=== PATIENT | female | born 1965 | race Caucasian/White ===

== ENCOUNTER 2020-10-13 19:39 | Inpatient (IN) ==
--- NOTE | 2020-10-13 21:04 | Emergency Department Note ---
Impression & Plan Cellulitis in diabetic foot, Elevated lactic acid level, Confusion, History of alcohol abuse, Fever, Hypomagnesemia ED Provider Note Provider: Fredrick Cobb MD DATE OF SERVICE: 10/13/2020 CHIEF COMPLAINT: Confusion, right foot pain HISTORY OF PRESENT ILLNESS: Patient is a 55-year-old female history of diabetes, prior alcohol abuse, Covid infection, right foot infection recently moved to the area from the [facility] presenting today complaint of right foot pain. Evidently has significant infection of this foot per initial reports previously treated. Pain over the last week or 2 has significantly worsened. reported to nursing that the patient is been quite weak and tired and lethargic since this morning. No significant traumas reported. No chest pain or shortness of breath is reported. No fever reported. Some chills reported today. Patient is evidently been a bit thirsty as well as having polyuria. No recent alcohol use is reported. She states her blood sugars have been controlled in the 200s. Patient denies focal weakness in the extremities. Did report a little bit of incontinence today. Denies significant back pain. Denies abdominal pain. Denies any headache REVIEW OF SYSTEMS: A total of 10 review of systems was obtained and negative except as stated above in the HPI. PAST MEDICAL HISTORY: As noted above MEDICATIONS: Reviewed home medication list includes insulin SOCIAL HISTORY: Recently moved to the area from [facility], lives at home with , history of alcohol abuse although reportedly sober the last several months PHYSICAL EXAM: GENERAL: alert in no acute distress on stretcher but a poor historian not oriented to year or that clearly to recent events Head: normocephalic and atraumatic EYES: No injection, discharge or icterus. PERRL NECK: Trachea midline. LUNGS: Airway patent. No retractions. Breath sounds clear with good air entry bilaterally. HEART: Regular tachycardic rate and rhythm. No chest wall tenderness ABDOMEN: Soft and non-tender, without guarding or rebound. SKIN: Acyanotic, warm, dry, without rashes EXTREMITIES: Without swelling, tenderness or deformity except for some slight erythema and warmth appreciated over the right foot and ankle on the dorsal aspect. No large wounds appreciated here. 2+ right DP pulse. NEUROLOGICAL: No focal deficits. No aphasia. No facial droop or slurred speech. Ambulatory here EK beats per sinus tachycardia. No PVC or PAC. No acute ST segment elevation or depression. QTC 513 CONTINUOUS CARDIAC MONITORING: was ordered and showed a heart rate of 90-110s bpm in sinus tachycardia and normal sinus rhythm 1 view chest x-ray per my interpretation: No evidence of pneumonia or cardiomegaly. No evidence of pleural effusion. No pneumothorax noted. 3 view right foot x-ray per my interpretation: No evidence of acute fracture or dislocation. Bony discretion of the second through fifth MTP joints of unclear chronicity. Patient's laboratory studies and imaging reviewed. Differential includes Infection, dehydration, metabolic abnormality, hy po/hyperglycemia, electrolyte disturbance, anemia, hypoxia, cardiac sources, intracerebral event, toxicologic, neurologic, as well as other pathologies. IMPRESSION/MEDICAL DECISION MAKING: Patient in this is seen with the resident physician. Upon my evaluation patient is no longer present. Patient not a significant back pain and lower suspicion for acute cauda equina at this point or spinal infection. Quite difficulty to clear history from her and although she has no focal deficits seems a bit encephalopathic and not clear with details. Patient does have a fever here. Covid test completed negative. History of Covid previously. Given some Tylenol here and some IV fluids. Some warmth and erythema to the right foot concern for infection. X-ray shows evidence of diffuse MTP bony destruction but unsure if this is related to prior infection or recurrent infection given lack of records from the outlying facility at this point. Ammonia is minimally elevated but do not believe this truly explains her confusion. CT head without acute findings. Doubt acute stroke. Patient does NOT appear meningitic and has no neck or head pain. Covered broadly vancomycin and Zosyn given history of diabetes and concerns for foot infection. Benign abdomen on exam. Chest X-ray without evidence of pneumonia. Lactate is elevated but no leukocytosis. Not hypotensive or in shock here. Given some insulin as well as again IV fluids to help with hyperglycemia with some improvement. Magnesium supplementation ordered via IV; prolonged QT noted on EKG. Troponin is not significantly elevated and doubt this represents PE or ACS. Urine not that significantly impressive for infection. Alcohol level undetectable and I doubt this is contributing to her current state. Reportedly sober since given her confusion as well as concern for infection with the elevated lactate and fevers contacted the hospitalist for admission for further care. Blood cultures were obtained. DIAGNOSIS: Cellulitis and diabetic fever, elevated lactic acid, confusion, hypomagnesemia, history of alcohol abuse, fever DISPOSITION: Hospitalist will evaluate Patient was agreeable with this plan. Past Med/Surg History Social History Smoking Status: Never smoker Hx Alcohol Use: No Hx Substance Use: No Preferred Language: Polish Crude Tester Required: No Beliefs That Will Affect Care: None Current Living Situation: Spouse Current Living Situation Comment: lives at home with Feels Safe at Home: Yes Safety Concerns: Feels Safe At This Time Assistive Devices: None Allergies Allergies Allergy/AdvReac Type Severity Reaction Status Date / Time No Known Allergies Allergy Unverified 10/13/20 23:17 Home Meds Home Medications Medication Instructions Recorded Confirmed insulin aspart U-100 100 unit/mL 1 sliding scale dose SUBCUT ACHS 10/13/20 10/13/20 subcutaneous solution (Novolog U-100 Insulin aspart) Results & Data (ED) Vital Signs Vital Signs - 24 hr 10/13/20 19:58 10/13/20 19:59 10/13/20 20:47 Temperature 37.8 C H Temperature Source Temporal Artery Scan Pulse Rate 120 H 93 H Pulse Rate [Apical] 116 H Pulse Rate from SpO2 Sensor 76 Pulse Rhythm Regular Pulse Rhythm [Apical] Pulse Strength Normal Pulse Strength [Apical] Respiratory Rate 20 22 18 Respiratory Effort / Characteristics Non-Labored Spontaneous Respiratory Depth Normal Respiratory Pattern Regular Blood Pressure 130/77 101/48 L Blood Pressure [Right Arm] 140/85 Blood Pressure Mean 94 65 Blood Pressure Mean [Right Arm] 103 Blood Pressure Position Sitting Pulse Oximetry 97 97 97 Oxygen Delivery Method Room Air Room Air Sepsis Recent Fever Within 48 Hours No Sepsis New/Unexplained Change in Mental Status No Sepsis Action Taken by Nursing No Action Required 10/13/20 21:45 10/13/20 22:20 10/14/20 00:00 Temperature 38.5 C H Temperature Source Oral Pulse Rate Pulse Rate [Apical] 116 H 115 H 102 H Pulse Rate from SpO2 Sensor Pulse Rhythm Pulse Rhythm [Apical] Regular Pulse Strength Pulse Strength [Apical] Normal Respiratory Rate 15 18 20 Respiratory Effort / Characteristics Non-Labored Non-Labored Spontaneous Respiratory Depth Normal Normal Respiratory Pattern Blood Pressure Blood Pressure [Right Arm] 147/85 H 142/91 H 118/65 Blood Pressure Mean Blood Pressure Mean [Right Arm] 105 108 82 Blood Pressure Position Pulse Oximetry 97 96 93 Oxygen Delivery Method Room Air Room Air Room Air Sepsis Recent Fever Within 48 Hours Sepsis New/Unexplained Change in Mental Status Sepsis Action Taken by Nursing Laboratory Data Result diagrams: 10/13/20 20:48 10/13/20 20:48 Lab Results 10/13/20 10/13/20 10/13/20 Range/Units 20:48 20:48 21:50 WBC 9.69 (4.8-10.8) K/uL RBC 4.50 (4.2-5.4) M/uL Hgb 11.0 L (12.0-16.0) g/dL Hct 34.4 L (37-47) % MCV 76.4 L (80-100) fL MCH 24.4 L (25-34) pg MCHC 32.0 (32-36) g/dL RDW Std Deviation 45.9 (36.4-46.3) fL RDW Coeff of Jeremie 16.6 H (11.5-14.5) % Plt Count 221 (130-400) K/uL MPV 10.3 (7.4-10.4) fL Immature Gran % (Auto) 0.2 % Neut % (Auto) 62.1 % Lymph % (Auto) 24.3 % [place] % (Auto) 13.0 % Eos % (Auto) 0.2 % Baso % (Auto) 0.2 % Neut # (Auto) 6.02 (1.4-6.5) K/uL Lymph # (Auto) 2.35 (1.2-3.4) K/uL [place] # (Auto) 1.26 H (0.11-0.59) K/uL Eos # (Auto) 0.02 (0-0.5) K/uL Baso # (Auto) 0.02 (0-0.2) K/uL Immature Gran # (Auto) 0.02 (0.00-0.02) K/uL Sodium 131 L (136-145) mmol/L Potassium 3.6 (3.5-5.1) mmol/L Chloride 100 (98-107) mmol/L Carbon Dioxide 22 (21-32) mmol/L Anion Gap 9.0 (3-11) BUN 5 L (7-18) mg/dl Creatinine 0.71 (0.6-1.2) mg/dl Est Cr Clr Drug Dosing 91.4 ml/min Est GFR ( Amer) 110.4 ml/min Est GFR (Non-Af Amer) 95.2 ml/min BUN/Creatinine Ratio 6.6 L (10-20) Glucose 311 H* (70-99) mg/dl POC Glucose (70-99) mg/dl Lactate (0.4-2.0) mmol/L Calcium 8.7 (8.5-10.1) mg/dl Magnesium 1.6 L (1.8-2.4) mg/dl Total Bilirubin 2.3 H (0.2-1) mg/dl AST 36 (15-37) U/L ALT 30 (12-78) U/L Alkaline Phosphatase 152 H (45-117) U/L Ammonia (11-32) umol/L Troponin I < 0.015 (0-0.045) ng/ml C-Reactive Protein (0-0.29) mg/dl Total Protein 8.5 H (6.4-8.2) gm/dl Albumin 3.0 L (3.4-5.0) gm/dl Globulin 5.5 H (2.5-4.0) gm/dl Albumin/Globulin Ratio 0.5 L (0.9-2) Beta-Hydroxybutyric Acd 5.70 H (0.2-2.81) mg/dl Urine Color Yellow Urine Appearance Cloudy A (Clear) Urine pH 5.0 (4.5-7.5) Ur Specific [place] 1.026 (1.000-1.030) Urine Protein Trace H (Negative) Urine Glucose (UA) 3+ H (Negative) Urine Ketones 2+ H (Negative) Urine Blood Negative (Negative) Urine Nitrite Negative (Negative) Urine Bilirubin Negative (Negative) Urine Urobilinogen Negative (Negative) Ur Leukocyte Esterase Negative (Negative) Urine WBC (Auto) 10-30 H (0-5) /hpf Urine RBC (Auto) 0-4 (0-4) /hpf U Hyaline Cast (Auto) 1-5 (0-5) /lpf U Epithel Cells (Auto) 20-30 H (0-5) /lpf Urine Bacteria (Auto) 4+ H (Negative) Urine Yeast Present A (None Prsent) Ethyl Alcohol mg/dL (0-3) mg/dl COVID-19 Eval Order SARS-CoV-2 (PCR) (Negative) 10/13/20 10/13/20 10/13/20 Range/Units 22:09 22:18 22:20 WBC (4.8-10.8) K/uL RBC (4.2-5.4) M/uL Hgb (12.0-16.0) g/dL Hct (37-47) % MCV (80-100) fL MCH (25-34) pg MCHC (32-36) g/dL RDW Std Deviation (36.4-46.3) fL RDW Coeff of Jeremie (11.5-14.5) % Plt Count (130-400) K/uL MPV (7.4-10.4) fL Immature Gran % (Auto) % Neut % (Auto) % Lymph % (Auto) % [place] % (Auto) % Eos % (Auto) % Baso % (Auto) % Neut # (Auto) (1.4-6.5) K/uL Lymph # (Auto) (1.2-3.4) K/uL [place] # (Auto) (0.11-0.59) K/uL Eos # (Auto) (0-0.5) K/uL Baso # (Auto) (0-0.2) K/uL Immature Gran # (Auto) (0.00-0.02) K/uL Sodium (136-145) mmol/L Potassium (3.5-5.1) mmol/L Chloride (98-107) mmol/L Carbon Dioxide (21-32) mmol/L Anion Gap (3-11) BUN (7-18) mg/dl Creatinine (0.6-1.2) mg/dl Est Cr Clr Drug Dosing ml/min Est GFR ( Amer) ml/min Est GFR (Non-Af Amer) ml/min BUN/Creatinine Ratio (10-20) Glucose (70-99) mg/dl POC Glucose 339 H* (70-99) mg/dl Lactate 3.6 H* (0.4-2.0) mmol/L Calcium (8.5-10.1) mg/dl Magnesium (1.8-2.4) mg/dl Total Bilirubin (0.2-1) mg/dl AST (15-37) U/L ALT (12-78) U/L Alkaline Phosphatase (45-117) U/L Ammonia (11-32) umol/L Troponin I (0-0.045) ng/ml C-Reactive Protein 2.34 H (0-0.29) mg/dl Total Protein (6.4-8.2) gm/dl Albumin (3.4-5.0) gm/dl Globulin (2.5-4.0) gm/dl Albumin/Globulin Ratio (0.9-2) Beta-Hydroxybutyric Acd (0.2-2.81) mg/dl Urine Color Urine Appearance (Clear) Urine pH (4.5-7.5) Ur Specific [place] (1.000-1.030) Urine Protein (Negative) Urine Glucose (UA) (Negative) Urine Ketones (Negative) Urine Blood (Negative) Urine Nitrite (Negative) Urine Bilirubin (Negative) Urine Urobilinogen (Negative) Ur Leukocyte Esterase (Negative) Urine WBC (Auto) (0-5) /hpf Urine RBC (Auto) (0-4) /hpf U Hyaline Cast (Auto) (0-5) /lpf U Epithel Cells (Auto) (0-5) /lpf Urine Bacteria (Auto) (Negative) Urine Yeast (None Prsent) Ethyl Alcohol mg/dL (0-3) mg/dl COVID-19 Eval Order SARS-CoV-2 (PCR) (Negative) 10/13/20 10/13/20 10/13/20 Range/Units 22:20 22:20 22:31 WBC (4.8-10.8) K/uL RBC (4.2-5.4) M/uL Hgb (12.0-16.0) g/dL Hct (37-47) % MCV (80-100) fL MCH (25-34) pg MCHC (32-36) g/dL RDW Std Deviation (36.4-46.3) fL RDW Coeff of Jeremie (11.5-14.5) % Plt Count (130-400) K/uL MPV (7.4-10.4) fL Immature Gran % (Auto) % Neut % (Auto) % Lymph % (Auto) % [place] % (Auto) % Eos % (Auto) % Baso % (Auto) % Neut # (Auto) (1.4-6.5) K/uL Lymph # (Auto) (1.2-3.4) K/uL [place] # (Auto) (0.11-0.59) K/uL Eos # (Auto) (0-0.5) K/uL Baso # (Auto) (0-0.2) K/uL Immature Gran # (Auto) (0.00-0.02) K/uL Sodium (136-145) mmol/L Potassium (3.5-5.1) mmol/L Chloride (98-107) mmol/L Carbon Dioxide (21-32) mmol/L Anion Gap (3-11) BUN (7-18) mg/dl Creatinine (0.6-1.2) mg/dl Est Cr Clr Drug Dosing ml/min Est GFR ( Amer) ml/min Est GFR (Non-Af Amer) ml/min BUN/Creatinine Ratio (10-20) Glucose (70-99) mg/dl POC Glucose (70-99) mg/dl Lactate (0.4-2.0) mmol/L Calcium (8.5-10.1) mg/dl Magnesium (1.8-2.4) mg/dl Total Bilirubin (0.2-1) mg/dl AST (15-37) U/L ALT (12-78) U/L Alkaline Phosphatase (45-117) U/L Ammonia 47.6 H (11-32) umol/L Troponin I (0-0.045) ng/ml C-Reactive Protein (0-0.29) mg/dl Total Protein (6.4-8.2) gm/dl Albumin (3.4-5.0) gm/dl Globulin (2.5-4.0) gm/dl Albumin/Globulin Ratio (0.9-2) Beta-Hydroxybutyric Acd (0.2-2.81) mg/dl Urine Color Urine Appearance (Clear) Urine pH (4.5-7.5) Ur Specific [place] (1.000-1.030) Urine Protein (Negative) Urine Glucose (UA) (Negative) Urine Ketones (Negative) Urine Blood (Negative) Urine Nitrite (Negative) Urine Bilirubin (Negative) Urine Urobilinogen (Negative) Ur Leukocyte Esterase (Negative) Urine WBC (Auto) (0-5) /hpf Urine RBC (Auto) (0-4) /hpf U Hyaline Cast (Auto) (0-5) /lpf U Epithel Cells (Auto) (0-5) /lpf Urine Bacteria (Auto) (Negative) Urine Yeast (None Prsent) Ethyl Alcohol mg/dL < 3.0 (0-3) mg/dl COVID-19 Eval Order Covid19 at [facility] SARS-CoV-2 (PCR) (Negative) 10/13/20 Range/Units 22:31 WBC (4.8-10.8) K/uL RBC (4.2-5.4) M/uL Hgb (12.0-16.0) g/dL Hct (37-47) % MCV (80-100) fL MCH (25-34) pg MCHC (32-36) g/dL RDW Std Deviation (36.4-46.3) fL RDW Coeff of Jeremie (11.5-14.5) % Plt Count (130-400) K/uL MPV (7.4-10.4) fL Immature Gran % (Auto) % Neut % (Auto) % Lymph % (Auto) % [place] % (Auto) % Eos % (Auto) % Baso % (Auto) % Neut # (Auto) (1.4-6.5) K/uL Lymph # (Auto) (1.2-3.4) K/uL [place] # (Auto) (0.11-0.59) K/uL Eos # (Auto) (0-0.5) K/uL Baso # (Auto) (0-0.2) K/uL Immature Gran # (Auto) (0.00-0.02) K/uL Sodium (136-145) mmol/L Potassium (3.5-5.1) mmol/L Chloride (98-107) mmol/L Carbon Dioxide (21-32) mmol/L Anion Gap (3-11) BUN (7-18) mg/dl Creatinine (0.6-1.2) mg/dl Est Cr Clr Drug Dosing ml/min Est GFR ( Amer) ml/min Est GFR (Non-Af Amer) ml/min BUN/Creatinine Ratio (10-20) Glucose (70-99) mg/dl POC Glucose (70-99) mg/dl Lactate (0.4-2.0) mmol/L Calcium (8.5-10.1) mg/dl Magnesium (1.8-2.4) mg/dl Total Bilirubin (0.2-1) mg/dl AST (15-37) U/L ALT (12-78) U/L Alkaline Phosphatase (45-117) U/L Ammonia (11-32) umol/L Troponin I (0-0.045) ng/ml C-Reactive Protein (0-0.29) mg/dl Total Protein (6.4-8.2) gm/dl Albumin (3.4-5.0) gm/dl Globulin (2.5-4.0) gm/dl Albumin/Globulin Ratio (0.9-2) Beta-Hydroxybutyric Acd (0.2-2.81) mg/dl Urine Color Urine Appearance (Clear) Urine pH (4.5-7.5) Ur Specific [place] (1.000-1.030) Urine Protein (Negative) Urine Glucose (UA) (Negative) Urine Ketones (Negative) Urine Blood (Negative) Urine Nitrite (Negative) Urine Bilirubin (Negative) Urine Urobilinogen (Negative) Ur Leukocyte Esterase (Negative) Urine WBC (Auto) (0-5) /hpf Urine RBC (Auto) (0-4) /hpf U Hyaline Cast (Auto) (0-5) /lpf U Epithel Cells (Auto) (0-5) /lpf Urine Bacteria (Auto) (Negative) Urine Yeast (None Prsent) Ethyl Alcohol mg/dL (0-3) mg/dl COVID-19 Eval Order SARS-CoV-2 (PCR) NEGATIVE (Negative) Administered Medications Discontinued Medications Acetaminophen (Acetaminophen 500 Mg Tab) 1,000 mg PO NOW STA Stop: 10/13/20 22:02 Last Admin: 10/13/20 22:15 Dose: 1,000 mg Documented by: [id number] Sodium Chloride (Nss) 500 mls @ 999 mls/hr IV .Q31M ONE Stop: 10/13/20 22:25 Last Infusion: 10/13/20 23:20 Dose: 0 mls/hr Documented by: [id number] Admin: 10/13/20 22:17 Dose: 999 mls/hr Documented by: [id number] Magnesium Sulfate/Dextrose (Magnesium Sulfate / D5w) 1 gm in 100 mls @ 100 mls/hr IV NOW STA Stop: 10/13/20 22:57 Last Infusion: 10/13/20 23:59 Dose: 0 mls/hr Documented by: [id number] Admin: 10/13/20 22:15 Dose: 100 mls/hr Documented by: [id number] Piperacillin Sod/Tazobactam Sod (Zosyn) 4.5 gm in 120 mls @ 240 mls/hr IV NOW ONE Stop: 10/13/20 23:27 Last Infusion: 10/13/20 23:34 Dose: 0 mls/hr Documented by: [id number] Admin: 10/13/20 23:11 Dose: 240 mls/hr Documented by: [id number] Sodium Chloride (Nss 1000ml) 1,000 mls @ 999 mls/hr IV .Q1H1M ONE Stop: 10/13/20 23:59 Last Infusion: 10/14/20 01:50 Dose: 0 mls/hr Documented by: [id number] Admin: 10/13/20 23:33 Dose: 999 mls/hr Documented by: [id number] Vancomycin HCl 1,500 mg/ (Sodium Chloride) 530 mls @ 200 mls/hr IV NOW ONE Stop: 10/14/20 02:08 Last Admin: 10/13/20 23:59 Dose: 200 mls/hr Documented by: [id number] Insulin Aspart (Insulin Aspart Per Unit) 4 units SC ONE STA Stop: 10/13/20 22:09 Last Admin: 10/13/20 22:20 Dose: 4 units Documented by: [id number] Cosigned by: [id number] Magnesium Oxide (Magnesium Oxide 400 Mg Tab) 400 mg PO ONE ONE Stop: 10/13/20 21:57 Last Admin: 10/13/20 22:23 Dose: Not Given Documented by: [id number] Potassium Chloride (Potassium Chloride Pwd 20 Meq Pack) 40 meq PO ONE ONE Stop: 10/13/20 22:00 Last Admin: 10/13/20 22:26 Dose: 40 meq Documented by: [id number] Discharge Plan Visit Data Chief Complaint: Illness Stated Complaint: DIABETIC, WEAK, LETHARGIC, BLEEDING, INCONTINENT ED Provider: Fredrick Cobb ED Midlevel Provider: Kevin Zartae Discharge Problem: Cellulitis in diabetic foot, Elevated lactic acid level, Confusion, History of alcohol abuse, Fever, Hypomagnesemia Patient Disposition: Admitted As Inpatient Discharge Instructions Interventions: ED Discharge Assessment Last Done: 10/14/20 01:21
[2020-10-13 21:12] LABS: Basophils # (auto) 0.02 K/uL (0-0.2); Basophils % (auto) 0.2 %; Eosinophils # (auto) 0.02 K/uL (0-0.5); Eosinophils % (auto) 0.2 %; Hematocrit (blood only) 34.4 % (37-47); Immature Granulocytes # (auto) 0.02 K/uL (0.00-0.02); Immature Granulocytes % (auto) 0.2 %; Lymphocytes # (auto) 2.35 K/uL (1.2-3.4); Lymphocytes % (auto) 24.3 %; Mean Corpuscular Hemoglobin 24.4 pg (25-34); Mean Corpuscular Volume 76.4 fL (80-100); Mean Platelet Volume 10.3 fL (7.4-10.4); Monocytes # (auto) 1.26 K/uL (0.11-0.59); Neutrophils # (auto) 6.02 K/uL (1.4-6.5); Neutrophils % (auto) 62.1 %; Platelet Count 221 K/uL (130-400); RDW Coefficient of Variation 16.6 % (11.5-14.5); RDW Standard Deviation 45.9 fL (36.4-46.3); White Blood Count 9.69 K/uL (4.8-10.8)
[2020-10-13 21:30] LABS: Alanine Aminotransferase 30 U/L (12-78); Albumin Globulin Ratio 0.5 (0.9-2); Alkaline Phosphatase 152 U/L (45-117); Aspartate Aminotransferase 36 U/L (15-37); BUN Creatinine Ratio 6.6 (10-20); Bilirubin,Total 2.3 mg/dl (0.2-1); Blood Urea Nitrogen 5 mg/dl (7-18); Calcium 8.7 mg/dl (8.5-10.1); Carbon Dioxide 22 mmol/L (21-32); Chloride 100 mmol/L (98-107); Creatinine Clr Calc Pharmacy 91.4 ml/min; Est GFR (African American) 110.4 ml/min; Est GFR (Non-African American) 95.2 ml/min; Globulin 5.5 gm/dl (2.5-4.0); Glucose 311 mg/dl (70-99); Magnesium 1.6 mg/dl (1.8-2.4); Potassium 3.6 mmol/L (3.5-5.1); Sodium 131 mmol/L (136-145); Total Protein 8.5 gm/dl (6.4-8.2); Troponin I < 0.015 ng/ml (0-0.045)
[2020-10-13] MEDS ORDERED: SODIUM CHLORIDE 0.9% 500 ML IV ONE (21:55)
[2020-10-13] MEDS ORDERED: MAGNESIUM OXIDE 400 MG TAB PO ONE (21:56)
[2020-10-13] MEDS ORDERED: MAGNESIUM SULFATE / D5W 1 GM/100 ML BAG IV STA (21:58)
[2020-10-13] MEDS ORDERED: INSULIN ASPART 100 UNITS/ML 3 ML PEN SC ONE (21:59)
[2020-10-13] MEDS ORDERED: POTASSIUM CHLORIDE PWD 20 MEQ PACK PO ONE (21:59)
[2020-10-13] MEDS ORDERED: ACETAMINOPHEN 500 MG TAB PO STA (22:01)
[2020-10-13] MEDS ORDERED: INSULIN ASPART PER UNIT SC STA (22:08)
[2020-10-13 22:09] LABS: Appearance Urine Cloudy (Clear); Bacteria Urine Automated 4+ (Negative); Bilirubin Urine Negative (Negative); Blood Urine Negative (Negative); Color Urine Yellow; Epithelial Cell Urine Auto 20-30 /lpf (0-5); Glucose Urine UA 3+ (Negative); Ketones Urine 2+ (Negative); Leukocyte Esterase Urine Negative (Negative); Nitrite Urine Negative (Negative); Protein Urine Trace (Negative); Specific Gravity Urine 1.026 (1.000-1.030); Urobilinogen Urine Negative (Negative)
[2020-10-13 22:23] LABS: RBC Urine Automated 0-4 /hpf (0-4)
[2020-10-13 22:44] LABS: C Reactive Protein 2.34 mg/dl (0-0.29)
[2020-10-13] MEDS ORDERED: PIPERACILL/TAZOBAC CONSULT ACTIVE PRN (22:58)
[2020-10-13] MEDS ORDERED: PIPERACILLIN/TAZOBACTAM 4.5 GM/120 ML BAG IV ONE (22:58)
[2020-10-13] MEDS ORDERED: SODIUM CHLORIDE 0.9% 1000ML 1,000 ML IV ONE (22:59)
[2020-10-13] MEDS ORDERED: VANCOMYCIN HCL 1,500 MG in SODIUM CHLORIDE 0.9% 500 ML IV ONE (23:30)
[2020-10-13] MEDS ORDERED: VANCOMYCIN CONSULT ACTIVE PRN (23:30)
[2020-10-14] MEDS ORDERED: INSULIN GLARGINE SOLOSTAR 100 UNITS/ML 3 ML PEN SC STA (00:30)
[2020-10-14] MEDS ORDERED: GLUCAGON FOR INJ 1 MG VIAL SQ PRN (02:01)
[2020-10-14] MEDS ORDERED: PIPERACILL/TAZOBAC CONSULT ACTIVE PRN (02:01)
[2020-10-14] MEDS ORDERED: CARBOHYDRATES FOR HYPOGLYCEMIA PO PRN (02:01)
[2020-10-14] MEDS ORDERED: VANCOMYCIN CONSULT ACTIVE PRN (02:01)
[2020-10-14] MEDS ORDERED: DEXTROSE 50% 50 ML SYRINGE IV PRN (02:01)
[2020-10-14] MEDS ORDERED: ONDANSETRON INJ 2 MG/ML 2 ML VIAL IV PRN (02:01)
[2020-10-14] MEDS ORDERED: GLUCOSE 40% GEL 15 GM TUBE PO PRN (02:01)
[2020-10-14] MEDS ORDERED: GLUCOSE 10 TABS/TUBE PO PRN (02:01)
[2020-10-14] MEDS: INSULIN ASPART 100 UNITS/ML 3 ML PEN SC SCH ×4 (02:56→21:39)
[2020-10-14] MEDS: NSS + 20MEQ KCL 20 MEQ/1,000 ML BAG IV SCH ×3 (02:57→16:34)
[2020-10-14] MEDS: PIPERACILLIN/TAZOBACTAM 3.375 GM in DEXTROSE 5% 100 ML IV SCH ×3 (03:03→21:38)
[2020-10-14 03:05] LABS: Phosphorus 2.4 mg/dl (2.5-4.9)
[2020-10-14] MEDS ORDERED: SODIUM CHLORIDE 0.9% 1000ML 1,000 ML IV SCH (05:07)
--- NOTE | 2020-10-14 05:35 | History & Physical Report ---
Date of Service October 14, 2020 Assessment & Plan (1) Encephalopathy acute: Plan: Acute encephalopathy- We did not order baseline is May be associated with urinary tract infection and or diabetic foot infection Follow progress as treatments continue (2) Cellulitis in diabetic foot: Plan: Right foot cellulitis/severe deformity of MTPs 2 through 5- Patient reportedly had history of infection in right foot. Question whether this may have been a site of osteomyelitis. Further imaging such as CT or MRI is indicated (3) Confusion: Plan: Confusion/secondary to acute encephalopathy- Follow clinical examination treatments occur to underlying causes (4) History of alcohol abuse: Plan: No recent use per family. Would have a low threshold for starting AWSS protocol (5) Hypomagnesemia: Plan: Magnesium 1.6 upon admission, replaced with 2 g magnesium sulfate IV. Repeat laboratories in a.m. (6) Diabetes mellitus: Plan: Glucose 311 upon admission Start Lantus insulin 10 units subcu now, and then 10 units subcu twice daily. Placed on Accu-Cheks before meals and at bedtime with NovoLog coverage per scale (7) Right foot infection: Plan: See above (8) UTI (urinary tract infection): Plan: Follow urine culture and sensitivity On vancomycin IV and Zosyn IV as noted above Admission and Anticipated Discharge Date Admission Date: October 14, 2020 History of Present Illness Chief Complaint: The patient was brought to the emergency department by the melva palafox's , who reports that the patient has been quite weak, lethargic and having decreased responsiveness since earlier in the morning. The patient herself is unable to contribute significantly to her HPI or review of systems due to altered mental status Primary Care Provider: NO PCP Little information is provided by patient due to altered mental state. Her does relate that she has had a history of diabetes mellitus, former alcohol abuse, low magnesium and has had a infection in her right foot requiring IV antibiotics. Allergies Allergy/AdvReac Type Severity Reaction Status Date / Time No Known Allergies Allergy Unverified 10/13/20 23:17 Home Medications Medication Instructions Recorded Confirmed Type insulin aspart U-100 100 unit/mL 1 sliding scale dose SUBCUT ACHS 10/13/20 10/13/20 History subcutaneous solution (Novolog U-100 Insulin aspart) Past Med/Surg History Medical History (Updated 10/14/20 @ 05:31 by Mariusz Reese MD) Diabetes mellitus Social History Smoking Status: Never smoker Hx Alcohol Use: No Hx Substance Use: No Preferred Language: E[place] Wire Brusher Required: No Beliefs That Will Affect Care: None Current Living Situation: Spouse Current Living Situation Comment: lives at home with Feels Safe at Home: Yes Safety Concerns: Feels Safe At This Time Assistive Devices: None Review of Systems Review of Systems: Unobtainable due to cognitive status Physical Exam Physical Exam: The patient is lethargic, unable to communicate, normocephalic and atraumatic, lying in bed and in no acute distress. HEENT--PERRL, EOMI, mucous membranes and oropharynx dry. Neck--supple. No JVD. No bruits. Thyroid normal, trachea midline, no adenopathy. Heart--normal S1 and S2. No murmurs, rubs or gallops. Lungs--clear bilaterally, no respiratory distress, no accessory muscle use. Abdomen--normal bowel sounds and soft. Nontender. Nondistended, no hernias or masses, no organomegaly. Extremities--no cyanosis or clubbing. No edema. There are good distal pulses b/l. Dermatologic--skin is mildly dry. Right dorsal surface of foot with mild erythema and warmth Neurologic--cranial nerves II through XII grossly intact. Rheumatologic-limited exam Psychiatric--lethargic. Results & Data Results & Data ([facility]) Vital Signs (Past 12 Hours) Vital Signs Temp Pulse Pulse Resp BP BP Pulse Ox 10/14/20 03:41 106 H 10/14/20 02:02 99.1 F 105 H 16 122/69 97 10/14/20 01:12 98.6 F 10/14/20 00:00 102 H 20 118/65 93 10/13/20 22:20 115 H 18 142/91 H 96 10/13/20 21:45 101.3 F H 116 H 15 147/85 H 97 10/13/20 20:47 116 H 18 140/85 97 10/13/20 19:59 93 H 22 101/48 L 97 10/13/20 19:58 100.0 F H 120 H 20 130/77 97 Laboratory Results Laboratory Results WBC 9.69 K/uL (4.8-10.8) 10/13/20 20:48 RBC 4.50 M/uL (4.2-5.4) 10/13/20 20:48 Hgb 11.0 g/dL (12.0-16.0) L 10/13/20 20:48 Hct 34.4 % (37-47) L 10/13/20 20:48 MCV 76.4 fL (80-100) L 10/13/20 20:48 MCH 24.4 pg (25-34) L 10/13/20 20:48 MCHC 32.0 g/dL (32-36) 10/13/20 20:48 RDW Std Deviation 45.9 fL (36.4-46.3) 10/13/20 20:48 RDW Coeff of Jeremie 16.6 % (11.5-14.5) H 10/13/20 20:48 Plt Count 221 K/uL (130-400) 10/13/20 20:48 MPV 10.3 fL (7.4-10.4) 10/13/20 20:48 Immature Gran % (Auto) 0.2 % 10/13/20 20:48 Neut % (Auto) 62.1 % 10/13/20 20:48 Lymph % (Auto) 24.3 % 10/13/20 20:48 Phillips % (Auto) 13.0 % 10/13/20 20:48 Eos % (Auto) 0.2 % 10/13/20 20:48 Baso % (Auto) 0.2 % 10/13/20 20:48 Neut # (Auto) 6.02 K/uL (1.4-6.5) 10/13/20 20:48 Lymph # (Auto) 2.35 K/uL (1.2-3.4) 10/13/20 20:48 Phillips # (Auto) 1.26 K/uL (0.11-0.59) H 10/13/20 20:48 Eos # (Auto) 0.02 K/uL (0-0.5) 10/13/20 20:48 Baso # (Auto) 0.02 K/uL (0-0.2) 10/13/20 20:48 Immature Gran # (Auto) 0.02 K/uL (0.00-0.02) 10/13/20 20:48 Sodium 131 mmol/L (136-145) L 10/13/20 20:48 Potassium 3.6 mmol/L (3.5-5.1) 10/13/20 20:48 Chloride 100 mmol/L (98-107) 10/13/20 20:48 Carbon Dioxide 22 mmol/L (21-32) 10/13/20 20:48 Anion Gap 9.0 (3-11) 10/13/20 20:48 BUN 5 mg/dl (7-18) L 10/13/20 20:48 Creatinine 0.71 mg/dl (0.6-1.2) 10/13/20 20:48 Est Cr Clr Drug Dosing 91.4 ml/min 10/13/20 20:48 Est GFR ( Amer) 110.4 ml/min 10/13/20 20:48 Est GFR (Non-Af Amer) 95.2 ml/min 10/13/20 20:48 BUN/Creatinine Ratio 6.6 (10-20) L 10/13/20 20:48 Glucose 311 mg/dl (70-99) H* 10/13/20 20:48 POC Glucose 292 mg/dl (70-99) H 10/14/20 01:48 Lactate 2.3 mmol/L (0.4-2.0) H* 10/14/20 00:45 Calcium 8.7 mg/dl (8.5-10.1) 10/13/20 20:48 Phosphorus 2.4 mg/dl (2.5-4.9) L 10/13/20 22:09 Magnesium 1.6 mg/dl (1.8-2.4) L 10/13/20 20:48 Total Bilirubin 2.3 mg/dl (0.2-1) H 10/13/20 20:48 AST 36 U/L (15-37) 10/13/20 20:48 ALT 30 U/L (12-78) 10/13/20 20:48 Alkaline Phosphatase 152 U/L (45-117) H 10/13/20 20:48 Ammonia 47.6 umol/L (11-32) H 10/13/20 22:20 Troponin I < 0.015 ng/ml (0-0.045) 10/13/20 20:48 C-Reactive Protein 2.34 mg/dl (0-0.29) H 10/13/20 22:09 Total Protein 8.5 gm/dl (6.4-8.2) H 10/13/20 20:48 Albumin 3.0 gm/dl (3.4-5.0) L 10/13/20 20:48 Globulin 5.5 gm/dl (2.5-4.0) H 10/13/20 20:48 Albumin/Globulin Ratio 0.5 (0.9-2) L 10/13/20 20:48 Beta-Hydroxybutyric Acd 5.70 mg/dl (0.2-2.81) H 10/13/20 20:48 Urine Color Yellow 10/13/20 21:50 Urine Appearance Cloudy (Clear) A 10/13/20 21:50 Urine pH 5.0 (4.5-7.5) 10/13/20 21:50 Ur Specific [place] 1.026 (1.000-1.030) 10/13/20 21:50 Urine Protein Trace (Negative) H 10/13/20 21:50 Urine Glucose (UA) 3+ (Negative) H 10/13/20 21:50 Urine Ketones 2+ (Negative) H 10/13/20 21:50 Urine Blood Negative (Negative) 10/13/20 21:50 Urine Nitrite Negative (Negative) 10/13/20 21:50 Urine Bilirubin Negative (Negative) 10/13/20 21:50 Urine Urobilinogen Negative (Negative) 10/13/20 21:50 Ur Leukocyte Esterase Negative (Negative) 10/13/20 21:50 Urine WBC (Auto) 10-30 /hpf (0-5) H 10/13/20 21:50 Urine RBC (Auto) 0-4 /hpf (0-4) 10/13/20 21:50 U Hyaline Cast (Auto) 1-5 /lpf (0-5) 10/13/20 21:50 U Epithel Cells (Auto) 20-30 /lpf (0-5) H 10/13/20 21:50 Urine Bacteria (Auto) 4+ (Negative) H 10/13/20 21:50 Urine Yeast Present (None Prsent) A 10/13/20 21:50 Ethyl Alcohol mg/dL < 3.0 mg/dl (0-3) 10/13/20 22:20 COVID-19 Eval Order Covid19 at [facility] 10/13/20 22:31 SARS-CoV-2 (PCR) NEGATIVE (Negative) 10/13/20 22:31 Diagnostic Findings [facility] Patient: ROGER LAZCANO (Female) : 63 Status: ER Date: 10/13/20 22:54 Room #: History: CONFUSION Slices: 58 Priors: Tech: Darius Morris @ [id number] Exams: CT HEAD Contrast: Accession Numbers: [id number] Referring Physician: DEBORAH BURNHAM Preliminary Findings Only See Final Report For Complete Findings CT HEAD: Impression: No intracranial hemorrhage or other acute intracranial abnormality. No mass lesion, mass effect, or hydrocephalus. Radiologist: Aleksadnar Pascual MD Study ready at 22:56 and initial results transmitted at 23:21 *This report constitutes a preliminary interpretation only. Non-acute findings felt to be unrelated to the clinical presentation may not be discussed in this report. The study will be interpreted and a final report will be generated by the local Radiologist the following shift. To reach the hospital radiology department call [phone]. If a discrepancy is found between the preliminary and final interpretations of this study, please notify us via our Client Portal at [email or web address] under QA Exams.You can also fax this report with a description of the discrepancy, or include the final report, to our daytime fax number [phone].If faxing, please indicate the severity of discrepancy using one of the following categories: [ ] 1 - Agree/Informational [ ] 2 - Unlikely to Affect Management [ ] 3 - Possible Eventual Change of Management [ ] 4 - Probable Immediate Change of Management For all other patient related information, please fax us at [phone]. [id number] Code Status & VTE Plan Code Status Full code VTE Prophylaxis Plan VTE Prophylaxis will be ordered: Yes PG Care Time/CCT Total # of Minutes Spent Total Time Spent with Patient: Total time spent is greater than 50% in coordination of care (as documented) at patient's floor/unit and/or counseling patient: Coding Level of Care Code 50932 Initial Inpt Care Lvl 3 Diagnoses Cellulitis in diabetic foot E11.628; L03.119 Confusion R41.0 History of alcohol abuse F10.11 Hypomagnesemia E83.42 Diabetes mellitus E11.9 Right foot infection L08.9 UTI (urinary tract infection) N39.0 Encephalopathy acute G93.40
[2020-10-14] MEDS: ENOXAPARIN INJ 40 MG/0.4 ML SYR SQ SCH (06:01)
[2020-10-14 06:23] LABS: Creatinine Clr Calc Pharmacy 94.8 ml/min; Est GFR (African American) 116.8 ml/min; Est GFR (Non-African American) 100.8 ml/min
--- NOTE | 2020-10-14 06:37 | CT Scan Report ---
CT OF THE HEAD WITHOUT CONTRAST CLINICAL HISTORY: confusion COMPARISON STUDY: No previous studies for comparison. CT DOSE: 537.48 mGy.cm TECHNIQUE: Helical axial images of the head were obtained without IV contrast. Automated exposure con trol was utilized for the study. A dose lowering technique was utilized adhering to the principles o f ALARA. FINDINGS: No acute intracranial hemorrhage, midline shift or mass effect is present. The ventricular system is unremarkable. The basal cisterns are patent. No extra-axial collections are present. There are no findings to suggest acute dural sinus thrombosis or acute territorial infarct. No significant calvarial abnormalities are present. Visualized portions of the sinuses and mastoid air cells are kwesi ar. IMPRESSION: No acute intracranial findings. ACT 112: Negative or not required by law. Electronically signed by: Milton Mcintosh M.D. 10/14/2020 6:35 AM
--- NOTE | 2020-10-14 07:48 | XRay Report ---
XR chest 1V portable CLINICAL HISTORY: weakness COMPARISON STUDY: No previous studies for comparison. FINDINGS: Lung volumes are normal. Lungs are clear. There is no pneumothorax or pleural effusion. Car diac size is normal. Mediastinal contours are normal. There is no evidence for pulmonary edema. Incid ental note is made of a 4.4 cm density which projects over the left upper quadrant. IMPRESSION: 1. No acute cardiopulmonary findings. 2. Indeterminate 4.4 cm density which projects over the left upper quadrant of the abdomen. This coul d be on or within the patient. A foreign body cannot be excluded. Follow-up KUB is suggested. ACT 112: Negative or not required by law. Electronically signed by: Milton Mcintosh M.D. 10/14/2020 7:47 AM
[2020-10-14] MEDS: ACETAMINOPHEN 325 MG TAB PO PRN ×2 (07:53→23:04)
[2020-10-14 08:00] LABS: Estimated Average Glucose 424 mg/dl; Hemoglobin A1C 16.4 % (4.5-5.6)
[2020-10-14] MEDS ORDERED: PNEUMOCOCCAL POLYSACCHARIDES 25 MCG/0.5 ML VIAL/SYR IM ONE (08:00)
--- NOTE | 2020-10-14 08:13 | XRay Report ---
XR foot RT min 3V routine CLINICAL HISTORY: pain COMPARISON: None FINDINGS: No acute fracture is identified. Note is made of extensive erosive changes of the right se cond through fifth tarsometatarsal joints. There is associated soft tissue swelling. IMPRESSION: 1. No acute fracture. 2. Extensive erosive changes of the right second through fifth metatarsals with associated soft tissu e swelling. The radiographic appearance is nonspecific. This could be degenerative or infectious in e tiology. ACT 112: Negative or not required by law. Electronically signed by: Milton Mcintosh M.D. 10/14/2020 8:12 AM
[2020-10-14] MEDS ORDERED: INSULIN GLARGINE SOLOSTAR 100 UNITS/ML 3 ML PEN SC SCH (09:00)
--- NOTE | 2020-10-14 09:08 | Electrocardiogram Report ---
Test Reason : Blood Pressure : / mmHG Vent. Rate : 117 BPM Atrial Rate : 117 BPM P-R Int : 132 ms QRS Dur : 080 ms QT Int : 368 ms P-R-T Axes : 073 060 053 degrees QTc Int : 513 ms Sinus tachycardia Otherwise normal ECG No previous ECGs available Confirmed by Nilton Tapia ([id number]) on 10/14/2020 9:07:57 AM Referred By: REFERRED SELF Confirmed By:Nilton Tapia
--- NOTE | 2020-10-14 09:26 | Pharmacy Report ---
Pharmacy Abx Dose Short Note - Date of Service October 14, 2020 - Assessment & Plan Assessment 55 year old F started on vancomycin and zosyn for concerns of possible foot infection/osteomyelitis. Foot xray with extensive erosive changes, possibly degenerative or infectious etiology. Blood/urine cultures are pending currently. Patient still with fevers this AM Plan Vancomycin * Loading dose of 1500 mg x 1 given last evening (~22 mg/kg/dose) * Started on vancomycin 1 gm iv q 8 hrs per vancomycin AUC nomogram dosing (~15 mg/kg/dose) * Plan to obtain trough prior tot he 4th maintenance dose to ensure therapeutic Zosyn * 3.375 gm iv q 8 hr - appropriate for CrCl >20 Pharmacy will continue to follow and will adjust dose/frequency as necessary. Thank you.
[2020-10-14] MEDS ORDERED: LACTULOSE SYRUP 20 GM/30 ML UDC PO ONE (10:45)
[2020-10-14] MEDS ORDERED: FOLIC ACID 1 MG in SYRINGE 9.8 ML IV ONE (11:00)
[2020-10-14] MEDS: THIAMINE HCL 200 MG in SODIUM CHLORIDE 0.9% 50 ML IV SCH ×2 (11:01→23:34)
[2020-10-14] MEDS: VANCOMYCIN HCL 1,000 MG in SODIUM CHLORIDE 0.9% 250 ML IV SCH ×2 (13:36→21:37)
[2020-10-14] MEDS: INSULIN GLARGINE SOLOSTAR 100 UNITS/ML 3 ML PEN SC SCH (21:40)
--- NOTE | 2020-10-15 00:21 | Hospitalist Progress Note ---
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 chronic gout or other erosive arthropathy? Charcot foot?? (8) Hepatic encephalopathy: (9) History of esophageal varices: (10) Alcoholic cirrhosis: (11) Depression: Plan: 1. increase lantus 2. increase novolog 3. if still hyperglycemic then d/c sc shots; change to insulin drip protocol 4. cont broad-spectrum IV abx; look for other sources of infection beyond UTI 5. check anaplasmosis smear and lyme 6. MRI right foot - r/o osteo, other 7. allow clear liquids as tolerated 8. cont IV fluids 9. high-dose thiamine in the event some of her altered MS is Wernicke's 10. follow blood and urine cx's 11. told that polyuria/polydipsia/etc is due to uncontrolled DM 12. consider Rx of depression/crying spells very complicated case told there are numerous issues going on which will take time to all sort out time - 40 min Admission and Anticipated Discharge Date Admission Date: October 14, 2020 Subjective Patient confused during the visit. Unable to give any accurate history. was at bedside who provided most of the information. they recently moved to [facility] from [place] several months ago. they are building a house here. patient stated "it was our dream to move here." while discussing the above the patient cried for the first several minutes of the visit. states she has been having copious crying spells - patient can't say why. patient, when asked what is wrong, can't verbalize what is bothering her. states they have been trying to secure new physicians in [place] to no avail. reports the following - 1. patient had what sounds like bacteremia with a spinal abscess last year; was in ICU in [facility] 2. patient had been drinking daily until of this year; prior to that drank copious beer, wine and liquor 3. has had esophageal varices w/ banding 4. had COVID in spring 2019 5. has been diabetic for 5+ years; on insulin at home 6. severe polyuria, polydipsia, thirst at home for weeks or longer 7. had "good week" last week, then over the weekend became altered 8. chronic right foot pain x 1 year ; pain in mid-foot; "no one can tell us what's wrong" Review of Systems Review of Systems: Unobtainable due to cognitive status Physical Exam Physical Exam: gen - altered, crying, no distress mouth - severely dry MM neck - no JVD heart - tachy, s1 s2, no murmur lungs - CTA b/l abd - soft, NT, ND, splenomegaly, BS+ ext - right foot mildly swollen, mildly tender mid-foot to palpation; left foot wnl vascular - pulses 2+ b/l neuro - no asterixis skin - no rash, no ulcers Results & Data Results & Data ([facility]) Vital Signs (Past 12 Hours) Vital Signs Temp Pulse Pulse Resp BP Pulse Ox 10/14/20 23:54 115 H 10/14/20 22:58 39.2 C H 118 H 20 120/64 90 10/14/20 19:26 36.6 C 104 H 20 94/52 L 91 10/14/20 14:59 38.4 C H 109 H 17 110/66 91 Laboratory Results Laboratory Results - last 24 hr 10/13/20 10/14/20 10/14/20 22:09 00:41 00:45 Creatinine Est Cr Clr Drug Dosing Est GFR ( Amer) Est GFR (Non-Af Amer) POC Glucose 297 H Estimat Average Glucose Hemoglobin A1c Lactate 2.3 H* Phosphorus 2.4 L Hepatitis C Ab Screen 10/14/20 10/14/20 10/14/20 01:48 05:40 05:41 Creatinine Est Cr Clr Drug Dosing Est GFR ( Amer) Est GFR (Non-Af Amer) POC Glucose 292 H 229 H Estimat Average Glucose 424 Hemoglobin A1c 16.4 H Lactate Phosphorus Hepatitis C Ab Screen 10/14/20 10/14/20 10/14/20 05:41 05:41 07:06 Creatinine 0.62 Est Cr Clr Drug Dosing 94.8 Est GFR ( Amer) 116.8 Est GFR (Non-Af Amer) 100.8 POC Glucose 260 H Estimat Average Glucose Hemoglobin A1c Lactate Phosphorus Hepatitis C Ab Screen Neg 10/14/20 10/14/20 10/14/20 11:18 16:04 21:30 Creatinine Est Cr Clr Drug Dosing Est GFR ( Amer) Est GFR (Non-Af Amer) POC Glucose 206 H 382 H* 248 H Estimat Average Glucose Hemoglobin A1c Lactate Phosphorus Hepatitis C Ab Screen PG Care Time/CCT Total # of Minutes Spent Total Time Spent with Patient: Total time spent is greater than 50% in coordination of care (as documented) at patient's floor/unit and/or counseling patient: Coding Level of Care Code 83349 Subseq Hosp Care Lvl 3 Diagnoses Encephalopathy acute G93.40 History of alcohol abuse F10.11 Hypomagnesemia E83.42 Diabetes mellitus E11.9 UTI (urinary tract infection) N39.0 Sepsis A41.9 Abnormal x-ray R93.89 Hepatic encephalopathy K72.90 History of esophageal varices Z87.19 Alcoholic cirrhosis K70.30 Depression F32.9
[2020-10-15] MEDS: NSS + 20MEQ KCL 20 MEQ/1,000 ML BAG IV SCH ×2 (03:15→07:32)
[2020-10-15] MEDS: PIPERACILLIN/TAZOBACTAM 3.375 GM in DEXTROSE 5% 100 ML IV SCH ×3 (03:15→20:37)
[2020-10-15] MEDS: VANCOMYCIN HCL 1,000 MG in SODIUM CHLORIDE 0.9% 250 ML IV SCH ×2 (03:16→12:21)
[2020-10-15] MEDS: ENOXAPARIN INJ 40 MG/0.4 ML SYR SQ SCH (05:37)
[2020-10-15] MEDS: ACETAMINOPHEN 325 MG TAB PO PRN (05:37)
[2020-10-15 07:34] LABS: Basophils # (auto) 0.02 K/uL (0-0.2); Basophils % (auto) 0.2 %; Eosinophils # (auto) 0.15 K/uL (0-0.5); Eosinophils % (auto) 1.8 %; Hematocrit (blood only) 30.1 % (37-47); Hemoglobin 9.5 g/dL (12.0-16.0); Immature Granulocytes # (auto) 0.01 K/uL (0.00-0.02); Immature Granulocytes % (auto) 0.1 %; Lymphocytes # (auto) 1.55 K/uL (1.2-3.4); Lymphocytes % (auto) 18.9 %; Mean Corpuscular Hemoglobin 24.2 pg (25-34); Mean Corpuscular Hgb Conc 31.6 g/dL (32-36); Mean Corpuscular Volume 76.8 fL (80-100); Mean Platelet Volume 9.7 fL (7.4-10.4); Monocytes # (auto) 0.83 K/uL (0.11-0.59); Monocytes % (auto) 10.1 %; Neutrophils # (auto) 5.62 K/uL (1.4-6.5); Neutrophils % (auto) 68.9 %; Platelet Count 186 K/uL (130-400); RDW Coefficient of Variation 16.9 % (11.5-14.5); RDW Standard Deviation 47.7 fL (36.4-46.3); Red Blood Count 3.92 M/uL (4.2-5.4); White Blood Count 8.18 K/uL (4.8-10.8)
[2020-10-15 08:10] LABS: Magnesium 1.8 mg/dl (1.8-2.4); Phosphorus 1.9 mg/dl (2.5-4.9)
[2020-10-15 08:18] LABS: Procalcitonin 0.19 ng/ml (0-0.5)
[2020-10-15 08:27] LABS: Lyme Ab IgG w/WB Rflx Negative (Negative); Lyme Ab IgM w/WB Rflx Negative (Negative)
[2020-10-15] MEDS: INSULIN ASPART 100 UNITS/ML 3 ML PEN SC SCH ×4 (08:33→21:08)
[2020-10-15] MEDS: FOLIC ACID 1 MG in SYRINGE 9.8 ML IV SCH (08:34)
[2020-10-15] MEDS: INSULIN GLARGINE SOLOSTAR 100 UNITS/ML 3 ML PEN SC SCH ×2 (08:34→21:09)
[2020-10-15] MEDS: THIAMINE HCL 200 MG in SODIUM CHLORIDE 0.9% 50 ML IV SCH ×2 (08:36→20:37)
[2020-10-15 09:05] LABS: Base Excess ABG -2.6 mEq/L (-9-1.8); HCO3 ABG 20 mmol/L (19-24); Oxygen Saturation ABG 89.6 % (90-95); PCO2 ABG 30 mmHg (35-46); PO2 ABG 57 mmHg (80-95); pH ABG 7.46 (7.35-7.45)
[2020-10-15 09:08] LABS: Allen Test POS (Pos)
--- NOTE | 2020-10-15 09:09 | XRay Report ---
XR chest 1V portable CLINICAL HISTORY: hypoxia COMPARISON STUDY: October 13, 2020 FINDINGS: No pneumothorax. No pleural effusion. Redemonstration of mild prominence of the minor fissure on the right. Also linea r density is seen on the left which might represent minimal amount of fluid within accessory fissure small linear atelectasis. Diffuse reticular prominence of pulmonary interstitium is slightly worsened since prior as well as bi lateral perihilar hazy opacities associated with few air bronchograms at the right infrahilar region. Cardiomediastinal silhouette is within normal limits in size. Pulmonary vasculature is indistinct.. Osseous structures: unremarkable IMPRESSION: 1. Interval worsening of perihilar opacities. Indistinct pulmonary vasculature and diffuse prominenc e of pulmonary interstitium likely represent pulmonary edema. Right infrahilar opacity with air bronc hograms could also represent atelectasis or infiltrate. ACT 112: Negative or not required by law. The above report was generated using voice recognition software. It may contain grammatical, syntax o r spelling errors. Electronically signed by: Yessenia Angel DO 10/15/2020 9:08 AM
--- NOTE | 2020-10-15 09:40 | Magnetic Resonance Report ---
HISTORY: TECHNIQUE: MRI of the entire pain and swelling of the right foot. No open wounds. History of diabetes . foot was performed. Multiplanar multisequence imaging was performed using standard departmental pro tocol. FINDINGS: Limited exam due to motion artifact. Hallux: Osseous: Small subcortical cyst is seen within medial distal aspect of the first metatarsal bone (7/2 6). Osteophytes of the distal aspect of the first metatarsal bone is seen. No definite evidence of fr acture or dislocation. Extensor tendon: Normal. Flexor tendon: Normal. First metatarsophalangeal joint: Degenerative changes with osteophytes.. Hallux-sesamoid complex: Normal. Second ray: Osseous: Linear area of decreased signal at the midportion of the second metatarsal bone. Bone marro w edema within proximal aspect of the second metatarsal. Extensor tendon: Normal. Flexor tendon: Normal. Second metatarsophalangeal joint: Normal. Plantar plate: Normal. Third ray: Osseous: Normal appearance of the third digit. Bone marrow edema involving proximal and midportion of the third metatarsal bone. Curvilinear area of decreased signal within midportion of the third metat arsal bone. Extensor tendon: Normal. Flexor tendon: Normal. Third metatarsophalangeal joint: Normal. Plantar plate: Normal. Fourth ray: Osseous: Normal appearance of the fourth digit. Bone marrow edema is seen within proximal and midport ion of the fourth metatarsal bone. Extensor tendon: Normal. Flexor tendon: Normal. Fourth metatarsophalangeal joint: Normal. Plantar plate: Normal. Fifth ray: Osseous: Normal appearance of the fifth digit. Bone marrow edema involving distal aspect of the diffu se metatarsal bone. Extensor tendon: Normal. Flexor tendon: Normal. Fifth metatarsophalangeal joint: Normal. Plantar plate: Is not well seen. Interspaces: Interdigital ([place]) neuroma: None. There is diffuse soft tissue edema surrounding second-fifth metatarsal bones which is also associated with heterogeneous bone marrow signal and subluxation of the tarsal bones. Heterogeneous appearance of the tarsometatarsal region could be due to motion artifact and severe degenerative changes that we re also seen on recent radiograph of the right foot and might represent neuropathic joint. Soft tissues: Subcutaneous soft tissue edema is seen. Muscles: Normal. Limited exam due to motion artifact. IMPRESSION: 1. Diffuse soft tissue edema associated with bone marrow edema at the metatarsal region involving sec ond-fifth metatarsal bones and tarsometatarsal region might represent neuropathic joint however infla mmatory process/osteomyelitis is also possible. 2. Linear/curvilinear areas of decreased signal within second and third metatarsal bones might repres ent avascular necrosis. Fracture deformity is less likely. 3. Degenerative changes of the first metatarsophalangeal joint and subchondral cysts. 4. Limited exam due to motion artifact. ACT 112: Negative or not required by law. Electronically signed by: Yessenia Angel DO 10/15/2020 9:39 AM
[2020-10-15 09:46] LABS: Albumin Globulin Ratio 0.5 (0.9-2); Albumin Level 2.1 gm/dl (3.4-5.0); BUN Creatinine Ratio 9.2 (10-20); Bilirubin,Total 1.7 mg/dl (0.2-1); Calcium 7.2 mg/dl (8.5-10.1); Creatinine Clr Calc Pharmacy 143.1 ml/min; Est GFR (African American) 129.8 ml/min; Globulin 4.4 gm/dl (2.5-4.0); Potassium 3.4 mmol/L (3.5-5.1); Total Protein 6.5 gm/dl (6.4-8.2)
[2020-10-15] MEDS ORDERED: FUROSEMIDE 20 MG in SYRINGE 0 ML IV ONE (10:00)
[2020-10-15] MEDS ORDERED: POTASSIUM CHLORIDE CRTAB 20 MEQ TABCR PO STA ×2 (10:03→19:50)
--- NOTE | 2020-10-15 10:09 | Hospitalist Progress Note ---
Date of Service October 15, 2020 Assessment & Plan (1) Staphylococcus aureus bacteremia: Plan: Presented with acute metabolic encephalopathy and fever initially with unknown source except for possible UTI. Now growing Staphylococcus species in blood cultures-this is the source of her fever No evidence of shock She does have a painful swollen right foot but is not erythematous and has been this way for over a year and may be a Charcot foot-MRI could be consistent with osteomyelitis and orthopedics consultation has been requested She does have a history of epidural abscess that required drainage, however she is not having any back pain or radiculopathy or lower extremity weakness suggestive of this No skin lesions anywhere CT of chest/abdomen/pelvis without source of infection, do not suspect pneumonia at this time but rather compressive atelectasis from pleural effusions and pulmonary edema-however, it is possible she could have a Staphylococcus pneumonia -Continue Zosyn and vancomycin -Infectious disease consultation requested -Check echocardiogram -Follow-up final blood cultures -Repeat blood cultures today Tylenol as needed for fevers DC IV fluids and given Lasix as below for hypoxia and pulmonary edema (2) Septicemia: Plan: As above We will make sure to follow-up on Anaplasma DNA PCR as this is pending, however do not suspect anaplasmosis at this time (3) Encephalopathy acute: Plan: Secondary to septicemia as above plus some component of hepatic encephalopathy Now much improved with treating with antibiotics as well as lactulose Continue IV thiamine in case of Warnicke's component Continue lactulose 30 g 3 times daily and started rifaximin as per GI -Continue with antibiotics as above (4) Epigastric pain: Plan: Does have a history of known varices which were seen on CT abdomen/pelvis today Has cholelithiasis and distended gallbladder but no abdominal tenderness or Cowart sign on examination Total bilirubin is mildly elevated but improved from previous and other LFTs are normal Do not suspect acute cholecystitis Will start Protonix 40 mg p.o. twice daily in case of gastritis (5) Acute respiratory failure with hypoxia: Plan: Pulse ox in the 70s on the morning of 10/15 requiring 5 L nasal cannula Chest CT angiogram performed was negative for PE but did show bilateral pleural effusions and compressive atelectasis and possible pneumonia Patient is volume overloaded after receiving IV fluids for fevers and sepsis -Give IV Lasix 20 mg IV twice daily today with potassium replacement Follow urine output Typically takes spironolactone 100 mg daily and Lasix 40 mg p.o. 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 chronic gout or other erosive arthropathy? Charcot foot?? MRI obtained in consultation with orthopedics appreciated (10) Hepatic encephalopathy: Plan: As above, now improved with lactulose Continue lactulose and add rifaximin (11) History of esophageal varices: Plan: Noted Starting Protonix Watch for bleeding Hemoglobin down slightly today but is likely hemodilution all Follow CBC No evidence of ongoing bleeding (12) Alcoholic cirrhosis: Plan: Has been sober since June 2020 but has a long history of cirrhosis Has not yet established with GI in this area Consult GI here Starting lactulose, rifaximin With portal hypertension-Will need beta-gm at some point after this infection is cleared up (13) Foot pain, right: Plan: As above, right foot MRI obtained for chronic swelling and pain in the right foot Could be Charcot foot versus infection versus destructive inflammatory arthritis Appreciate orthopedics consultation Plan to put in a walking cast of some sort (14) Hypokalemia: Plan: Replace with oral potassium chloride Follow BMP and magnesium in the morning (15) History of alcohol abuse: Plan: severe with resulting cirrhosis no etoh use for several months per unless she is using it secretly Continue thiamine and folate (16) Depression: Plan: No acute issues and on medications for this (17) DVT prophylaxis: Plan: Lovenox SQ Plan: Disposition-continued stay in PCU Admission and Anticipated Discharge Date Admission Date: October 14, 2020 Subjective Patient became hypoxic this morning and was started had a low-grade fever. She did not feel short of breath at all but was found to be in the 70s at rest on h er pulse ox by nursing. She also complained of a cough that started last night. She was placed on 5 L oxygen and came up to the low 90s. Her blood pressures were stable but she was mildly tachycardic. She complained of some epigastric fullness sensation but no abdominal pain. No nausea or vomiting, no diarrhea. No melena or hematemesis, no bright red blood per rectum. She denies any chest pain. She reports chronic pain in her right foot with swelling not worse than usual for the last year. She did not know she was having fevers or chills prior to admission but also does not really remember coming into the hospital. She overall seems much improved from the time she was admitted. She also was reporting that she was having trouble tasting and smelling and a repeat Covid test was performed which was negative. Her blood cultures turned positive today for gram-positive cocci in clusters that is Staphylococcus species Review of Systems Review of Systems: All systems reviewed & are unremarkable except as noted in HPI & below Denies back pain, no urinary symptoms, no lower extremity weaknes s or radicular pain Physical Exam Constitutional: WD/WN, vitals as above Eyes: PERRL, conjunctivae normal, anicteric sclerae ENMT: Mouth: + tongue abnormality (Tongue with dark brown color in the back) and + dry oral mucous membranes Neck: trachea midline, no thyromegaly Respiratory: normal respiratory effort, lungs clear to auscultation Cardiovascular: RRR, no murmur, no edema Chest (Breasts): Chest: normal inspection of chest Gastrointestinal (Abdomen): normal bowel sounds, soft, nontender, no hepatosplenomegaly Musculoskeletal: Extremities: + extremities abnormal to inspection (Right foot 1+ edema through ankle, no erythema, full range of motion), no cyanosis and no clubbing Skin: no rashes, warm and dry Neurologic: moves all extremities and awake; no focal motor deficits Psychiatric: A+Ox3, euthymic affect Lymphatic: no lymphedema Results & Data Results & Data ([facility]) Vital Signs (Past 12 Hours) Vital Signs Temp Pulse Pulse Resp BP BP Pulse Ox 10/15/20 07:16 110/58 L 91 10/15/20 07:04 37.3 C 107 H 16 110/58 L 75 L 10/15/20 05:37 37.9 C H 10/15/20 02:37 36.9 C 104 H 16 106/65 90 10/15/20 00:00 38.2 C H 10/14/20 23:54 115 H 10/14/20 22:58 39.2 C H 118 H 20 120/64 90 Laboratory Results 10/15/20 10/15/20 10/15/20 Range/Units Unknown 20:52 16:23 WBC (4.8-10.8) K/uL RBC (4.2-5.4) M/uL Hgb (12.0-16.0) g/dL Hct (37-47) % MCV (80-100) fL MCH (25-34) pg MCHC (32-36) g/dL RDW Std Deviation (36.4-46.3) fL RDW Coeff of Jeremie (11.5-14.5) % Plt Count (130-400) K/uL MPV (7.4-10.4) fL Immature Gran % (Auto) % Neut % (Auto) % Lymph % (Auto) % [place] % (Auto) % Eos % (Auto) % Baso % (Auto) % Neut # (Auto) (1.4-6.5) K/uL Lymph # (Auto) (1.2-3.4) K/uL [place] # (Auto) (0.11-0.59) K/uL Eos # (Auto) (0-0.5) K/uL Baso # (Auto) (0-0.2) K/uL Immature Gran # (Auto) (0.00-0.02) K/uL PT (9.0-12.0) Seconds INR (0.9-1.1) ABG pH ABG pCO2 ABG pO2 ABG HCO3 ABG O2 Saturation ABG Base Excess Sudarshan Test Barometric Pressure Oxygen Given Sodium (136-145) mmol/L Potassium (3.5-5.1) mmol/L Chloride (98-107) mmol/L Carbon Dioxide (21-32) mmol/L Anion Gap (3-11) BUN (7-18) mg/dl Creatinine (0.6-1.2) mg/dl Est Cr Clr Drug Dosing ml/min Est GFR ( Amer) ml/min Est GFR (Non-Af Amer) ml/min BUN/Creatinine Ratio (10-20) Glucose (70-99) mg/dl POC Glucose 192 H 212 H (70-99) mg/dl Calcium (8.5-10.1) mg/dl Phosphorus (2.5-4.9) mg/dl Magnesium (1.8-2.4) mg/dl Total Bilirubin (0.2-1) mg/dl AST (15-37) U/L ALT (12-78) U/L Alkaline Phosphatase (45-117) U/L Total Protein (6.4-8.2) gm/dl Albumin (3.4-5.0) gm/dl Globulin (2.5-4.0) gm/dl Albumin/Globulin Ratio (0.9-2) Procalcitonin (0-0.5) ng/ml Vancomycin Trough (See Comment) mcg/ml Anaplasma Smear Lyme Disease IgG Ab (Negative) Lyme Disease IgM Ab (Negative) SARS-CoV-2 (PCR) NEGATIVE (Negative) 10/15/20 10/15/20 10/15/20 Range/Units 11:26 11:26 11:22 WBC (4.8-10.8) K/uL RBC (4.2-5.4) M/uL Hgb (12.0-16.0) g/dL Hct (37-47) % MCV (80-100) fL MCH (25-34) pg MCHC (32-36) g/dL RDW Std Deviation (36.4-46.3) fL RDW Coeff of Jeremie (11.5-14.5) % Plt Count (130-400) K/uL MPV (7.4-10.4) fL Immature Gran % (Auto) % Neut % (Auto) % Lymph % (Auto) % [place] % (Auto) % Eos % (Auto) % Baso % (Auto) % Neut # (Auto) (1.4-6.5) K/uL Lymph # (Auto) (1.2-3.4) K/uL [place] # (Auto) (0.11-0.59) K/uL Eos # (Auto) (0-0.5) K/uL Baso # (Auto) (0-0.2) K/uL Immature Gran # (Auto) (0.00-0.02) K/uL PT 13.1 H (9.0-12.0) Seconds INR 1.3 H (0.9-1.1) ABG pH ABG pCO2 ABG pO2 ABG HCO3 ABG O2 Saturation ABG Base Excess Sudarshan Test Barometric Pressure Oxygen Given Sodium (136-145) mmol/L Potassium (3.5-5.1) mmol/L Chloride (98-107) mmol/L Carbon Dioxide (21-32) mmol/L Anion Gap (3-11) BUN (7-18) mg/dl Creatinine (0.6-1.2) mg/dl Est Cr Clr Drug Dosing ml/min Est GFR ( Amer) ml/min Est GFR (Non-Af Amer) ml/min BUN/Creatinine Ratio (10-20) Glucose (70-99) mg/dl POC Glucose 225 H (70-99) mg/dl Calcium (8.5-10.1) mg/dl Phosphorus (2.5-4.9) mg/dl Magnesium (1.8-2.4) mg/dl Total Bilirubin (0.2-1) mg/dl AST (15-37) U/L ALT (12-78) U/L Alkaline Phosphatase (45-117) U/L Total Protein (6.4-8.2) gm/dl Albumin (3.4-5.0) gm/dl Globulin (2.5-4.0) gm/dl Albumin/Globulin Ratio (0.9-2) Procalcitonin (0-0.5) ng/ml Vancomycin Trough 8.5 (See Comment) mcg/ml Anaplasma Smear Lyme Disease IgG Ab (Negative) Lyme Disease IgM Ab (Negative) SARS-CoV-2 (PCR) (Negative) 10/15/20 10/15/20 10/15/20 Range/Units 08:52 08:29 08:16 WBC (4.8-10.8) K/uL RBC (4.2-5.4) M/uL Hgb (12.0-16.0) g/dL Hct (37-47) % MCV (80-100) fL MCH (25-34) pg MCHC (32-36) g/dL RDW Std Deviation (36.4-46.3) fL RDW Coeff of Jeremie (11.5-14.5) % Plt Count (130-400) K/uL MPV (7.4-10.4) fL Immature Gran % (Auto) % Neut % (Auto) % Lymph % (Auto) % [place] % (Auto) % Eos % (Auto) % Baso % (Auto) % Neut # (Auto) (1.4-6.5) K/uL Lymph # (Auto) (1.2-3.4) K/uL [place] # (Auto) (0.11-0.59) K/uL Eos # (Auto) (0-0.5) K/uL Baso # (Auto) (0-0.2) K/uL Immature Gran # (Auto) (0.00-0.02) K/uL PT (9.0-12.0) Seconds INR (0.9-1.1) ABG pH 7.46 H Cancelled ABG pCO2 30 L Cancelled ABG pO2 57 L Cancelled ABG HCO3 20 Cancelled ABG O2 Saturation 89.6 L Cancelled ABG Base Excess -2.6 Cancelled Sudarshan Test POS Cancelled Barometric Pressure 731.7 Cancelled Oxygen Given ROOM AIR Cancelled Sodium 138 D (136-145) mmol/L Potassium 3.4 L (3.5-5.1) mmol/L Chloride 110 H (98-107) mmol/L Carbon Dioxide 21 (21-32) mmol/L Anion Gap 7.0 (3-11) BUN 4 L (7-18) mg/dl Creatinine 0.45 L (0.6-1.2) mg/dl Est Cr Clr Drug Dosing 143.1 ml/min Est GFR ( Amer) 129.8 ml/min Est GFR (Non-Af Amer) 112.0 ml/min BUN/Creatinine Ratio 9.2 L (10-20) Glucose 201 H (70-99) mg/dl POC Glucose (70-99) mg/dl Calcium 7.2 L D (8.5-10.1) mg/dl Phosphorus (2.5-4.9) mg/dl Magnesium (1.8-2.4) mg/dl Total Bilirubin 1.7 H (0.2-1) mg/dl AST 25 (15-37) U/L ALT 19 (12-78) U/L Alkaline Phosphatase 106 (45-117) U/L Total Protein 6.5 D (6.4-8.2) gm/dl Albumin 2.1 L (3.4-5.0) gm/dl Globulin 4.4 H (2.5-4.0) gm/dl Albumin/Globulin Ratio 0.5 L (0.9-2) Procalcitonin (0-0.5) ng/ml Vancomycin Trough (See Comment) mcg/ml Anaplasma Smear Lyme Disease IgG Ab (Negative) Lyme Disease IgM Ab (Negative) SARS-CoV-2 (PCR) (Negative) 10/15/20 10/15/20 10/15/20 Range/Units 07:20 07:02 07:02 WBC (4.8-10.8) K/uL RBC (4.2-5.4) M/uL Hgb (12.0-16.0) g/dL Hct (37-47) % MCV (80-100) fL MCH (25-34) pg MCHC (32-36) g/dL RDW Std Deviation (36.4-46.3) fL RDW Coeff of Jeremie (11.5-14.5) % Plt Count (130-400) K/uL MPV (7.4-10.4) fL Immature Gran % (Auto) % Neut % (Auto) % Lymph % (Auto) % [place] % (Auto) % Eos % (Auto) % Baso % (Auto) % Neut # (Auto) (1.4-6.5) K/uL Lymph # (Auto) (1.2-3.4) K/uL [place] # (Auto) (0.11-0.59) K/uL Eos # (Auto) (0-0.5) K/uL Baso # (Auto) (0-0.2) K/uL Immature Gran # (Auto) (0.00-0.02) K/uL PT (9.0-12.0) Seconds INR (0.9-1.1) ABG pH ABG pCO2 ABG pO2 ABG HCO3 ABG O2 Saturation ABG Base Excess Sudarshan Test Barometric Pressure Oxygen Given Sodium (136-145) mmol/L Potassium (3.5-5.1) mmol/L Chloride (98-107) mmol/L Carbon Dioxide (21-32) mmol/L Anion Gap (3-11) BUN (7-18) mg/dl Creatinine (0.6-1.2) mg/dl Est Cr Clr Drug Dosing ml/min Est GFR ( Amer) ml/min Est GFR (Non-Af Amer) ml/min BUN/Creatinine Ratio (10-20) Glucose (70-99) mg/dl POC Glucose 190 H (70-99) mg/dl Calcium (8.5-10.1) mg/dl Phosphorus (2.5-4.9) mg/dl Magnesium (1.8-2.4) mg/dl Total Bilirubin (0.2-1) mg/dl AST (15-37) U/L ALT (12-78) U/L Alkaline Phosphatase (45-117) U/L Total Protein (6.4-8.2) gm/dl Albumin (3.4-5.0) gm/dl Globulin (2.5-4.0) gm/dl Albumin/Globulin Ratio (0.9-2) Procalcitonin 0.19 (0-0.5) ng/ml Vancomycin Trough (See Comment) mcg/ml Anaplasma Smear See Comment Lyme Disease IgG Ab Negative (Negative) Lyme Disease IgM Ab Negative (Negative) SARS-CoV-2 (PCR) (Negative) 10/15/20 10/15/20 Range/Units 07:02 07:02 WBC 8.18 (4.8-10.8) K/uL RBC 3.92 L (4.2-5.4) M/uL Hgb 9.5 L (12.0-16.0) g/dL Hct 30.1 L (37-47) % MCV 76.8 L (80-100) fL MCH 24.2 L (25-34) pg MCHC 31.6 L (32-36) g/dL RDW Std Deviation 47.7 H (36.4-46.3) fL RDW Coeff of Jeremie 16.9 H (11.5-14.5) % Plt Count 186 (130-400) K/uL MPV 9.7 (7.4-10.4) fL Immature Gran % (Auto) 0.1 % Neut % (Auto) 68.9 % Lymph % (Auto) 18.9 % [place] % (Auto) 10.1 % Eos % (Auto) 1.8 % Baso % (Auto) 0.2 % Neut # (Auto) 5.62 (1.4-6.5) K/uL Lymph # (Auto) 1.55 (1.2-3.4) K/uL [place] # (Auto) 0.83 H (0.11-0.59) K/uL Eos # (Auto) 0.15 (0-0.5) K/uL Baso # (Auto) 0.02 (0-0.2) K/uL Immature Gran # (Auto) 0.01 (0.00-0.02) K/uL PT (9.0-12.0) Seconds INR (0.9-1.1) ABG pH ABG pCO2 ABG pO2 ABG HCO3 ABG O2 Saturation ABG Base Excess Sudarshan Test Barometric Pressure Oxygen Given Sodium (136-145) mmol/L Potassium (3.5-5.1) mmol/L Chloride (98-107) mmol/L Carbon Dioxide (21-32) mmol/L Anion Gap (3-11) BUN (7-18) mg/dl Creatinine (0.6-1.2) mg/dl Est Cr Clr Drug Dosing ml/min Est GFR ( Amer) ml/min Est GFR (Non-Af Amer) ml/min BUN/Creatinine Ratio (10-20) Glucose (70-99) mg/dl POC Glucose (70-99) mg/dl Calcium (8.5-10.1) mg/dl Phosphorus 1.9 L (2.5-4.9) mg/dl Magnesium 1.8 (1.8-2.4) mg/dl Total Bilirubin (0.2-1) mg/dl AST (15-37) U/L ALT (12-78) U/L Alkaline Phosphatase (45-117) U/L Total Protein (6.4-8.2) gm/dl Albumin (3.4-5.0) gm/dl Globulin (2.5-4.0) gm/dl Albumin/Globulin Ratio (0.9-2) Procalcitonin (0-0.5) ng/ml Vancomycin Trough (See Comment) mcg/ml Anaplasma Smear Lyme Disease IgG Ab (Negative) Lyme Disease IgM Ab (Negative) SARS-CoV-2 (PCR) (Negative) Diagnostic Findings Foot MRI 07/28/21 16:04 HISTORY: TECHNIQUE: MRI of the entire pain and swelling of the right foot. No open wounds. History of diabetes. foot was performed. Multiplanar multisequence imaging was performed using standard departmental protocol. FINDINGS: Limited exam due to motion artifact. Hallux: Osseous: Small subcortical cyst is seen within medial distal aspect of the first metatarsal bone (10/12). Osteophytes of the distal aspect of the first metatarsal bone is seen. No definite evidence of fracture or dislocation. Extensor tendon: Normal. Flexor tendon: Normal. First metatarsophalangeal joint: Degenerative changes with osteophytes.. Hallux-sesamoid complex: Normal. Second ray: Osseous: Linear area of decreased signal at the midportion of the second metatarsal bone. Bone marrow edema within proximal aspect of the second metatarsal. Extensor tendon: Normal. Flexor tendon: Normal. Second metatarsophalangeal joint: Normal. Plantar plate: Normal. Third ray: Osseous: Normal appearance of the third digit. Bone marrow edema involving proximal and midportion of the third metatarsal bone. Curvilinear area of decreased signal within midportion of the third metatarsal bone. Extensor tendon: Normal. Flexor tendon: Normal. Third metatarsophalangeal joint: Normal. Plantar plate: Normal. Fourth ray: Osseous: Normal appearance of the fourth digit. Bone marrow edema is seen within proximal and midportion of the fourth metatarsal bone. Extensor tendon: Normal. Flexor tendon: Normal. Fourth metatarsophalangeal joint: Normal. Plantar plate: Normal. Fifth ray: Osseous: Normal appearance of the fifth digit. Bone marrow edema involving distal aspect of the diffuse metatarsal bone. Extensor tendon: Normal. Flexor tendon: Normal. Fifth metatarsophalangeal joint: Normal. Plantar plate: Is not well seen. Interspaces: Interdigital ([place]) neuroma: None. There is diffuse soft tissue edema surrounding second-fifth metatarsal bones which is also associated with heterogeneous bone marrow signal and subluxation of the tarsal bones. Heterogeneous appearance of the tarsometatarsal region could be due to motion artifact and severe degenerative changes that were also seen on recent radiograph of the right foot and might represent neuropathic joint. Soft tissues: Subcutaneous soft tissue edema is seen. Muscles: Normal. Limited exam due to motion artifact. IMPRESSION: 1. Diffuse soft tissue edema associated with bone marrow edema at the metatarsal region involving second-fifth metatarsal bones and tarsometatarsal region might represent neuropathic joint however inflammatory process/osteomyelitis is also possible. 2. Linear/curvilinear areas of decreased signal within second and third metatarsal bones might represent avascular necrosis. Fracture deformity is less likely. 3. Degenerative changes of the first metatarsophalangeal joint and subchondral cysts. 4. Limited exam due to motion artifact. ACT 112: Negative or not required by law. Electronically signed by: Yessenia Angel DO 10/15/2020 9:39 AM Chest X-Ray 10/15/20 08:02 XR chest 1V portable CLINICAL HISTORY: hypoxia COMPARISON STUDY: October 13, 2020 FINDINGS: No pneumothorax. No pleural effusion. Redemonstration of mild prominence of the minor fissure on the right. Also linear density is seen on the left which might represent minimal amount of fluid within accessory fissure small linear atelectasis. Diffuse reticular prominence of pulmonary interstitium is slightly worsened since prior as well as bilateral perihilar hazy opacities associated with few air bronchograms at the right infrahilar region. Cardiomediastinal silhouette is within normal limits in size. Pulmonary vasculature is indistinct.. Osseous structures: unremarkable IMPRESSION: 1. Interval worsening of perihilar opacities. Indistinct pulmonary vasculature and diffuse prominence of pulmonary interstitium likely represent pulmonary edema. Right infrahilar opacity with air bronchograms could also represent atelectasis or infiltrate. ACT 112: Negative or not required by law. The above report was generated using voice recognition software. It may contain grammatical, syntax or spelling errors. Electronically signed by: Yessenia Angel DO 10/15/2020 9:08 AM Abdomen/Pelvis CT 10/15/20 09:55 CT abd pelvis IV con only CLINICAL HISTORY: upper abd pain,cirrhosis with varices COMPARISON STUDY: None. TECHNIQUE: A dose lowering technique was utilized adhering to the principles of ALARA. CT DOSE: FINDINGS: Lower chest: Limited evaluation of lung bases shows small bilateral pleural effusion and infiltrative opacities at dependent portions of bilateral lower lobes. There is also diffuse septal thickening within bilateral lung bases and normal-sized cardiac silhouette.. Liver: Cirrhotic morphology without definite focal lesions or intrahepatic biliary dilatation. Heterogeneous enhancement is seen at the peripheral aspect of the right lobe of the liver. Gastric and esophageal varices are seen. Also subcutaneous collaterals are seen within anterior abdominal wall. Gallbladder: Dilated with enhancement of its wall which is nondilated. Calcified gallstones are seen within dependent portion of the gallbladder. Spleen: Is enlarged, measures 15 cm in size. Evaluation of upper abdomen is limited due to beam hardening artifact from metallic density at the region of splenic hilum. Pancreas: Unremarkable. Adrenal glands: Unremarkable. Kidneys: There is minimal prominence of bilateral collecting system without evidence of nephrolithiasis or obstructive lesions.Focal area of decreased cortical enhancement within left kidney (6/195) might represent pyelonephritis. 1.3 cm hypoattenuating lesion within right renal parenchyma most likely represent cyst. There is also possible complex hypoattenuating lesion is seen within superior aspect of the right kidney with mild septation which might represent complex cyst, it measures 2.0 cm on series 6 image 140. Pelvic viscera: Urinary bladder is adequately filled with urine and show mild diffuse thickening of its wall. Normal appearance of the uterus. Ascites. Bowel: Bowel loops are nondilated. Mild diffuse mucosal enhancement is seen within fluid-filled loops of distal small bowel. Appendix is not well seen. Loops of distal colon are fluid-filled which could be seen in diarrheal state. Peritoneum: There is no free intra-abdominal gas. Moderate ascites is seen. Vasculature: The abdominal aorta is normal in course and caliber. Adenopathy: Few slightly prominent retroperitoneal lymph nodes no definite mesenteric lymphadenopathy seen however evaluation is limited due to diffuse mesenteric edema. Skeletal structures: Minimal degenerative changes of the spine. IMPRESSION: 1. Small bilateral pleural effusion associated with consolidative opacities within bilateral lower lobes which might represent pneumonia. 2. Mild pulmonary edema which could be due to edematous state. 3. Liver cirrhosis, splenomegaly and ascites. Varices and subcutaneous collaterals at the anterior abdominal wall. Limited evaluation of upper abdomen due to prominent beam hardening artifact from metallic densities at the region o f splenic hilum which could represent post treatment changes of the splenorenal shunt versus other etiology. 4. Dilated gallbladder with luminal gallstones. Above-mentioned findings might be seen in cholecystitis however evaluation for pericholecystic edema is limited due to ascites. Please correlate above-mentioned findings with right upper quadrant tenderness. 5. Questionable decreased opacification of the left renal cortex which might represent pyelonephritis. Please correlate above-mentioned findings with laboratory data inflammatory markers . Findings will be sent to patient's unit. ACT 112: Negative or not required by law. The above report was generated using voice recognition software. It may contain grammatical, syntax or spelling errors. Electronically signed by: Yessenia Angel DO 10/15/2020 12:45 PM Chest CTA 10/15/20 09:58 CT angio chest PE protocol CT DOSE: 1263.64 mGycm HISTORY: 55 years-old Female with PE. Acute shortness of breath with hypoxia TECHNIQUE: Multiple CTA images of the chest were obtained after the intravenous administration of 119 ml Optiray. Coronal and sagittal MIPS were obtained from the axial data set and were submitted for review. All measurements were obtained according to NASCET criteria. A dose lowering technique was utilized adhering to the principles of ALARA. COMPARISON: CT abdomen and pelvis of same day, chest radiograph 10/13/2020 FINDINGS: CTA: Mild cardiomegaly. Mild to moderate coronary artery calcifications. No pericardial effusion. No thoracic aortic aneurysm or dissection. Patency of the imaged great vessels. Satisfactory opacification of the pulmonary arterial tree. No pulmonary emboli identified. CT CHEST: Unremarkable thyroid. Mildly prominent mediastinal and hilar lymph nodes measure up to 8-9 mm. Small layering pleural effusions with dependent bibasilar compressive atelectasis. Pulmonary edema with patchy bilateral consolidative opacities within a multilobar distribution. Thickening of the bronchovascular bundles. Central airways are patent. Vascular coils of the abdominal left upper quadrant. Cirrhosis with upper abdominal ascites, varices and splenomegaly. Wall thickening of the distal esophagus with periesophageal edema. Mild generalized body wall edema. No acute fracture or suspicious bone lesion. Degenerative changes of the shoulders and spine. IMPRESSION: 1. Cardiomegaly with small layering pleural effusions, interstitial pulmonary edema and compressive bibasilar atelectasis. 2. Additional patchy bilateral groundglass and consolidative opacities are suggestive of alveolar pulmonary edema versus superimposed pneumonia. 3. Cirrhosis with stigmata of portal venous hypertension. 4. No pulmonary emboli. ACT 112: Negative or not required by law. The above report was generated using voice recognition software. It may contain grammatical, syntax or spelling errors. Electronically signed by: Britton Rico M.D. 10/15/2020 12:17 PM Liver Ultrasound 10/15/20 14:30 US liver CLINICAL HISTORY: Cirrhosis COMPARISON STUDY: CT of the abdomen and pelvis October 15, 2020. FINDINGS: The liver is cirrhotic. No hepatic lesions are identified by sonography. There is mild dilatation of the common bile duct, measuring 7 mm. The gallbladder is distended. There are gallstones within the gallbladder. There is no significant gallbladder wall thickening. Pericholecystic fluid is noted however this is nonspecific in the setting of cirrhosis with ascites. The pancreas is partially obscured but visualized portions are normal. There is no right hydronephrosis. IMPRESSION: 1. Cirrhosis. 2. Cholelithiasis with mild gallbladder distention. No sonographic Cowart sign. These findings do not strongly suggest acute cholecystitis however if right upper quadrant pain, a hepatobiliary scan could be obtained. 3. Small amount of ascites. 4. Borderline dilatation of the common bile duct. ACT 112: Negative or not required by law. Electronically signed by: Milton Mcintosh M.D. 10/15/2020 3:55 PM PG Care Time/CCT Total # of Minutes Spent Total Time Spent with Patient: Total time spent is greater than 50% in coordination of care (as documented) at patient's floor/unit and/or counseling patient: Coding Level of Care Code 78178 Subseq Hosp Care Lvl 3 Diagnoses Encephalopathy acute G93.40 History of alcohol abuse F10.11 Hypomagnesemia E83.42 Diabetes mellitus E11.9 UTI (urinary tract infection) N39.0 Abnormal x-ray R93.89 Hepatic encephalopathy K72.90 History of esophageal varices Z87.19 Alcoholic cirrhosis K70.30 Depression F32.9 Staphylococcus aureus bacteremia R78.81; B95.61 Acute respiratory failure with hypoxia J96.01 Septicemia A41.9 Foot pain, right M79.671 Hypokalemia E87.6 DVT prophylaxis Z29.9 Epigastric pain R10.13
[2020-10-15] MEDS ORDERED: POTASSIUM PHOS 3 MMOL/1 ML INFUSION IV STA (10:14)
[2020-10-15] MEDS ORDERED: MAGNESIUM SULFATE / D5W 1 GM/100 ML BAG IV ONE (10:14)
--- NOTE | 2020-10-15 10:58 | Gastrointestinal Consultation ---
Date of Consultation October 15, 2020 Assessment & Plan (1) Alcoholic cirrhosis: -Can update liver ultrasound while inpatient and obtain an INR to calculate MELD score, but the majority of management will be outpatient coordination of care. Will need to obtain records to determine previous work-up, last EGD, accurate med list, etc. She notes that she was on Spironolactone 100 mg daily & Lasix 40 mg daily. Will defer to hospitalists when these can safely be resumed given her overall picture with bacteremia and lower pressures since inpatient. (2) History of esophageal varices: -Obtain results of last EGD and previous GI notes. Patient is not actively bleeding and with bacteremia, possible osteomyelitis, & pulmonary edema she is not a candidate for endoscopy at present. (3) Hepatic encephalopathy: -Add Xifaxan 550 mg BID -Lactulose 30 gm TID. Titrate to 3-4 bowel movements daily Patient will need to establish with us as an outpatient for chronic management. No acute GI intervention is indicated at this time. Supervising Physician Co-Signing Physician Notes Agree with IGNACIO Sharp as above Abd: Soft, NT, ND, +BS, +HSM Continue current therapy and supportive care Will need workup as outpatient following treatment of acute medical issues Will need EGD as outpatient Our office will obtain records from prior GI team in [place], [place] She is unsure at present if she would like to have Liver Transplant Evaluation History of Present Illness Reason for Consultation: Cirrhosis, anemia, hepatic encephalopathy Attending Physician: Yanet Duarte MD History of Present Illness Patient is a 55 yo female with a PMH of poorly controlled diabetes and alcoholic cirrhosis with esophageal varices who is hospitalized with encephalopathy and staph bacteremia. Her hemoglobin A1C is greater than 15. Patient reportedly recently moved here from [place], [place]. Apparently she has been sober for 3 months. She currently is encephalopathic and there is concern for Wernicke's vs hepatic encephalopathy vs infectious etiology given bacteremia. Patient is not having any overt GI bleeding. Her Hemoglobin did drop from approximately 11 to 9, however a chest xray from this morning shows pulmonary edema that has developed since admission. There is concern for osteomyelitis of the R foot. She is currently tachycardic. She is on 5 L of oxygen at present. Patient was febrile this AM with a temp of 37.9. I do not have any prior GI records nor is there any liver imaging from this hospitalization.She believes she was previously on Lasix 40 mg daily, Aldactone 100 mg daily, & is unsure if she was ever on Xifaxan. She's unsure of the dates of her last GI work-up. She denies acute GI bleeding or other GI concerns at present. Allergies Allergy/AdvReac Type Severity Reaction Status Date / Time No Known Allergies Allergy Unverified 10/13/20 23:17 Home Medications Medication Instructions Recorded Confirmed Type insulin aspart U-100 100 unit/mL 1 sliding scale dose SUBCUT ACHS 10/13/20 10/13/20 History subcutaneous solution (Novolog U-100 Insulin aspart) Patient History Medical History (Updated 10/15/20 @ 16:41 by Osmar Tanner MD) Diabetes mellitus Epigastric pain History of alcohol abuse Hypokalemia Social History (Updated 10/15/20 @ 12:20 by Bernardino Pina PA-C) Smoking Status: Never smoker Hx Alcohol Use: Yes Hx Substance Use: No Preferred Language: Maldivian Communication Ability: Effective Knotter Required: No Beliefs That Will Affect Care: None marital status: Current Living Situation: Spouse Current Living Situation Comment: lives at home with How many Children do You have: 3 Feels Safe at Home: Yes Safety Concerns: Feels Safe At This Time Assistive Devices: None Review of Systems Constitutional: + fever and + chills Respiratory: + dyspnea Cardiovascular: no chest pain Gastrointestinal: no abdominal pain, no change in bowel habits, no constipation, no diarrhea/loose stools and no blood in stools Psychiatric: + substance abuse Physical Exam Constitutional: well developed and well nourished Respiratory: + abnormal respiratory effort Auscultation: + crackles Cardiovascular: Rate/Rhythm: + tachycardic Gastrointestinal (Abdomen): Inspection/Auscultation: abdomen normal to inspection and normal bowel sounds Percussion/Palpation: abdomen soft; abdomen nontender Psychiatric: A+Ox3, euthymic affect Results & Data ([facility]) Vital Signs (Past 12 Hours) Vital Signs Temp Pulse Pulse Resp BP BP Pulse Ox 10/15/20 07:16 110/58 L 91 10/15/20 07:04 37.3 C 107 H 16 110/58 L 75 L 10/15/20 05:37 37.9 C H 10/15/20 02:37 36.9 C 104 H 16 106/65 90 10/15/20 00:00 38.2 C H 10/14/20 23:54 115 H 10/14/20 22:58 39.2 C H 118 H 20 120/64 90 PG Care Time/CCT Total # of Minutes Spent Total Time Spent with Patient: Total time spent is greater than 50% in coordination of care (as documented) at patient's floor/unit and/or counseling patient: Coding Level of Care Code 30815 Office/OBS Consult Lvl 4 Diagnoses Alcoholic cirrhosis K70.30 History of esophageal varices Z87.19 Hepatic encephalopathy K72.90
[2020-10-15] MEDS ORDERED: POTASSIUM PHOSPHATE 15 MMOL in SODIUM CHLORIDE 0.9% 250 ML IV ONE (11:00)
[2020-10-15] MEDS ORDERED: VANCOMYCIN TROUGH ONE (11:30)
[2020-10-15] MEDS ORDERED: OPTIRAY 320 125ml IV ONE (11:44)
[2020-10-15 11:50] LABS: INR 1.3 (0.9-1.1); Prothrombin Time 13.1 Seconds (9.0-12.0)
--- NOTE | 2020-10-15 12:18 | CT Scan Report ---
CT angio chest PE protocol CT DOSE: 1263.64 mGycm HISTORY: 55 years-old Female with PE. Acute shortness of breath with hypoxia TECHNIQUE: Multiple CTA images of the chest were obtained after the intravenous administration of 119 ml Optiray. Coronal and sagittal MIPS were obtained from the axial data set and were submitted for review. All measurements were obtained according to NASCET criteria. A dose lowering technique was u tilized adhering to the principles of ALARA. COMPARISON: CT abdomen and pelvis of same day, chest radiograph 10/13/2020 FINDINGS: CTA: Mild cardiomegaly. Mild to moderate coronary artery calcifications. No pericardial effusion. No thora cic aortic aneurysm or dissection. Patency of the imaged great vessels. Satisfactory opacification of the pulmonary arterial tree. No pulmonary emboli identified. CT CHEST: Unremarkable thyroid. Mildly prominent mediastinal and hilar lymph nodes measure up to 8-9 mm. Small layering pleural effusions with dependent bibasilar compressive atelectasis. Pulmonary edema with pat georgi bilateral consolidative opacities within a multilobar distribution. Thickening of the bronchovasc ular bundles. Central airways are patent. Vascular coils of the abdominal left upper quadrant. Cirrhosis with upper abdominal ascites, varices and splenomegaly. Wall thickening of the distal esophagus with periesophageal edema. Mild generalized body wall edema. No acute fracture or suspicious bone lesion. Degenerative changes of the shoulders and spine. IMPRESSION: 1. Cardiomegaly with small layering pleural effusions, interstitial pulmonary edema and compressive b ibasilar atelectasis. 2. Additional patchy bilateral groundglass and consolidative opacities are suggestive of alveolar pul monary edema versus superimposed pneumonia. 3. Cirrhosis with stigmata of portal venous hypertension. 4. No pulmonary emboli. ACT 112: Negative or not required by law. The above report was generated using voice recognition software. It may contain grammatical, syntax o r spelling errors. Electronically signed by: Britton Rico M.D. 10/15/2020 12:17 PM
--- NOTE | 2020-10-15 12:22 | Orthopedic Consultation ---
Date of Consultation October 15, 2020 Assessment & Plan (1) History of alcohol abuse: Patient was seen in her room this morning. Films were reviewed. Foot was examined. Possibility of osteomyelitis was discussed with the patient. Symptoms have been ongoing for over a year. Possibility of Charcot disease was also discussed, given her poorly controlled diabetes. She will be seen by Dr. Tanner later today and further management will be discussed. Continue with her diabetes management and antibiotics at this time. (2) Epigastric pain: (3) Hypokalemia: History of Present Illness Reason for Consultation: Right foot pain Attending Physician: Yanet Duarte MD History of Present Illness This 55-year-old female presented through the ED, for evaluation of multiple complaints. Orthopedics was consulted for evaluation of her right foot and possible cellulitis versus osteomyelitis. Patient is seen in her room today. She states she has had right foot pain for over a year. Her only previous known injury was stepping on some glass a few years ago. She states she was seen in the ED in [place] and had films. She was told there was inflammation of the tissue, but no foreign body. She has had midfoot discomfort and swelling on a intermittent basis. She states over the last several days it has become worse. Yesterday she was unable to bear weight. She denies any numbness or tingling. No prior history of treatment. She denies any open wounds and denies any drainage. She states the foot occasionally becomes swollen. No symptoms in her ankle or knee. Patient states she and her just moved to the [place] area from [place]. She is looking to establish care. Allergies Allergy/AdvReac Type Severity Reaction Status Date / Time No Known Allergies Allergy Unverified 10/13/20 23:17 Home Medications Medication Instructions Recorded Confirmed Type insulin aspart U-100 100 unit/mL 1 sliding scale dose SUBCUT ACHS 10/13/20 10/13/20 History subcutaneous solution (Novolog U-100 Insulin aspart) Patient History Medical History (Updated 10/15/20 @ 12:20 by Bernardino Pina PA-C) Diabetes mellitus Epigastric pain History of alcohol abuse Hypokalemia Social History (Updated 10/15/20 @ 12:20 by Bernardino Pina PA-C) Smoking Status: Never smoker Hx Alcohol Use: Yes Hx Substance Use: No Preferred Language: Yoruba Communication Ability: Effective Nut Former Required: No Beliefs That Will Affect Care: None marital status: Current Living Situation: Spouse Current Living Situation Comment: lives at home with How many Children do You have: 3 Feels Safe at Home: Yes Safety Concerns: Feels Safe At This Time Assistive Devices: None Review of Systems Review of Systems: All systems reviewed & are unremarkable except as noted in HPI & below Physical Exam Physical Exam: General: Well-developed, well-nourished, thin middle-aged female, in no acute distress. Laying on the bed. Alert and oriented. Conversive. Skin: Warm and dry with good turgor. No rashes. No current erythema. No open wounds. Foot is slightly more warm than the distal leg. Mild edema present over the midfoot. No significant swelling in the forefoot. No intra-articular effusion at the ankle. Musculoskeletal: Patient has intact motor function of her ankle and toes. Strength is 5/5 for resisted dorsiflexion and plantarflexion of the foot. She has focal discomfort with palpation over the tarsometatarsal joint. This corresponds with her area of swelling. No pain with palpation over the forefoot, metatarsal heads, or toes. No discomfort with manual mobilization of the fifth ray or first ray. No pain with palpation over her ankle. Achilles tendon is palpated through its entirety and found to be intact and without defect. Normal Isbell test. Neurologic: Gross sensation is intact across the foot and ankle by soft touch. Peripheral pulses are both 2+. Results & Data ([facility]) Vital Signs (Past 12 Hours) Vital Signs Temp Pulse Resp BP BP Pulse Ox 10/15/20 11:55 36.8 C 96 H 19 114/72 95 10/15/20 07:16 110/58 L 91 10/15/20 07:04 37.3 C 107 H 16 110/58 L 75 L 10/15/20 05:37 37.9 C H 10/15/20 02:37 36.9 C 104 H 16 106/65 90 Laboratory Results CBC obtained this morning shows a white count of 8.18. Mildly low H&H at 9.5 and 30.1. Diagnostic Findings Radiographic imaging previously obtained of the foot was reviewed by me and read by radiology. Patient has significant erosive changes present in the midfoot at the tarsometatarsal joints. No evidence of fracture. Possibility of degenerative changes versus infectious etiology was considered. Subsequent MRI imaging of the foot was also obtained. This shows soft tissue edema as well as bone marrow edema in the metatarsal region involving the second through fifth metatarsal bones and tarsometatarsal region. This may represent neuropathic joint versus osteomyelitis. Possibility of avascular necrosis of the metatarsal bones is also considered. There is motion artifact.
--- NOTE | 2020-10-15 12:47 | CT Scan Report ---
CT abd pelvis IV con only CLINICAL HISTORY: upper abd pain,cirrhosis with varices COMPARISON STUDY: None. TECHNIQUE: A dose lowering technique was utilized adhering to the principles of ALARA. CT DOSE: FINDINGS: Lower chest: Limited evaluation of lung bases shows small bilateral pleural effusion and infiltrative opacities at dependent portions of bilateral lower lobes. There is also diffuse septal thickening wi thin bilateral lung bases and normal-sized cardiac silhouette.. Liver: Cirrhotic morphology without definite focal lesions or intrahepatic biliary dilatation. Hetero geneous enhancement is seen at the peripheral aspect of the right lobe of the liver. Gastric and esophageal varices are seen. Also subcutaneous collaterals are seen within anterior abdom inal wall. Gallbladder: Dilated with enhancement of its wall which is nondilated. Calcified gallstones are seen within dependent portion of the gallbladder. Spleen: Is enlarged, measures 15 cm in size. Evaluation of upper abdomen is limited due to beam harde tia artifact from metallic density at the region of splenic hilum. Pancreas: Unremarkable. Adrenal glands: Unremarkable. Kidneys: There is minimal prominence of bilateral collecting system without evidence of nephrolithias is or obstructive lesions.Focal area of decreased cortical enhancement within left kidney (6/195) aditi ht represent pyelonephritis. 1.3 cm hypoattenuating lesion within right renal parenchyma most likely represent cyst. There is also possible complex hypoattenuating lesion is seen within superior aspect of the right kidney with mild septation which might represent complex cyst, it measures 2.0 cm on ser ies 6 image 140. Pelvic viscera: Urinary bladder is adequately filled with urine and show mild diffuse thickening of i ts wall. Normal appearance of the uterus. Ascites. Bowel: Bowel loops are nondilated. Mild diffuse mucosal enhancement is seen within fluid-filled loops of distal small bowel. Appendix is not well seen. Loops of distal colon are fluid-filled which could be seen in diarrheal state. Peritoneum: There is no free intra-abdominal gas. Moderate ascites is seen. Vasculature: The abdominal aorta is normal in course and caliber. Adenopathy: Few slightly prominent retroperitoneal lymph nodes no definite mesenteric lymphadenopathy seen however evaluation is limited due to diffuse mesenteric edema. Skeletal structures: Minimal degenerative changes of the spine. IMPRESSION: 1. Small bilateral pleural effusion associated with consolidative opacities within bilateral lower l obes which might represent pneumonia. 2. Mild pulmonary edema which could be due to edematous state. 3. Liver cirrhosis, splenomegaly and ascites. Varices and subcutaneous collaterals at the anterior a bdominal wall. Limited evaluation of upper abdomen due to prominent beam hardening artifact from meta llic densities at the region of splenic hilum which could represent post treatment changes of the spl enorenal shunt versus other etiology. 4. Dilated gallbladder with luminal gallstones. Above-mentioned findings might be seen in cholecysti tis however evaluation for pericholecystic edema is limited due to ascites. Please correlate above-me ntioned findings with right upper quadrant tenderness. 5. Questionable decreased opacification of the left renal cortex which might represent pyelonephriti s. Please correlate above-mentioned findings with laboratory data inflammatory markers . Findings will be sent to patient's unit. ACT 112: Negative or not required by law. The above report was generated using voice recognition software. It may contain grammatical, syntax o r spelling errors. Electronically signed by: Yessenia Angel DO 10/15/2020 12:45 PM
[2020-10-15] MEDS: rifAXIMin 550 MG TABLET PO SCH ×2 (13:01→21:08)
--- NOTE | 2020-10-15 13:07 | Pharmacy Report ---
Pharmacy Vanc AUC Short Note - Date of Service October 15, 2020 - Assessment & Plan Assessment 55 year old F with very poorly controlled diabetes, receiving vancomycin and Zosyn for treatment of right lower extremity cellulitis/possible UTI. Pertinent microbiologic data includes: urine culture growing alpha strep, not Enterococcus. Blood culture growing Staphylococcus species. Patient continues to spike intermittent fevers, Tmax yesterday of 39.2 C. Day # 3 of antimicrobial therapy. Plan Vancomycin * AUC/JESSY is the preferred PK/PD target for vancomycin * AUC guided dosing is effective and associated with decreased risk of nephrotoxicity compared to traditional trough targets * Trough of 8.5 mcg/mL is likely inadequate - will give one-time 1500 mg dose now in light of low level * Trough level of 12 mcg/mL is predicted to achieve target AUC/JESSY of 400-600 m g/L.hr and may be associated with a 7 % risk of nephrotoxicity * Change to 1250 mg IV every 8 hours * Will follow culture and order follow-up trough if indicated Zosyn - continue current dose of 3.375 g IV q8h Pharmacy will continue to follow and will adjust dose/frequency as necessary. Thank you.
[2020-10-15] MEDS ORDERED: VANCOMYCIN HCL 500 MG in SODIUM CHLORIDE 0.9% 250 ML IV ONE (13:45)
[2020-10-15] MEDS: LACTULOSE SYRUP 30 GM/45 ML UDP PO SCH ×2 (15:34→21:07)
--- NOTE | 2020-10-15 15:56 | Ultrasound Report ---
US liver CLINICAL HISTORY: Cirrhosis COMPARISON STUDY: CT of the abdomen and pelvis October 15, 2020. FINDINGS: The liver is cirrhotic. No hepatic lesions are identified by sonography. There is mild dila tation of the common bile duct, measuring 7 mm. The gallbladder is distended. There are gallstones wi thin the gallbladder. There is no significant gallbladder wall thickening. Pericholecystic fluid is n oted however this is nonspecific in the setting of cirrhosis with ascites. The pancreas is partially obscured but visualized portions are normal. There is no right hydronephrosis. IMPRESSION: 1. Cirrhosis. 2. Cholelithiasis with mild gallbladder distention. No sonographic Cowart sign. These findings do not strongly suggest acute cholecystitis however if right upper quadrant pain, a hepatobiliary scan coul d be obtained. 3. Small amount of ascites. 4. Borderline dilatation of the common bile duct. ACT 112: Negative or not required by law. Electronically signed by: Milton Mcintosh M.D. 10/15/2020 3:55 PM
--- NOTE | 2020-10-15 16:17 | XCELERA ---
[id number]
--- NOTE | 2020-10-15 16:49 | Orthopedic Progress Note ---
Date of Service October 15, 2020 Assessment & Plan (1) History of alcohol abuse: (2) Staphylococcus aureus bacteremia: (3) Charcot arthropathy of midfoot: Plan: Findings discussed with patient and . Her history certainly is concerning. She had some type of puncture wound perhaps 2 decades ago. A year and a half ago she had a lot of foot pain and swelling. This was treated as an infection but it turned out that she had an abscess in her lower back the cause that problem. Does not recall ever seeing an orthopedic doctor. If they can obtain prior radiographs it would be helpful. The current films demonstrate destructive changes at the tarsometatarsal articulation with fragmentation of the tarsometatarsal joints 2 through 5. This could be related to neuropathic joint active infection or aftereffects of infection. Other problems such as gout or various forms of arthritis could cause similar problems. Given that her diabetes is not controlled and that she has alcoholism in addition to diabetes as risk factors I would favor the right foot problem be being related to neuropathic Charcot change and not to acute infection. Given the time course would expect abscess development drainage and other signs of fulminant infection. Currently the foot is warm, mildly swollen somewhat uncomfortable. Skin wrinkles are present there is no erythema. Recommend that she can weight- bear as tolerated. Consider use of an assistive device as necessary. If possible would like to get her put into an total contact cast. A [place] boot would be another option. We will continue to monitor her and she can follow-up with me as an outpatient. I do not see an indication for any invasive procedures biopsies or surgeries at the present time. Admission and Anticipated Discharge Date Admission Date: October 14, 2020 Subjective Hilary is 55. She has a history of diabetes and alcohol abuse. She has no known history of neuropathy. She does have alcoholic cirrhosis and other associated alcohol-related problems. 10 to 20 years ago she had a puncture wound of her foot. A year and a half ago she was admitted to the hospital at [facility]. She had swelling of the right foot it was thought to be infected. She did not have surgery on it and there was no biopsy or aspiration to our knowledge. This was treated apparently with intravenous antibiotics but eventually it was determined that she had an abscess in her back which was the cause of the infection. Once this was drained she got better. She has had some soreness and swelling of the foot going on since that time. Over the past week or so things got somewhat worse. She had an altered mental status the last couple days and was brought to the hospital by her . She feels a lot better now. She notes some discomfort in her foot which could be as high as a 5 out of 10. She has been doing a lot of walking recently. She is not had any drainage or operations on the right foot. Right now at rest her pain is minimal to absent in the right foot. She denies any other areas of discomfort. Review of Systems Review of Systems: Reviewed and noted. Physical Exam Physical Exam: Pedal pulses are 2+. Position sense and sensation to light touch is intact she has full movement of toes and ankle. Skin wrinkles are present. The foot is not erythematous distended shiny or tense. She does have some enlargement. There is mild tenderness to palpation and there is mild gross instability on manipulation of the forefoot/midfoot which is uncomfortable. The foot is plantigrade when she stands her arch is intact. There is no open wounds or sinus tracts her toes are not notably swollen. Results & Data ([facility]) Vital Signs (Past 12 Hours) Vital Signs Temp Pulse Resp BP BP Pulse Ox 10/15/20 11:55 36.8 C 96 H 19 114/72 95 10/15/20 07:16 110/58 L 91 10/15/20 07:04 37.3 C 107 H 16 110/58 L 75 L 10/15/20 05:37 37.9 C H Diagnostic Findings I reviewed her x-rays which show destructive changes in the midfoot tarsometatarsal joints 2 through 5. Some fragmentation is noted. The MRI is reviewed and it shows no evidence of abscess. There is some bone marrow edema and associated obstructive changes of the midfoot. Subcutaneous edema.
[2020-10-15] MEDS ORDERED: FUROSEMIDE 20 MG in SYRINGE 0 ML IV SCH (20:00)
[2020-10-15] MEDS: VANCOMYCIN HCL 1,250 MG in SODIUM CHLORIDE 0.9% 250 ML IV SCH (21:00)
[2020-10-16] MEDS: PANTOprazole 40 MG TAB PO SCH ×3 (00:33→21:41)
[2020-10-16] MEDS: PIPERACILLIN/TAZOBACTAM 3.375 GM in DEXTROSE 5% 100 ML IV SCH ×3 (04:05→20:01)
[2020-10-16] MEDS: VANCOMYCIN HCL 1,250 MG in SODIUM CHLORIDE 0.9% 250 ML IV SCH (05:27)
[2020-10-16] MEDS: ENOXAPARIN INJ 40 MG/0.4 ML SYR SQ SCH (05:28)
[2020-10-16 07:35] LABS: Basophils # (auto) 0.03 K/uL (0-0.2); Basophils % (auto) 0.4 %; Eosinophils # (auto) 0.29 K/uL (0-0.5); Hematocrit (blood only) 28.7 % (37-47); Hemoglobin 9.1 g/dL (12.0-16.0); Immature Granulocytes # (auto) 0.02 K/uL (0.00-0.02); Immature Granulocytes % (auto) 0.3 %; Lymphocytes # (auto) 2.03 K/uL (1.2-3.4); Lymphocytes % (auto) 28.1 %; Mean Corpuscular Hemoglobin 23.9 pg (25-34); Mean Corpuscular Hgb Conc 31.7 g/dL (32-36); Mean Corpuscular Volume 75.5 fL (80-100); Mean Platelet Volume 9.1 fL (7.4-10.4); Monocytes # (auto) 0.82 K/uL (0.11-0.59); Monocytes % (auto) 11.3 %; Neutrophils # (auto) 4.04 K/uL (1.4-6.5); Neutrophils % (auto) 55.9 %; Nucleated RBC # (auto) 0.06 K/uL (0-0); Nucleated RBC % (auto) 0.8 %; Platelet Count 195 K/uL (130-400); RDW Coefficient of Variation 16.8 % (11.5-14.5); RDW Standard Deviation 46.3 fL (36.4-46.3); White Blood Count 7.23 K/uL (4.8-10.8)
[2020-10-16 07:44] LABS: INR 1.3 (0.9-1.1); Prothrombin Time 13.1 Seconds (9.0-12.0)
[2020-10-16 08:24] LABS: Albumin Globulin Ratio 0.5 (0.9-2); BUN Creatinine Ratio 4.7 (10-20); Bilirubin,Total 1.5 mg/dl (0.2-1); Calcium 7.7 mg/dl (8.5-10.1); Creatinine Clr Calc Pharmacy 156.2 ml/min; Est GFR (African American) 133.9 ml/min; Est GFR (Non-African American) 115.5 ml/min; Globulin 4.2 gm/dl (2.5-4.0); Magnesium 1.4 mg/dl (1.8-2.4); Phosphorus 2.6 mg/dl (2.5-4.9); Potassium 2.4 mmol/L (3.5-5.1); Thyroid Stimulating Hormone 3.21 uIu/ml (0.300-4.500); Total Protein 6.2 gm/dl (6.4-8.2)
[2020-10-16] MEDS: FOLIC ACID 1 MG in SYRINGE 9.8 ML IV SCH (08:37)
[2020-10-16] MEDS: INSULIN GLARGINE SOLOSTAR 100 UNITS/ML 3 ML PEN SC SCH ×2 (08:38→21:41)
[2020-10-16] MEDS: INSULIN ASPART 100 UNITS/ML 3 ML PEN SC SCH ×4 (08:39→21:42)
[2020-10-16] MEDS: LACTULOSE SYRUP 30 GM/45 ML UDP PO SCH ×3 (08:40→21:41)
[2020-10-16] MEDS: rifAXIMin 550 MG TABLET PO SCH ×2 (08:40→21:41)
[2020-10-16] MEDS: THIAMINE HCL 200 MG in SODIUM CHLORIDE 0.9% 50 ML IV SCH ×2 (08:45→20:01)
[2020-10-16] MEDS ORDERED: POTASSIUM CHLORIDE CRTAB 20 MEQ TABCR PO STA ×2 (09:20→09:22)
[2020-10-16] MEDS: POTASSIUM CHLORIDE / WTR 10 MEQ/100 ML PLCT IV SCH ×6 (09:43→16:46)
[2020-10-16] MEDS: MAGNESIUM SULFATE / D5W 1 GM/100 ML BAG IV SCH ×3 (09:44→13:40)
[2020-10-16] MEDS ORDERED: FUROSEMIDE 20 MG in SYRINGE 0 ML IV ONE (09:45)
[2020-10-16 09:58] LABS: Ferritin 33.1 ng/ml (8-388)
[2020-10-16] MEDS: VANCOMYCIN HCL 1,500 MG in SODIUM CHLORIDE 0.9% 500 ML IV SCH ×2 (12:17→20:22)
--- NOTE | 2020-10-16 14:51 | Hospitalist Progress Note ---
Date of Service October 16, 2020 Assessment & Plan (1) Septicemia: Plan: Presented with acute metabolic encephalopathy and fever initially with unknown source except for possible UTI. Now growing Staphylococcus species in blood culture as well as gram-positive bacilli -this is the most likely source of her fever Urine culture growing alpha Streptococcus, not Enterococcus No evidence of shock, still with some low-grade fevers but overall much improved Repeat blood cultures-no growth to date She does have a painful swollen right foot but is not erythematous and has been this way for over a year and is deemed to be a Charcot foot-MRI could be consistent with osteomyelitis and orthopedics consultation is appreciated She does have a history of epidural abscess that required drainage, however she is not having any back pain or radiculopathy or lower extremity weakness suggestive of this No skin lesions anywhere CT of chest/abdomen/pelvis-does show changes in the kidneys possibly consistent with pyelonephritis and a complex cyst. No pneumonia but has compressive atelectasis due to pleural effusions. Does have cholelithiasis on imaging, but no evidence of cholecystitis clinically. Suspect acute pyelonephritis-it is not uncommon to continue to have low-grade fevers with treatment of pyelonephritis, however it is unusual that she is growing Staphylococcus species unless this has seeded in the kidneys from another source. Echocardiogram without valvular vegetation, and with LVEF 65-70%, trace pericardial effusion without tamponade physiology, mild mitral regurgitation -Continue Zosyn and vancomycin for broad-spectrum antibiotic coverage for Staphy lococcus species and gram-positive bacilli in the blood and alpha Streptococcus in the urine -Infectious disease consultation requested-pending -May need BRANDY -Follow-up final blood cultures ID and sensitivity -Repeat blood cultures-no growth to date Tylenol as needed for fevers -Follow-up Anaplasma DNA PCR when available although do not suspect she has this at this time -Consider repeat imaging of the kidneys if fevers persist (2) Encephalopathy acute: Plan: Secondary to septicemia as above plus some component of hepatic encephalopathy initially Now resolved with treating with antibiotics as well as lactulose Received IV thiamine in case of Wernicke's component and now will transition to thiamine 100 mg p.o. once daily Continue lactulose 30 g 3 times daily and started rifaximin as per GI with goal of 3 bowel movements daily -Continue with antibiotics as above (3) Acute respiratory failure with hypoxia: Plan: Pulse ox in the 70s on the morning of 10/15 requiring 5 L nasal cannula Chest CT angiogram performed was negative for PE but did show bilateral pleural effusions and compressive atelectasis and possible pneumonia Patient is volume overloaded after receiving IV fluids for fevers and sepsis. She also has not been taking her usual furosemide and spironolactone for the last month as she ran out of medication and her moved to this area Echocardiogram with preserved EF With significant hypoalbuminemia contributing to third spacing -Continue IV Lasix 20 mg IV daily today along with potassium replacement -Follow urine output-not accurate as she is having some urine output along with loose stools that has not been measured -Typically takes spironolactone 100 mg daily and Lasix 40 mg p.o. once daily- hold off on restarting at this time -Wean off oxygen as able to-weaned down to 2 L -Continue incentive spirometer -Follow BMP, magnesium (4) UTI (urinary tract infection): Plan: Urine culture with alpha Streptococcus, not Enterococcus Continue vancomycin, Zosyn as above With CT abdomen/pelvis with focal area of decreased cortical enhancement within left kidney possibly representing pyelonephritis as well as possible complex hypoattenuating lesion in the right kidney which may represent complex cyst Still with low-grade fevers but no urinary symptoms (5) Diabetes mellitus: Plan: severely uncontrolled a1c >15% 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 twice daily in case of gastritis Also diuresed and had bilateral pleural effusions Epigastric discomfort is now completely resolved (7) Abnormal x-ray: Plan: right foot Secondary to Charcot foot MRI obtained in consultation with orthopedics appreciated (8) Hepatic encephalopathy: Plan: As above, now improved with lactulose Continue lactulose and started rifaximin (9) History of esophageal varices: Plan: Noted Starting Protonix Watch for bleeding Hemoglobin down but stable at 9 Follow CBC No evidence of ongoing bleeding Should start beta-gm at some point for portal hypertension She does have a coil seen on CT abdomen/pelvis at the region of the splenic hilum which could represent posttreatment changes of a splenorenal shunt-patient does recall some sort of procedure a couple of years ago for this (10) Alcoholic cirrhosis: Plan: Has been sober since June 2020 but has a long history of cirrhosis Has not yet established with GI in this area Consult GI here [id number] as an outpatient and will obtain old records Started lactulose, rifaximin With portal hypertension-Will need beta-gm at some point after this infection is cleared up if blood pressure can tolerate (11) Foot pain, right: Plan: As above, right foot MRI obtained for chronic swelling and pain in the right foot Orthopedic surgeon agrees that this is a Charcot foot and not osteomyelitis Appreciate orthopedics consultation Placed in a cam walking boot for now, but needs total contact cast as an outpatient Follow-up with orthopedics after discharge (12) Hypomagnesemia: Plan: Replace with IV magnesium sulfate Follow magnesium level in the morning (13) Hypokalemia: Plan: Severely low secondary to loop diuretic use as well Replaced with IV and oral potassium chloride, replacing IV magnesium Follow BMP and magnesium in the morning (14) History of alcohol abuse: Plan: severe with resulting cirrhosis no etoh use for several months per unless she is using it secretly Continue thiamine and folate but convert to p.o. (15) Depression: Plan: No acute issues and on medications for this (16) Iron deficiency anemia: Plan: Hemoglobin 9.1, MCV low at 75 Iron studies consistent with iron deficiency anemia with transferrin saturation of 6% Hemoccult stool is negative Hold off on IV iron at this time due to bacteremia Could consider oral iron but this would turn her stool black-do not want to confuse the picture at this time Consider oral iron upon discharge (17) Charcot arthropathy of midfoot: Plan: As above Follow-up with orthopedic surgery (18) DVT prophylaxis: Plan: Lovenox SQ Plan: Disposition-continued stay in PCU Admission and Anticipated Discharge Date Admission Date: October 14, 2020 Subjective Patient reports overall feeling significantly improved since admission. She is still having some low-grade fevers. She denies any further abdominal pain or epigastric full sensation like yesterday since being diuresed. She denies any nausea or vomiting and is tolerating a diet. Denies any blood in the stool. She is moving her bowels loosely since being on lactulose. She denies any back pain or leg pain, no weakness. She has been weaned down to 2 L nasal cannula Telemetry with normal sinus rhythm and sinus tachycardia with rates in the 90s to low 100s. Review of Systems Review of Systems: All systems reviewed & are unremarkable except as noted in HPI & below Physical Exam Constitutional: WD/WN, vitals as above Eyes: + anicteric sclerae ENMT: external ear and nose normal, oropharynx normal Neck: trachea midline, no thyromegaly Respiratory: normal respiratory effort Auscultation: + diminished lung sounds (At bases bilaterally) Cardiovascular: Rate/Rhythm: regular rate and regular rhythm Heart Sounds: + murmur (2/6 systolic murmur at the left lower sternal border and apex) Chest (Breasts): Chest: normal inspection of chest Gastrointestinal (Abdomen): normal bowel sounds, soft, nontender, no hepatosplenomegaly Musculoskeletal: Extremities: + extremities abnormal to inspection (Right foot 1+ edema through ankle, no erythema, full range of motion), no cyanosis and no clubbing Skin: no rashes, warm and dry Neurologic: moves all extremities and awake; no focal motor deficits Psychiatric: A+Ox3, euthymic affect Lymphatic: no lymphedema Results & Data Results & Data ([facility]) Vital Signs (Past 12 Hours) Vital Signs Temp Pulse Resp BP Pulse Ox 10/16/20 12:00 36.8 C 74 20 121/62 98 10/16/20 08:14 36.5 C 87 20 131/70 99 10/16/20 03:14 37.7 C H 103 H 18 104/61 90 Laboratory Results 10/16/20 10/16/20 10/16/20 Range/Units 21:07 16:32 12:04 WBC (4.8-10.8) K/uL RBC (4.2-5.4) M/uL Hgb (12.0-16.0) g/dL Hct (37-47) % MCV (80-100) fL MCH (25-34) pg MCHC (32-36) g/dL RDW Std Deviation (36.4-46.3) fL RDW Coeff of Jeremie (11.5-14.5) % Plt Count (130-400) K/uL MPV (7.4-10.4) fL Immature Gran % (Auto) % Neut % (Auto) % Lymph % (Auto) % Arthur % (Auto) % Eos % (Auto) % Baso % (Auto) % Neut # (Auto) (1.4-6.5) K/uL Lymph # (Auto) (1.2-3.4) K/uL Arthur # (Auto) (0.11-0.59) K/uL Eos # (Auto) (0-0.5) K/uL Baso # (Auto) (0-0.2) K/uL Immature Gran # (Auto) (0.00-0.02) K/uL Absolute Nucleated RBC (0-0) K/uL Nucleated RBC % (auto) % PT (9.0-12.0) Seconds INR (0.9-1.1) Sodium (136-145) mmol/L Potassium (3.5-5.1) mmol/L Chloride (98-107) mmol/L Carbon Dioxide (21-32) mmol/L Anion Gap (3-11) BUN (7-18) mg/dl Creatinine (0.6-1.2) mg/dl Est Cr Clr Drug Dosing ml/min Est GFR ( Amer) ml/min Est GFR (Non-Af Amer) ml/min BUN/Creatinine Ratio (10-20) Glucose (70-99) mg/dl POC Glucose 195 H 246 H 192 H (70-99) mg/dl Calcium (8.5-10.1) mg/dl Phosphorus (2.5-4.9) mg/dl Magnesium (1.8-2.4) mg/dl Iron (35-150) mcg/dl TIBC (250-450) mcg/dl Transferrin (200-360) mg/dl Transferrin % Sat (15-50) % Ferritin (8-388) ng/ml Total Bilirubin (0.2-1) mg/dl AST (15-37) U/L ALT (12-78) U/L Alkaline Phosphatase (45-117) U/L Total Protein (6.4-8.2) gm/dl Albumin (3.4-5.0) gm/dl Globulin (2.5-4.0) gm/dl Albumin/Globulin Ratio (0.9-2) TSH (0.300-4.500) uIu/ml Stool Occult Bld Scrn (Negative) 10/16/20 10/16/20 10/16/20 Range/Units 11:00 07:43 07:21 WBC (4.8-10.8) K/uL RBC (4.2-5.4) M/uL Hgb (12.0-16.0) g/dL Hct (37-47) % MCV (80-100) fL MCH (25-34) pg MCHC (32-36) g/dL RDW Std Deviation (36.4-46.3) fL RDW Coeff of Jeremie (11.5-14.5) % Plt Count (130-400) K/uL MPV (7.4-10.4) fL Immature Gran % (Auto) % Neut % (Auto) % Lymph % (Auto) % Arthur % (Auto) % Eos % (Auto) % Baso % (Auto) % Neut # (Auto) (1.4-6.5) K/uL Lymph # (Auto) (1.2-3.4) K/uL Arthur # (Auto) (0.11-0.59) K/uL Eos # (Auto) (0-0.5) K/uL Baso # (Auto) (0-0.2) K/uL Immature Gran # (Auto) (0.00-0.02) K/uL Absolute Nucleated RBC (0-0) K/uL Nucleated RBC % (auto) % PT (9.0-12.0) Seconds INR (0.9-1.1) Sodium (136-145) mmol/L Potassium (3.5-5.1) mmol/L Chloride (98-107) mmol/L Carbon Dioxide (21-32) mmol/L Anion Gap (3-11) BUN (7-18) mg/dl Creatinine (0.6-1.2) mg/dl Est Cr Clr Drug Dosing ml/min Est GFR ( Amer) ml/min Est GFR (Non-Af Amer) ml/min BUN/Creatinine Ratio (10-20) Glucose (70-99) mg/dl POC Glucose 115 H (70-99) mg/dl Calcium (8.5-10.1) mg/dl Phosphorus (2.5-4.9) mg/dl Magnesium (1.8-2.4) mg/dl Iron 20 L (35-150) mcg/dl TIBC 286 (250-450) mcg/dl Transferrin 237 (200-360) mg/dl Transferrin % Sat 6 L (15-50) % Ferritin 33.1 (8-388) ng/ml Total Bilirubin (0.2-1) mg/dl AST (15-37) U/L ALT (12-78) U/L Alkaline Phosphatase (45-117) U/L Total Protein (6.4-8.2) gm/dl Albumin (3.4-5.0) gm/dl Globulin (2.5-4.0) gm/dl Albumin/Globulin Ratio (0.9-2) TSH (0.300-4.500) uIu/ml Stool Occult Bld Scrn Negative (Negative) 10/16/20 10/16/20 10/16/20 Range/Units 07:21 07:21 07:21 WBC 7.23 (4.8-10.8) K/uL RBC 3.80 L (4.2-5.4) M/uL Hgb 9.1 L (12.0-16.0) g/dL Hct 28.7 L (37-47) % MCV 75.5 L (80-100) fL MCH 23.9 L (25-34) pg MCHC 31.7 L (32-36) g/dL RDW Std Deviation 46.3 (36.4-46.3) fL RDW Coeff of Jeremie 16.8 H (11.5-14.5) % Plt Count 195 (130-400) K/uL MPV 9.1 (7.4-10.4) fL Immature Gran % (Auto) 0.3 % Neut % (Auto) 55.9 % Lymph % (Auto) 28.1 % Arthur % (Auto) 11.3 % Eos % (Auto) 4.0 % Baso % (Auto) 0.4 % Neut # (Auto) 4.04 (1.4-6.5) K/uL Lymph # (Auto) 2.03 (1.2-3.4) K/uL Arthur # (Auto) 0.82 H (0.11-0.59) K/uL Eos # (Auto) 0.29 (0-0.5) K/uL Baso # (Auto) 0.03 (0-0.2) K/uL Immature Gran # (Auto) 0.02 (0.00-0.02) K/uL Absolute Nucleated RBC 0.06 H (0-0) K/uL Nucleated RBC % (auto) 0.8 % PT 13.1 H (9.0-12.0) Seconds INR 1.3 H (0.9-1.1) Sodium 135 L (136-145) mmol/L Potassium 2.4 L* D (3.5-5.1) mmol/L Chloride 105 (98-107) mmol/L Carbon Dioxide 22 (21-32) mmol/L Anion Gap 8.0 (3-11) BUN 2 L (7-18) mg/dl Creatinine 0.41 L (0.6-1.2) mg/dl Est Cr Clr Drug Dosing 156.2 ml/min Est GFR ( Amer) 133.9 ml/min Est GFR (Non-Af Amer) 115.5 ml/min BUN/Creatinine Ratio 4.7 L (10-20) Glucose 113 H (70-99) mg/dl POC Glucose (70-99) mg/dl Calcium 7.7 L (8.5-10.1) mg/dl Phosphorus 2.6 (2.5-4.9) mg/dl Magnesium 1.4 L (1.8-2.4) mg/dl Iron (35-150) mcg/dl TIBC (250-450) mcg/dl Transferrin (200-360) mg/dl Transferrin % Sat (15-50) % Ferritin (8-388) ng/ml Total Bilirubin 1.5 H (0.2-1) mg/dl AST 23 (15-37) U/L ALT 18 (12-78) U/L Alkaline Phosphatase 110 (45-117) U/L Total Protein 6.2 L (6.4-8.2) gm/dl Albumin 2.0 L (3.4-5.0) gm/dl Globulin 4.2 H (2.5-4.0) gm/dl Albumin/Globulin Ratio 0.5 L (0.9-2) TSH 3.210 (0.300-4.500) uIu/ml Stool Occult Bld Scrn (Negative) PG Care Time/CCT Total # of Minutes Spent Total Time Spent with Patient: Total time spent is greater than 50% in coordination of care (as documented) at patient's floor/unit and/or counseling patient: Coding Level of Care Code 12432 Subseq Hosp Care Lvl 3 Diagnoses Septicemia A41.9 Encephalopathy acute G93.40 Epigastric pain R10.13 Acute respiratory failure with hypoxia J96.01 Hypomagnesemia E83.42 Diabetes mellitus E11.9 UTI (urinary tract infection) N39.0 Abnormal x-ray R93.89 Hepatic encephalopathy K72.90 History of esophageal varices Z87.19 Alcoholic cirrhosis K70.30 Foot pain, right M79.671 Hypokalemia E87.6 History of alcohol abuse F10.11 Depression F32.9 DVT prophylaxis Z29.9 Iron deficiency anemia D50.9 Charcot arthropathy of midfoot M14.679
[2020-10-16] MEDS: ACETAMINOPHEN 325 MG TAB PO PRN (23:26)
[2020-10-17] MEDS: VANCOMYCIN HCL 1,500 MG in SODIUM CHLORIDE 0.9% 500 ML IV SCH ×3 (05:00→20:29)
[2020-10-17] MEDS: PIPERACILLIN/TAZOBACTAM 3.375 GM in DEXTROSE 5% 100 ML IV SCH ×3 (05:00→20:29)
[2020-10-17] MEDS: ENOXAPARIN INJ 40 MG/0.4 ML SYR SQ SCH (05:01)
[2020-10-17 06:27] LABS: Basophils # (auto) 0.02 K/uL (0-0.2); Basophils % (auto) 0.4 %; Eosinophils # (auto) 0.31 K/uL (0-0.5); Eosinophils % (auto) 6.3 %; Hematocrit (blood only) 28.7 % (37-47); Hemoglobin 9.2 g/dL (12.0-16.0); Immature Granulocytes # (auto) 0.01 K/uL (0.00-0.02); Immature Granulocytes % (auto) 0.2 %; Lymphocytes # (auto) 1.57 K/uL (1.2-3.4); Mean Corpuscular Hemoglobin 24.1 pg (25-34); Mean Corpuscular Hgb Conc 32.1 g/dL (32-36); Mean Corpuscular Volume 75.3 fL (80-100); Mean Platelet Volume 9.7 fL (7.4-10.4); Monocytes # (auto) 0.59 K/uL (0.11-0.59); Neutrophils # (auto) 2.41 K/uL (1.4-6.5); Neutrophils % (auto) 49.1 %; Nucleated RBC # (auto) 0.04 K/uL (0-0); Nucleated RBC % (auto) 0.8 %; Platelet Count 237 K/uL (130-400); RDW Coefficient of Variation 16.9 % (11.5-14.5); RDW Standard Deviation 46.5 fL (36.4-46.3); Red Blood Count 3.81 M/uL (4.2-5.4); White Blood Count 4.91 K/uL (4.8-10.8)
[2020-10-17 07:39] LABS: Albumin Globulin Ratio 0.5 (0.9-2); BUN Creatinine Ratio 9.9 (10-20); Bilirubin,Total 1.4 mg/dl (0.2-1); Calcium 7.9 mg/dl (8.5-10.1); Creatinine Clr Calc Pharmacy 177.9 ml/min; Est GFR (African American) 139.7 ml/min; Est GFR (Non-African American) 120.5 ml/min; Globulin 4.2 gm/dl (2.5-4.0); Magnesium 1.8 mg/dl (1.8-2.4); Phosphorus 2.5 mg/dl (2.5-4.9); Potassium 3.1 mmol/L (3.5-5.1); Total Protein 6.2 gm/dl (6.4-8.2)
[2020-10-17] MEDS: FOLIC ACID 1 MG TAB PO SCH (08:39)
[2020-10-17] MEDS: PANTOprazole 40 MG TAB PO SCH ×2 (08:39→20:30)
[2020-10-17] MEDS: THIAMINE HCL 100 MG TAB PO SCH (08:39)
[2020-10-17] MEDS: LACTULOSE SYRUP 30 GM/45 ML UDP PO SCH ×3 (08:39→20:30)
[2020-10-17] MEDS: rifAXIMin 550 MG TABLET PO SCH ×2 (08:40→20:30)
[2020-10-17] MEDS: INSULIN GLARGINE SOLOSTAR 100 UNITS/ML 3 ML PEN SC SCH ×2 (08:40→20:30)
[2020-10-17] MEDS: INSULIN ASPART 100 UNITS/ML 3 ML PEN SC SCH ×4 (08:41→20:12)
[2020-10-17] MEDS: FUROSEMIDE 20 MG in SYRINGE 0 ML IV SCH (09:21)
--- NOTE | 2020-10-17 09:43 | Hospitalist Progress Note ---
Date of Service October 17, 2020 Assessment & Plan (1) Septicemia: Plan: Presented with acute metabolic encephalopathy and fever initially with unknown source except for possible UTI. 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 She does have a history of epidural abscess that required drainage, however she is not having any back pain or radiculopathy or lower extremity weakness suggestive of this No skin lesions anywhere. Denies IVDU. CT of chest/abdomen/pelvis-does show changes in the kidneys possibly consistent with pyelonephritis and a complex cyst. No pneumonia but has compressive atelectasis due to pleural effusions. Does have cholelithiasis on imaging, but no evidence of cholecystitis clinically. Echocardiogram without valvular vegetation, and with LVEF 65-70%, trace pericardial effusion without tamponade physiology, mild mitral regurgitation -Continue Zosyn and vancomycin for broad-spectrum antibiotic coverage for Staphylococcus species and gram-positive bacilli in the blood and alpha Streptococcus in the urine -May need BRANDY -Follow-up final blood cultures ID and sensitivity -Repeat blood cultures-no @ 48 hours -Follow-up Anaplasma DNA PCR when available although do not suspect she has this at this time Reportedly had ID consult yesterday but result not scanned in. Will try to track this down. (2) Encephalopathy acute: Plan: Secondary to septicemia as above plus some component of hepatic encephalopathy initially Now resolved with treating with antibiotics as well as lactulose Continue lactulose 30 g 3 times daily and started rifaximin as per GI with goal of 3 bowel movements daily -Continue with antibiotics as above (3) Acute respiratory failure with hypoxia: Plan: Pulse ox in the 70s on the morning of 10/15 requiring 5 L nasal cannula Chest CT angiogram performed was negative for PE but did show bilateral pleural effusions and compressive atelectasis and possible pneumonia Patient is volume overloaded after receiving IV fluids for fevers and sepsis. She also has not been taking her usual furosemide and spironolactone for the last month as she ran out of medication and her moved to this area Echocardiogram with preserved EF With significant hypoalbuminemia contributing to third spacing -Continue IV Lasix 20 mg IV daily today along with potassium replacement. Add spironolactone 25mg PO daily -> up titrate back to 100mg if Cr stable. -Typically takes spironolactone 100 mg daily and Lasix 40 mg p.o. 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 twice daily in case of gastritis Also diuresed and had bilateral pleural effusions Epigastric discomfort is now completely resolved (7) Abnormal x-ray: Plan: right foot Secondary to Charcot foot MRI obtained in consultation with orthopedics appreciated (8) Hepatic encephalopathy: Plan: As above, now improved with lactulose Continue lactulose and started rifaximin (9) History of esophageal varices: Plan: Noted Starting Protonix Watch for bleeding Hemoglobin down but stable at 9 Follow CBC No evidence of ongoing bleeding Should start beta-gm at some point for portal hypertension although current BP and starting spironolactone mean we will defer at the current time. She does have a coil seen on CT abdomen/pelvis at the region of the splenic hilum which could represent posttreatment changes of a splenorenal shunt-patient does recall some sort of procedure a couple of years ago for this (10) Alcoholic cirrhosis: Plan: Has been sober since June 2020 but has a long history of cirrhosis Has not yet established with GI in this area Consult GI here [id number] as an outpatient and will obtain old records Started lactulose, rifaximin With portal hypertension-Will need beta-gm at some point after this infection is cleared up if blood pressure can tolerate (11) Foot pain, right: Plan: As above, right foot MRI obtained for chronic swelling and pain in the right foot Orthopedic surgeon agrees that this is a Charcot foot and not osteomyelitis Appreciate orthopedics consultation Placed in a cam walking boot for now, but needs total contact cast as an outpatient Follow-up with orthopedics after discharge (12) Hypomagnesemia: Plan: Start Mg Ox 400mg PO QAM Repeat level in AM (13) Hypokalemia: Plan: Secondary to Lasix use. Monitor for improvement with spironolactone and potassium supplementation Follow BMP and magnesium in the morning (14) History of alcohol abuse: Plan: severe with resulting cirrhosis no etoh use for several months per unless she is using it secretly Continue thiamine and folate but convert to p.o. (15) Depression: Plan: No acute issues and on medications for this (16) Iron deficiency anemia: Plan: Hemoglobin 9.1, MCV low at 75 Iron studies consistent with iron deficiency anemia with transferrin saturation of 6% Hemoccult stool is negative Hold off on IV iron at this time due to bacteremia Could consider oral iron but this would turn her stool black-do not want to confuse the picture at this time Consider oral iron upon discharge (17) Charcot arthropathy of midfoot: Plan: As above Follow-up with orthopedic surgery Plan: VTE Prophylaxis - Lovenox 40mg SQ daily Disposition-continued stay in PCU Admission and Anticipated Discharge Date Admission Date: October 14, 2020 Subjective No back pain or left CVA tenderness. No further fever or chills. Right foot feels improved now utilizing a walking boot. Telemetry with normal sinus rhythm and sinus tachycardia with rates in the 90s to low 100s. Review of Systems Review of Systems: All systems reviewed & are unremarkable except as noted in Subjective Physical Exam Constitutional: WD/WN, vitals as above Eyes: + anicteric sclerae ENMT: external ear and nose normal, oropharynx normal Neck: trachea midline, no thyromegaly Respiratory: normal respiratory effort Auscultation: lungs clear to auscultation bilaterally Cardiovascular: Rate/Rhythm: regular rate and regular rhythm Heart Sounds: + murmur (2/6 systolic murmur @ apex) Chest (Breasts): Chest: normal inspection of chest Gastrointestinal (Abdomen): normal bowel sounds, soft, nontender, no hepatosplenomegaly Musculoskeletal: Extremities: + extremities abnormal to inspection (right foot in walking boot not removed), no cyanosis and no clubbing Skin: no rashes, warm and dry Neurologic: moves all extremities and awake; no focal motor deficits Psychiatric: A+Ox3, euthymic affect Results & Data Results & Data ([facility]) Vital Signs (Past 12 Hours) Vital Signs Temp Pulse Pulse Resp BP BP Pulse Ox 10/17/20 08:31 36.7 C 93 H 18 121/70 90 10/17/20 02:23 36.8 C 98 H 18 101/55 L 92 10/16/20 23:21 37.8 C H 97 H 18 110/68 91 10/16/20 22:20 100 H PG Care Time/CCT Total # of Minutes Spent Total Time Spent with Patient: Total time spent is greater than 50% in coordin ation of care (as documented) at patient's floor/unit and/or counseling patient: Coding Level of Care Code 22865 Subseq Hosp Care Lvl 3 Diagnoses Septicemia A41.9 Encephalopathy acute G93.40 Acute respiratory failure with hypoxia J96.01 UTI (urinary tract infection) N39.0 Diabetes mellitus E11.9 Epigastric pain R10.13 Abnormal x-ray R93.89 Hepatic encephalopathy K72.90 History of esophageal varices Z87.19 Alcoholic cirrhosis K70.30 Foot pain, right M79.671 Hypomagnesemia E83.42 Hypokalemia E87.6 History of alcohol abuse F10.11 Depression F32.9 Iron deficiency anemia D50.9 Charcot arthropathy of midfoot M14.679
[2020-10-17] MEDS ORDERED: POTASSIUM CHLORIDE CRTAB 20 MEQ TABCR PO STA (09:54)
[2020-10-17] MEDS: MAGNESIUM OXIDE 400 MG TAB PO SCH (10:55)
[2020-10-17] MEDS ORDERED: VANCOMYCIN TROUGH ONE (11:30)
[2020-10-17] MEDS: SPIRONOLACTONE 25 MG TAB PO SCH (11:58)
[2020-10-18] MEDS: ACETAMINOPHEN 325 MG TAB PO PRN (02:37)
[2020-10-18] MEDS: ENOXAPARIN INJ 40 MG/0.4 ML SYR SQ SCH (05:19)
[2020-10-18] MEDS: PIPERACILLIN/TAZOBACTAM 3.375 GM in DEXTROSE 5% 100 ML IV SCH (05:19)
[2020-10-18] MEDS: VANCOMYCIN HCL 1,500 MG in SODIUM CHLORIDE 0.9% 500 ML IV SCH (05:19)
[2020-10-18 05:58] LABS: BUN Creatinine Ratio 7.5 (10-20); Calcium 8.1 mg/dl (8.5-10.1); Creatinine Clr Calc Pharmacy 125.6 ml/min; Est GFR (African American) 124.6 ml/min; Est GFR (Non-African American) 107.5 ml/min; Magnesium 1.9 mg/dl (1.8-2.4); Potassium 3.6 mmol/L (3.5-5.1)
[2020-10-18] MEDS: INSULIN ASPART 100 UNITS/ML 3 ML PEN SC SCH ×4 (09:08→21:12)
[2020-10-18] MEDS: FUROSEMIDE 20 MG in SYRINGE 0 ML IV SCH (09:12)
[2020-10-18] MEDS: INSULIN GLARGINE SOLOSTAR 100 UNITS/ML 3 ML PEN SC SCH ×2 (09:13→21:13)
[2020-10-18] MEDS: rifAXIMin 550 MG TABLET PO SCH ×2 (09:15→21:12)
[2020-10-18] MEDS: PANTOprazole 40 MG TAB PO SCH (09:15)
[2020-10-18] MEDS: MAGNESIUM OXIDE 400 MG TAB PO SCH (09:15)
[2020-10-18] MEDS: THIAMINE HCL 100 MG TAB PO SCH (09:16)
[2020-10-18] MEDS: SPIRONOLACTONE 25 MG TAB PO SCH (09:16)
[2020-10-18] MEDS: LACTULOSE SYRUP 30 GM/45 ML UDP PO SCH ×3 (09:17→21:12)
[2020-10-18] MEDS ORDERED: SPIRONOLACTONE 25 MG TAB PO ONE (10:00)
[2020-10-18] MEDS: ceFAZolin 2000MG 2,000 MG/15 ML SYR IV SCH ×2 (12:30→21:12)
--- NOTE | 2020-10-18 16:07 | Hospitalist Progress Note ---
Date of Service October 18, 2020 Assessment & Plan (1) Septicemia: Plan: Presented with acute metabolic encephalopathy and fever initially with unknown source except for possible UTI. 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 She does have a history of epidural abscess that required drainage, however she is not having any back pain or radiculopathy or lower extremity weakness suggestive of this No skin lesions anywhere. Denies IVDU. CT of chest/abdomen/pelvis-does show changes in the kidneys possibly consistent with pyelonephritis and a complex cyst. No pneumonia but has compressive atelectasis due to pleural effusions. Does have cholelithiasis on imaging, but no evidence of cholecystitis clinically. Echocardiogram without valvular vegetation, and with LVEF 65-70%, trace pericardial effusion without tamponade physiology, mild mitral regurgitation - Repeat blood cultures-no @ 48 hours - Follow-up Anaplasma DNA PCR when available although do not suspect she has this at this time - Appreciate ID consult planning on 6 week IV antibiotics ?Anc or if not possible will contact ID tomorrow to determine if can be switched to ceftriaxone. (2) Encephalopathy acute: Plan: Secondary to septicemia as above plus some component of hepatic encephalopathy initially Now resolved with treating with antibiotics as well as lactulose Continue lactulose 30 g 3 times daily and started rifaximin as per GI with goal of 3 bowel movements daily -Continue with antibiotics as above (3) Acute respiratory failure with hypoxia: Plan: Pulse ox in the 70s on the morning of 10/15 requiring 5 L nasal cannula Chest CT angiogram performed was negative for PE but did show bilateral pleural effusions and compressive atelectasis and possible pneumonia Patient is volume overloaded after receiving IV fluids for fevers and sepsis. She also has not been taking her usual furosemide and spironolactone for the last month as she ran out of medication and her moved to this area Echocardiogram with preserved EF With significant hypoalbuminemia contributing to third spacing -Continue IV Lasix 20 mg IV daily today along with potassium replacement. Add spironolactone 25mg PO daily -> up titrate back to 100mg if Cr stable. -Typically takes spironolactone 100 mg daily and Lasix 40 mg p.o. 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 twice daily in case of gastritis Also diuresed and had bilateral pleural effusions Epigastric discomfort is now completely resolved (7) Abnormal x-ray: Plan: right foot Secondary to Charcot foot MRI obtained in consultation with orthopedics appreciated (8) Hepatic encephalopathy: Plan: As above, now improved with lactulose Continue lactulose and started rifaximin (9) History of esophageal varices: Plan: Noted Starting Protonix Watch for bleeding Hemoglobin down but stable at 9 Follow CBC No evidence of ongoing bleeding Should start beta-gm at some point for portal hypertension although current BP and starting spironolactone mean we will defer at the current time. She does have a coil seen on CT abdomen/pelvis at the region of the splenic hilum which could represent posttreatment changes of a splenorenal shunt-patient does recall some sort of procedure a couple of years ago for this (10) Alcoholic cirrhosis: Plan: Has been sober since June 2020 but has a long history of cirrhosis Has not yet established with GI in this area Consult GI here [id number] as an outpatient and will obtain old records Started lactulose, rifaximin With portal hypertension-Will need beta-gm at some point after this infection is cleared up if blood pressure can tolerate (11) Foot pain, right: Plan: As above, right foot MRI obtained for chronic swelling and pain in the right foot Orthopedic surgeon agrees that this is a Charcot foot and not osteomyelitis Appreciate orthopedics consultation Placed in a cam walking boot for now, but needs total contact cast as an outpatient Follow-up with orthopedics after discharge (12) Hypomagnesemia: Plan: Start Mg Ox 400mg PO QAM Repeat level in AM (13) Hypokalemia: Plan: Secondary to Lasix use. Monitor for improvement with spironolactone and potassium supplementation Follow BMP and magnesium in the morning (14) History of alcohol abuse: Plan: severe with resulting cirrhosis no etoh use for several months per unless she is using it secretly Continue thiamine and folate but convert to p.o. (15) Depression: Plan: No acute issues and on medications for this (16) Iron deficiency anemia: Plan: Hemoglobin 9.1, MCV low at 75 Iron studies consistent with iron deficiency anemia with transferrin saturation of 6% Hemoccult stool is negative Hold off on IV iron at this time due to bacteremia Could consider oral iron but this would turn her stool black-do not want to confuse the picture at this time Consider oral iron upon discharge (17) Charcot arthropathy of midfoot: Plan: As above Follow-up with orthopedic surgery Plan: VTE Prophylaxis - Lovenox 40mg SQ daily Disposition-continued stay in PCU Admission and Anticipated Discharge Date Admission Date: October 14, 2020 Subjective No back pain or left CVA tenderness. Low grade fevers measured but patient not feeling any chills. Telemetry: IVCD NSR 80-90s Review of Systems Review of Systems: All systems reviewed & are unremarkable except as noted in HPI & below Physical Exam Constitutional: WD/WN, vitals as above Eyes: + anicteric sclerae Neck: trachea midline, no thyromegaly Respiratory: normal respiratory effort Cardiovascular: Rate/Rhythm: regular rate and regular rhythm Heart Sounds: + murmur (2/6 systolic murmur @ apex) Chest (Breasts): Chest: normal inspection of chest Musculoskeletal: Extremities: + extremities abnormal to inspection (right foot in walking boot not removed), no cyanosis and no clubbing Skin: no rashes, warm and dry Neurologic: moves all extremities and awake; no focal motor deficits Psychiatric: A+Ox3, euthymic affect Genitourinary: no CVA tenderness Results & Data Results & Data ([facility]) Vital Signs (Past 12 Hours) Vital Signs Temp Pulse Pulse Resp BP BP Pulse Ox 10/18/20 15:18 36.5 C 90 91 H 18 125/80 95 10/18/20 07:36 87 10/18/20 07:13 36.4 C L 84 17 115/72 90 PG Care Time/CCT Total # of Minutes Spent Total Time Spent with Patient: Total time spent is greater than 50% in coordination of care (as documented) at patient's floor/unit and/or counseling patient: Coding Level of Care Code 55719 Subseq Hosp Care Lvl 2 Diagnoses Septicemia A41.9 Encephalopathy acute G93.40 Acute respiratory failure with hypoxia J96.01 UTI (urinary tract infection) N39.0 Diabetes mellitus E11.9 Epigastric pain R10.13 Abnormal x-ray R93.89 Hepatic encephalopathy K72.90 History of esophageal varices Z87.19 Alcoholic cirrhosis K70.30 Foot pain, right M79.671 Hypomagnesemia E83.42 Hypokalemia E87.6 History of alcohol abuse F10.11 Depression F32.9 Iron deficiency anemia D50.9 Charcot arthropathy of midfoot M14.679
[2020-10-19] MEDS: ACETAMINOPHEN 325 MG TAB PO PRN (00:09)
[2020-10-19] MEDS: ENOXAPARIN INJ 40 MG/0.4 ML SYR SQ SCH (05:07)
[2020-10-19] MEDS: ceFAZolin 2000MG 2,000 MG/15 ML SYR IV SCH ×2 (05:07→12:20)
[2020-10-19 07:01] LABS: BUN Creatinine Ratio 11.9 (10-20); Calcium 8.5 mg/dl (8.5-10.1); Creatinine Clr Calc Pharmacy 134.1 ml/min; Est GFR (African American) 127.1 ml/min; Est GFR (Non-African American) 109.7 ml/min; Potassium 3.3 mmol/L (3.5-5.1)
[2020-10-19] MEDS: LACTULOSE SYRUP 30 GM/45 ML UDP PO SCH ×2 (07:51→14:00)
[2020-10-19] MEDS: FOLIC ACID 1 MG TAB PO SCH (07:51)
[2020-10-19] MEDS: MAGNESIUM OXIDE 400 MG TAB PO SCH (07:51)
[2020-10-19] MEDS: rifAXIMin 550 MG TABLET PO SCH (07:52)
[2020-10-19] MEDS: THIAMINE HCL 100 MG TAB PO SCH (07:52)
[2020-10-19] MEDS: INSULIN ASPART 100 UNITS/ML 3 ML PEN SC SCH ×2 (08:45→13:03)
[2020-10-19] MEDS: INSULIN GLARGINE SOLOSTAR 100 UNITS/ML 3 ML PEN SC SCH (08:46)
[2020-10-19] MEDS ORDERED: PANTOprazole 40 MG TAB PO SCH (09:00)
[2020-10-19] MEDS ORDERED: FUROSEMIDE 20 MG TAB PO SCH (09:00)
[2020-10-19] MEDS ORDERED: SPIRONOLACTONE 25 MG TAB PO SCH (09:00)
[2020-10-19] MEDS ORDERED: FUROSEMIDE 40 MG TAB PO SCH (09:00)
[2020-10-19] MEDS ORDERED: ceFAZolin 2000MG 2,000 MG/15 ML SYR IV ONE (18:00)
--- NOTE | 2020-10-21 09:06 | Discharge Summary ---
Date of Service October 19, 2020 Admission HPI Per Admitting Provider The patient was brought to the emergency department by the patient's , who reports that the patient has been quite weak, lethargic and having decreased responsiveness since earlier in the morning. The patient herself is unable to contribute significantly to her HPI or review of systems due to altered mental status Primary Care Provider: NO PCP Little information is provided by patient due to altered mental state. Her does relate that she has had a history of diabetes mellitus, former alcohol abuse, low magnesium and has had a infection in her right foot requiring IV antibiotics. Principal Diagnosis MSSA (staph aureus) bacteremia Discharge Exam Constitutional well developed; + not well nourished and no acute distress Eyes + anicteric sclerae; normal pupil size ENMT external ear and nose normal, oropharynx normal Respiratory normal respiratory effort, lungs clear to auscultation Cardiovascular RRR, no murmur, no edema Gastrointestinal (Abdomen) normal bowel sounds, soft, nontender, no hepatosplenomegaly Musculoskeletal no cyanosis or clubbing, extremities motor strength 5/5 Skin no rashes, warm and dry Neurologic moves all extremities and awake; not confused Psychiatric A+Ox3, euthymic affect Discharge Data Allergies Allergy/AdvReac Type Severity Reaction Status Date / Time No Known Allergies Allergy Unverified 10/13/20 23:17 Consultations 10/13/20 23:30 ED Decision to Admit Stat 10/15/20 10:01 Consult Gastroenterology Routine Consult Orthopedic Surgery Routine 10/15/20 10:06 Consult Infectious Diseases Routine Ordered Studies 10/13/20 21:41 CT head/brain wo con Urgent IMPRESSION: No acute intracranial findings. 10/14/20 16:04 MR foot RT w/o con Routine IMPRESSION: 1. Diffuse soft tissue edema associated with bone marrow edema at the metatarsal region involving second-fifth metatarsal bones and tarsometatarsal region might represent neuropathic joint however inflammatory process/osteomyelitis is also possible. 2. Linear/curvilinear areas of decreased signal within second and third metatarsal bones might represent avascular necrosis. Fracture deformity is less likely. 3. Degenerative changes of the first metatarsophalangeal joint and subchondral cysts. 4. Limited exam due to motion artifact. 10/15/20 09:55 CT abd pelvis IV con only Urgent IMPRESSION: 1. Small bilateral pleural effusion associated with consolidative opacities within bilateral lower lobes which might represent pneumonia. 2. Mild pulmonary edema which could be due to edematous state. 3. Liver cirrhosis, splenomegaly and ascites. Varices and subcutaneous collaterals at the anterior abdominal wall. Limited evaluation of upper abdomen due to prominent beam hardening artifact from metallic densities at the region of splenic hilum which could represent post treatment changes of the splenorenal shunt versus other etiology. 4. Dilated gallbladder with luminal gallstones. Above-mentioned findings might be seen in cholecystitis however evaluation for pericholecystic edema is limited due to ascites. Please correlate above-mentioned findings with right upper quadrant tenderness. 5. Questionable decreased opacification of the left renal cortex which might represent pyelonephritis. Please correlate above-mentioned findings with laboratory data inflammatory markers . 10/15/20 09:58 CT angio chest PE protocol Stat IMPRESSION: 1. Cardiomegaly with small layering pleural effusions, interstitial pulmonary edema and compressive bibasilar atelectasis. 2. Additional patchy bilateral groundglass and consolidative opacities are suggestive of alveolar pulmonary edema versus superimposed pneumonia. 3. Cirrhosis with stigmata of portal venous hypertension. 4. No pulmonary emboli. 10/15/20 14:30 US liver Routine IMPRESSION: 1. Cirrhosis. 2. Cholelithiasis with mild gallbladder distention. No sonographic Cowart sign. These findings do not strongly suggest acute cholecystitis however if right upper quadrant pain, a hepatobiliary scan could be obtained. 3. Small amount of ascites. 4. Borderline dilatation of the common bile duct. Diabetes Follow up Diabetes Follow-up Needed for HgbA1c >9% Hospital Course (1) Septicemia: Hilary Gutiérrez is a 55 year old female with history of alcohol use disorder recently moved to the area admitted to [facility] from October 14 to October 19, 2020 due to generalized weakness and altered mental state. She was diagnosed with MSSA bacteremia. This was treated with IV antibiotics during her inpatient stay and on discussion with infectious disease recommend a total of 6 weeks of Cefazolin to be administered via a PICC line at home from her negative blood culture on October 15. Transthoracic echocardiogram showed no vegetation. Suspect the source of the infection is osteomyelitis in her right foot however on consultation with orthopedics unclear whether MRI changes are professional healthcare representative of infection of Charcot's joint. Orthopedics recommended a walking boot and following up in 3-[address] Tanner. She was also hypoxic and diagnosed with respiratory failure due to pulmonary edema as suspect she hasn't been taking her medications for her liver cirrhosis. She was restarted on furosemide and spironolctone although onyl managing to tolerate half her usual prior dose. She also has known alcoholic liver cirrhosis and should follow up with gastroenterology. Part of her presentation may have been hepatic encephalopathy and she was started on lactulose and rifixamin for this. Nadolol started due to esophageal varices. 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 She was started on the insulin regimen below for this but will need constant adjustment as she goes back to eating her regular diet. Recommended to follow up with our diabetes clinic or PCP for this. She was also noted to be iron deficient and was started on iron supplementation. Consider repeat studies in approximately a month to determine if she requires intravenous treatment. (2) Encephalopathy acute: (3) Acute respiratory failure with hypoxia: (4) UTI (urinary tract infection): (5) Diabetes mellitus: (6) Epigastric pain: (7) Abnormal x-ray: (8) Hepatic encephalopathy: (9) History of esophageal varices: (10) Alcoholic cirrhosis: (11) Foot pain, right: (12) Hypomagnesemia: (13) Hypokalemia: (14) History of alcohol abuse: (15) Depression: (16) Iron deficiency anemia: (17) Charcot arthropathy of midfoot: Total Time Total Time Spent Total Time Spent (In Minutes): 50 Discharge Plan Discharge Items Patient Disposition: Home - Home Health Services Reason For Visit: sepsis,encephalopathy,hyperglycemia,uti,R foot inf Discharge Diagnosis: MSSA (staph aureus) bacteremia Activity: Resume your previous activity Weightbearing: Right weightbearing Weightbearing Comment: with assistive device Non-emergency contact: Primary Care Provider Call non-emergency contact if: you have any medication questions and your symptoms worsen Follow-up/Referrals: Aleksandar Bailey DO [Physician] - (4-6 weeks for alcoholic cirrhosis) Kimberlee Ireland MD [Primary Care Provider] - 10/29/20 10:00 am (You have been established with a new primary care provider: Dr. Ireland with [facility]. You have an appointment scheduled to see her on , 10/29, at 10am.) Osmar Tanner MD [Surgeon] - (3-4 weeks; Call for an appointment when you are discharged from the hospital) Alicia Mendieta MD [Resident] - (follow up hospitalization, establish with PCP) PCP,SHANITA [Physician] - Diet: Carb Count or DM1 and Low Sodium (2gm) Fluids: 1500ml (6 cups) Addtl Attending Provider Instructions: You were admitted to [facility] from October 14 to October 19, 2020 due to generalized weakness and altered mental state. You were diagnosed with a staph infection in your blood. This was treated with intravenous antibiotics during your inpatient stay and on dicussion with infectious disease recommend a total of 6 weeks of antibiotics as prescribed from you negative culture on October 15. Suspect the source of the infection in a bone infection in your right foot. You were reviewed by orthopedics and recommended a walking boot and following up in 3-[address] Tanner (please call the number above for an appointment). You were also noted to have acute hypoxic respiratory failure. Suspect this was due to fluid overload due to your liver cirrhosis Regarding your alcoholic liver cirrhosis please follow up with gastroenterology. You have been started on Xifaxin and lactulose to help prevent hepatic encephalopathy (confusion from high ammonia). Nadolol started due to esophageal varices to prevent rupture of these. You were also noted to have severely uncontrolled diabetes with HbA1C 16.4 (goal is less than 7%). Recommend treatment of this with insulin and establishing with a primary care provider. The number for the [facility] above has been provided for a follow up appointment. Please see additional discharge instructions from our blade balancer. You have been started on a combination of Basaglar (long acting insulin) and Novolog (short acting insulin on discharge). Addtl Vallez Filter Operator Provider Instructions: Ice and elevate right foot as needed for pain/swelling. You may weight bear as tolerated right lower extremity Follow up with Diabetic Foot clinic for total contact cast or TRIBE boot Call if you have issues with pain/swelling, drainage, redness, warmth, fever or any other concerns. Follow up with Dr. Tanner in 3-4 weeks. Call [phone] with any questions and to schedule appointment. Pending Studies at Discharge: No Stand-Alone Forms: My [facility], Smoking Cessation Medications and DC Order Prescriptions: New spironolactone 25 mg Tablet 50 mg PO QAM Qty: 60 RF: 0 furosemide 20 mg Tablet 20 mg PO QAM Qty: 30 RF: 0 Xifaxan 550 mg Tablet 550 mg PO BID Qty: 30 RF: 0 lactulose 20 gram/30 mL solution 20 g PO TID Qty: 3000 RF: 0 magnesium oxide 400 mg (241.3 mg magnesium) Tablet 400 mg PO QAM Qty: 30 RF: 0 pantoprazole 40 mg Tablet,Delayed Release (Dr/Ec) 40 mg PO QAM Qty: 30 RF: 0 thiamine HCl (vitamin B1) [Vitamin B-1] 100 mg Tablet 100 mg PO QAM Qty: 30 RF: 0 folic acid 1 mg Tablet 1 mg PO QAM Qty: 30 RF: 0 insulin aspart U-100 [Novolog Flexpen U-100 Insulin] 100 unit/mL (3 mL) Insulin Pen See Rx Instructions .ROUTE .COMPLEX Qty: 15 RF: 0 Basaglar KwikPen U-100 Insulin 100 unit/mL (3 mL) insulin pen 34 unit subcut QAM Qty: 15 RF: 0 nadolol 20 mg tablet 20 mg PO DAILY Qty: 30 RF: 0 cefazolin 1 gram recon soln 2 g IV Q8H 37 Days RF: 0 Discontinued insulin aspart U-100 [Novolog U-100 Insulin aspart] 100 unit/mL Solution 1 sliding scale dose SUBCUT ACHS RF: 0 Discharge Orders: Discharge Order (Routine); Ordered 10/19/20 Ordered By: Alan Cronin/Other Patient Handouts: A1C, Long-Term Complications of Diabetes, Insulin How to Use and Where to Inject, Discharge Instructions Using ..., Diabetes: Meal Planning, Hypoglycemia Steps Admission Data Admit Date/Time: 10/14/20 00:30 Attending Provider: Alan Brewster Admit Provider: Mariusz Reese Primary Care Provider: Kimberlee Ireland Other Providers: Mariusz Reese ; Aleksandar Bailey ; Osmar Tanner ; Matthew Laguerre ; Temitope Ballesteros ; Jarocho Fernández I. ; Chad Baca II ; Manda Short ; Jesus Londono ; [facility] Healthcare Other Interventions: Discharge Summary Assessment (RN) Last Done: 10/19/20 15:44 Coding Level of Care Code D/C DAY MANAGEMENT >30 MINS Diagnoses Septicemia A41.9 Encephalopathy acute G93.40 Acute respiratory failure with hypoxia J96.01 UTI (urinary tract infection) N39.0 Diabetes mellitus E11.9 Epigastric pain R10.13 Abnormal x-ray R93.89 Hepatic encephalopathy K72.90 History of esophageal varices Z87.19 Alcoholic cirrhosis K70.30 Foot pain, right M79.671 Hypomagnesemia E83.42 Hypokalemia E87.6 History of alcohol abuse F10.11 Depression F32.9 Iron deficiency anemia D50.9 Charcot arthropathy of midfoot M14.679
--- NOTE | 2020-10-29 09:41 | Coding Query ---
SEPSIS There is documentation of Sepsis, Septicemia and Bacteremia. Please Specify below, in your clinical opinion. To promote full compliance with coding requirements relating to patient care, physician participation is requested in all cases of hospital cook uncertainty. Please assist us with the question(s) below: In responding to this query, please exercise your independent professional judgement. The fact that a question is asked does not imply that any particular answer is desired or expected. We appreciate your clarification on this issue. Throughout the medical record, you have clearly documented a localized infection and your patient has clinical evidence of a generalized sepsis or severe sepsis. The term urosepsis is a nonspecific entity and is coded as an UTI. If the patient has sepsis, severe sepsis, from an urinary source or some other source, please clarify in your response below. The medical record reflects the following clinical findings: (With dates as appropriate) (Body temperature of >38.3 C(101 F) or <36 C(96.8F), pulse >90/minute, respirations >20/minute, WBC count >12,000 or <4,000, altered mental status, significant edema or positive fluid balance, hyperglycemia without diabetes, hypotension, metabolic acidosis (elev. lactate level, anion gap or reduced blood pH), shock, positive blood culture (enter organism) ____ ()Bacteremia (Nonspecific laboratory finding of bacteria in the blood) Specify Organism () Present on Admission () Not present on admission () Unable to clinically determine (X) Septicemia (Systemic disease associated with the presence of pathogenic microorganisms in the blood): Specify Organism: Staph Aureus (MSSA) (X) Present on Admission () Not present on admission () Unable to clinically determine () Sepsis Specify Organism Specify Associated Condition/Diagnosis () Present on Admission () Not present on admission () Unable to clinically determine () Severe Sepsis (Sepsis associated with acute organ dysfunction) Specify Organism Specify Associated Condition/Diagnosis () Present on Admission () Not present on admission () Unable to clinically determine () Septic Shock (Severe sepsis with acute circulatory failure, unexplained by other causes) () Present on Admission () Not present on admission () Unable to clinically determine () Other, patient has: MTDD
--- NOTE | 2020-10-29 09:44 | Coding Query ---
CODING QUERY To promote full compliance with coding requirements relating to patient care, provider participation is requested in all cases of tile grinder uncertainty. Please assist us with the question(s) below: Coding Question(s): Pulmonary Edema is documented in the record and on Discharge Summary with the Discharge Summary documenting, "She was also hypoxic and diagnosed with respiratory failure due to pulmonary edema as suspect she hasn't been taking her medications for her liver cirrhosis. She was restarted on furosemide and spironolctone although onyl managing to tolerate half her usual prior dose". Please specify below in your clinical opinion, regarding Pulmonary Edema. ( X ) Acute Pulmonary Edema ( ) Chronic or Unspecified Pulmonary Edema ( ) Other Pulmonary Edema: Please Specify Physician's Response(s): Thank you Lena Emmanuel Principal Diagnosis: "that condition established after study, to be chiefly responsible for occasioning the admission of the patient to the hospital for care." Co-Existing Principal Diagnosis: "when two or more diagnoses equally meet the criteria for principal diagnosis as determined by the circumstances of admission, diagnostic work up, and/or therapy provided, and the Alphabetic Index, Tabular List, or another coding guideline does not provide sequencing direction, any one of the diagnoses may be sequenced first." "When the physician has documented what appears to be a current diagnosis in the body of the record, but has not included the diagnosis in the final diagnostic statement, the physician should be asked whether the diagnosis should be added." (Source Coding [facility] 2 QTR90. p3-4) LUIS
--- NOTE | 2020-10-29 09:47 | Coding Query ---
To promote full compliance with coding requirements relating to patient care, provider participation is requested in all cases of mid teacher uncertainty. Please assist us with the question(s) below: Coding Question(s): The diagnosis below was documented in the 10/15 Progress Note, then subsequently fell off all further documentation. Please indicate if it is still a possible diagnosis or ruled out. Physician's Response(s): POSSIBLE STAPHYLOCOCCUS PNEUMONIA ( ) Diagnosed and POA ( ) Diagnosed and not POA (X ) Ruled out ( ) Other (please specify) MTDD
== END 2020-10-19 17:52 | disposition home health service (06) | DRG 871 ==
LOC: ED 19:39 → 2S 10-14 00:30 → SUATTDRO 10-14 00:30 → 2S 10-14 01:21 → 3N 10-18 17:48
DX: T50.1X5A Adverse effect of loop [high-ceiling] diuretics, initial encounter; K80.20 Calculus of gallbladder without cholecystitis without obstruction; E10.628 Type 1 diabetes mellitus with other skin complications; E51.2 Wernicke's encephalopathy; E88.09 Other disorders of plasma-protein metabolism, not elsewhere classified; Z20.822 Contact with and (suspected) exposure to COVID-19; K70.30 Alcoholic cirrhosis of liver without ascites; K76.6 Portal hypertension; J81.0 Acute pulmonary edema; F10.11 Alcohol abuse, in remission; E10.610 Type 1 diabetes mellitus with diabetic neuropathic arthropathy; K72.00 Acute and subacute hepatic failure without coma; D50.9 Iron deficiency anemia, unspecified; A41.01 Sepsis due to Methicillin susceptible Staphylococcus aureus; E87.79 Other fluid overload; M86.471 Chronic osteomyelitis with draining sinus, right ankle and foot; K29.70 Gastritis, unspecified, without bleeding; Z86.16 Personal history of COVID-19; B95.4 Other streptococcus as the cause of diseases classified elsewhere; Z51.81 Encounter for therapeutic drug level monitoring; E10.65 Type 1 diabetes mellitus with hyperglycemia; L03.115 Cellulitis of right lower limb; N39.0 Urinary tract infection, site not specified; I85.10 Secondary esophageal varices without bleeding; E83.42 Hypomagnesemia; J96.01 Acute respiratory failure with hypoxia; G93.41 Metabolic encephalopathy; E87.6 Hypokalemia; F32.9 Major depressive disorder, single episode, unspecified; N28.1 Cyst of kidney, acquired; E10.69 Type 1 diabetes mellitus with other specified complication; N10 Acute pyelonephritis

== ENCOUNTER 2021-11-22 18:02 | Inpatient (IN) ==
[2021-11-22] MEDS ORDERED: CEFEPIME 2,000 MG/20 ML VIAL IV STA (18:36)
[2021-11-22 19:46] LABS: Hematocrit (blood only) 43.1 % (34.1-44.9); Hemoglobin 14.1 g/dl (12.0-16.0); Mean Corpuscular Hgb Conc 32.7 g/dL (32.0-36.0); Mean Corpuscular Volume 79.4 fL (80.0-100.0); RDW Coefficient of Variation 23.8 % (11.5-14.5); RDW Standard Deviation 66.8 fL (36.4-46.3); Red Blood Count 5.43 M/uL (3.93-5.22); White Blood Count 6.78 K/ul (4.8-10.8)
[2021-11-22 19:53] LABS: Platelet Count 124 K/uL (130-400)
--- NOTE | 2021-11-22 19:55 | XRay Report ---
XR chest 1V portable CLINICAL HISTORY: SEPSIS COMPARISON STUDY: Chest radiograph July 19, 2021. Chest CT October 15, 2020. FINDINGS: Lung volumes are normal. Lungs are clear. There is no pneumothorax or pleural effusion. Car diac size is normal. Mediastinal contours are normal. There is mild interstitial thickening, similar to prior exam. IMPRESSION: Interstitial thickening. Although similar to prior exam, this may reflect mild pulmonary edema. ACT 112: Negative or not required by law. Electronically signed by: Milton Mcintosh M.D. 11/22/2021 7:54 PM
[2021-11-22 19:58] LABS: INR 1.3 (0.9-1.1); Partial Thromboplastin Ratio 1.1; Partial Thromboplastin Time 31.2 Seconds (21.0-31.0); Prothrombin Time 13.8 Seconds (9.0-12.0)
[2021-11-22 20:05] LABS: Alanine Aminotransferase 15 U/L (7-52); Albumin Globulin Ratio 1.1 (0.9-2); Albumin Level 3.4 gm/dl (3.4-5.0); Alkaline Phosphatase 69 U/L (34-104); Anion Gap 7 (3-11); Aspartate Aminotransferase 24 U/L (13-39); BUN Creatinine Ratio 11.5 (10-20); Bilirubin,Total 1.3 mg/dl (0.2-1.0); Blood Urea Nitrogen 9 mg/dl (6-23); Calcium 8.5 mg/dl (8.5-10.1); Carbon Dioxide 24 mmol/L (21-32); Chloride 102 mmol/L (98-107); Est GFR (African American) 97.8 ml/min; Est GFR (Non-African American) 84.4 ml/min; Globulin 3.2 gm/dl (2.5-4.0); Glucose 217 mg/dl (70-99(Fasting)); Magnesium 1.6 mg/dl (1.7-2.4); Potassium 3.3 mmol/L (3.5-5.1); Sodium 133 mmol/L (136-145); Total Protein 6.6 gm/dl (6.0-8.3)
[2021-11-22 20:06] LABS: Anisocytosis Present; Basophils # (auto) 0.05 K/uL (0-0.2); Basophils % (auto) 0.7 %; Eosinophils # (auto) 0.08 K/uL (0-0.50); Eosinophils % (auto) 1.2 %; Immature Granulocytes # (auto) 0.02 K/uL (0.00-0.02); Immature Granulocytes % (auto) 0.3 %; Lymphocytes % (auto) 35.4 %; Monocytes # (auto) 0.76 K/uL (0.24-0.82); Monocytes % (auto) 11.2 %; Neutrophils # (auto) 3.47 K/uL (1.4-6.5); Neutrophils % (auto) 51.2 %
[2021-11-22 20:11] LABS: Troponin I High Sensitivity 5.3 pg/ml (0-14)
[2021-11-22] MEDS ORDERED: valACYclovir HCL 500 MG TABLET PO ONE (20:29)
--- NOTE | 2021-11-22 20:29 | Emergency Department Note ---
History of Present Illness General Chief complaint: Fever Stated complaint: FEVER, VOMITING Time Seen by Provider: 11/22/21 18:33 History of Present Illness 56-year-old female presents to the ED with a chief complaint of a fever. Her symptoms started on Monday. She reports some body aches as well as a little n ausea and vomiting. Her vomiting occurred Monday and Monday. She had about 6 episodes. The Tylenol seems to help her fever. She reports some cold sores that broke out in the left upper and lower lip in the past 24 hours.The patient does have a runny nose and a slight cough mostly in the evenings. Home Medications Medication Instructions Recorded Confirmed Type rifaximin 550 mg tablet (Xifaxan) 550 mg PO BID #60 tabs 12/21/20 08/25/21 Rx insulin aspart U-100 100 unit/mL 12 unit subcut TID 03/08/21 08/25/21 History (3 mL) subcutaneous pen (Novolog Flexpen U-100 Insulin aspart) lactulose 20 gram oral packet 20 g PO QAM PRN 03/08/21 08/25/21 History insulin glargine 100 unit/mL (3 50 unit (0.5 mL) subcut QAM #3 03/25/21 08/25/21 Rx mL) subcutaneous pen (Basaglar Boxes KwikPen U-100 Insulin) pen needle, diabetic 32 gauge x #400 ea 03/25/21 08/25/21 Rx 5/32" (BD Ultra-Fine Beatriz Pen Needle) folic acid 1 mg tablet 1 mg PO QAM #30 tabs 04/20/21 08/25/21 Rx furosemide 20 mg tablet 20 mg PO QAM #30 tabs 04/20/21 08/25/21 Rx nadolol 20 mg tablet 20 mg PO QAM #90 tabs 04/20/21 08/25/21 Rx spironolactone 25 mg tablet 50 mg PO QAM #60 tabs 04/20/21 08/25/21 Rx pantoprazole 40 mg tablet,delayed 40 mg PO QAM #30 tabs 07/16/21 08/25/21 Rx release semaglutide 0.25 mg or 0.5 mg (2 0.25 mg (0.2 mL) subcut Q7D #1.5 mL 08/20/21 08/25/21 Rx mg/1.5 mL) subcutaneous pen injector (Ozempic) flash glucose sensor (FreeStyle #7 ea 08/27/21 Rx Cyndi 2 Sensor kit) sertraline 100 mg tablet 150 mg PO DAILY #45 tabs 09/21/21 Rx thiamine HCl (vitamin B1) 100 mg 100 mg PO QAM #30 tabs 09/21/21 Rx tablet (Vitamin B-1) magnesium oxide 400 mg (241.3 mg 400 mg PO QAM #90 tabs 11/01/21 Rx magnesium) tablet Allergies Allergy/AdvReac Type Severity Reaction Status Date / Time No Known Allergies Allergy Verified 08/25/21 16:07 Past Med/Surg History Medical History Anxiety Depression Diabetes type 2, uncontrolled Encephalopathy acute (~09/2020) inpatient [facility] H/O esophageal varices with banding Hepatic encephalopathy History of alcohol abuse History of COVID-07 July 2019 at [facility] in [place], [place]. severe fatigue, dry cough, fever. no hospitalization. History of osteomyelitis Hypokalemia Hypomagnesemia Iron deficiency anemia PICC (peripherally inserted central catheter) in place Sepsis (~09/2020) hospitalized in [facility] Splenic artery aneurysm (~09/2019) with "coil" embolization treated at [facility] ([place], [place]) Surgical History H/O oral surgery H/O vascular surgery coil embolization of splenic artery aneurysm. History of colonoscopy History of esophagogastroduodenoscopy (EGD) History of incision and drainage (~2019) above buttock area. S/P PICC central line placement S/P wisdom tooth extraction Family History Mother Diabetes Father Pulmonary embolism Other No family history of adverse response to anesthesia Denies family history of Ovarian cancer Prostate cancer Myocardial infarction Breast cancer Colorectal cancer Social History Smoking Status: Never smoker Second Hand Exposure: No; Hx Alcohol Use: No (quit 03/2020) Hx Substance Use: No Preferred Language: Fijian Communication Ability: Effective Visual Impairment: No Limitations Hearing Ability: Normal Management Consulting Required: No Beliefs That Will Affect Care: None marital status: Current Living Situation: Spouse Current Living Situation Comment: lives at home with current occupational status: retired How many Children do You have: 3 Feels Safe at Home: Yes Childhood Exposure to Second-Hand Smoke: Yes Dental Care, Regularly: No Physical Activity Frequency: Does not Exercise Seatbelt Use: always Sunscreen Use: Yes Assistive Devices: Glasses and Special Shoe Review of Systems A total of 10 systems reviewed and were otherwise negative Physical Exam Vital Signs Vital Signs - 24 hr 11/22/21 18:08 11/22/21 19:02 11/22/21 19:02 Temperature 37.6 C H Temperature Source Oral Pulse Rate 101 H Pulse Rate from SpO2 Sensor Respiratory Rate 18 Respiratory Effort / Characteristics Non-Labored Spontaneous Non-Labored Respiratory Depth Normal Normal Respiratory Pattern Regular Blood Pressure 113/77 Blood Pressure Mean 89 Blood Pressure Position Sitting Pulse Oximetry 81 L 85 L 85 L Oxygen Delivery Method Room Air Room Air Room Air Oxygen Flow Rate 2 Sepsis Recent Fever Within 48 Hours Yes Sepsis New/Unexplained Change in Mental Status No Sepsis Action Taken by Nursing No Action Required 11/22/21 19:02 11/22/21 19:07 11/22/21 19:02 Temperature Temperature Source Pulse Rate Pulse Rate from SpO2 Sensor Respiratory Rate Respiratory Effort / Characteristics Non-Labored Respiratory Depth Normal Respiratory Pattern Blood Pressure Blood Pressure Mean Blood Pressure Position Pulse Oximetry 85 L 95 Oxygen Delivery Method Room Air Nasal Cannula Oxygen Flow Rate 2 2 Sepsis Recent Fever Within 48 Hours Sepsis New/Unexplained Change in Mental Status Sepsis Action Taken by Nursing 11/22/21 20:00 11/22/21 20:45 11/22/21 20:30 Temperature Temperature Source Pulse Rate Pulse Rate from SpO2 Sensor Respiratory Rate Respiratory Effort / Characteristics Non-Labored Spontaneous Non-Labored Respiratory Depth Normal Respiratory Pattern Blood Pressure Blood Pressure Mean Blood Pressure Position Pulse Oximetry Oxygen Delivery Method Room Air Nasal Cannula Oxygen Flow Rate Sepsis Recent Fever Within 48 Hours Sepsis New/Unexplained Change in Mental Status Sepsis Action Taken by Nursing 11/22/21 18:16 11/22/21 18:20 11/22/21 18:30 Temperature Temperature Source Pulse Rate 76 80 Pulse Rate from SpO2 Sensor 76 70 Respiratory Rate 14 19 Respiratory Effort / Characteristics Respiratory Depth Respiratory Pattern Blood Pressure 104/66 Blood Pressure Mean 78 Blood Pressure Position Pulse Oximetry 97 94 Oxygen Delivery Method Oxygen Flow Rate Sepsis Recent Fever Within 48 Hours Sepsis New/Unexplained Change in Mental Status Sepsis Action Taken by Nursing 11/22/21 18:30 11/22/21 18:40 11/22/21 18:50 Temperature Temperature Source Pulse Rate 77 75 71 Pulse Rate from SpO2 Sensor 76 74 72 Respiratory Rate 12 18 15 Respiratory Effort / Characteristics Respiratory Depth Respiratory Pattern Blood Pressure Blood Pressure Mean Blood Pressure Position Pulse Oximetry 97 97 98 Oxygen Delivery Method Oxygen Flow Rate Sepsis Recent Fever Within 48 Hours Sepsis New/Unexplained Change in Mental Status Sepsis Action Taken by Nursing 11/22/21 19:00 11/22/21 19:00 11/22/21 19:10 Temperature Temperature Source Pulse Rate 82 75 Pulse Rate from SpO2 Sensor 83 75 Respiratory Rate 12 13 Respiratory Effort / Characteristics Respiratory Depth Respiratory Pattern Blood Pressure 104/60 Blood Pressure Mean 74 Blood Pressure Position Pulse Oximetry 91 95 Oxygen Delivery Method Oxygen Flow Rate Sepsis Recent Fever Within 48 Hours Sepsis New/Unexplained Change in Mental Status Sepsis Action Taken by Nursing 11/22/21 19:20 11/22/21 19:30 11/22/21 19:32 Temperature Temperature Source Pulse Rate 77 77 76 Pulse Rate from SpO2 Sensor 77 78 76 Respiratory Rate 13 23 16 Respiratory Effort / Characteristics Respiratory Depth Respiratory Pattern Blood Pressure Blood Pressure Mean Blood Pressure Position Pulse Oximetry 96 96 97 Oxygen Delivery Method Oxygen Flow Rate Sepsis Recent Fever Within 48 Hours Sepsis New/Unexplained Change in Mental Status Sepsis Action Taken by Nursing 11/22/21 19:32 11/22/21 19:40 11/22/21 19:50 Temperature Temperature Source Pulse Rate 85 85 Pulse Rate from SpO2 Sensor 84 83 Respiratory Rate 16 20 Respiratory Effort / Characteristics Respiratory Depth Respiratory Pattern Blood Pressure 111/67 Blood Pressure Mean 81 Blood Pressure Position Pulse Oximetry 96 97 Oxygen Delivery Method Oxygen Flow Rate Sepsis Recent Fever Within 48 Hours Sepsis New/Unexplained Change in Mental Status Sepsis Action Taken by Nursing 11/22/21 20:00 11/22/21 20:00 11/22/21 20:10 Temperature Temperature Source Pulse Rate 80 84 Pulse Rate from SpO2 Sensor 80 83 Respiratory Rate 18 19 Respiratory Effort / Characteristics Respiratory Depth Respiratory Pattern Blood Pressure 140/71 Blood Pressure Mean 94 Blood Pressure Position Pulse Oximetry 98 98 Oxygen Delivery Method Oxygen Flow Rate Sepsis Recent Fever Within 48 Hours Sepsis New/Unexplained Change in Mental Status Sepsis Action Taken by Nursing 11/22/21 20:20 11/22/21 20:30 11/22/21 20:30 Temperature Temperature Source Pulse Rate 85 99 H Pulse Rate from SpO2 Sensor 86 98 H Respiratory Rate 16 22 Respiratory Effort / Characteristics Respiratory Depth Respiratory Pattern Blood Pressure 136/82 Blood Pressure Mean 100 Blood Pressure Position Pulse Oximetry 95 92 Oxygen Delivery Method Oxygen Flow Rate Sepsis Recent Fever Within 48 Hours Sepsis New/Unexplained Change in Mental Status Sepsis Action Taken by Nursing 11/22/21 20:40 11/22/21 20:50 11/22/21 21:00 Temperature Temperature Source Pulse Rate 85 85 Pulse Rate from SpO2 Sensor 85 86 Respiratory Rate 15 20 Respiratory Effort / Characteristics Non-Labored Spontaneous Respiratory Depth Respiratory Pattern Blood Pressure Blood Pressure Mean Blood Pressure Position Pulse Oximetry 96 95 Oxygen Delivery Method Oxygen Flow Rate Sepsis Recent Fever Within 48 Hours Sepsis New/Unexplained Change in Mental Status Sepsis Action Taken by Nursing 11/22/21 21:00 11/22/21 21:00 11/22/21 22:00 Temperature Temperature Source Pulse Rate Pulse Rate from SpO2 Sensor Respiratory Rate Respiratory Effort / Characteristics Non-Labored Non-Labored Spontaneous Non-Labored Respiratory Depth Normal Normal Normal Respiratory Pattern Blood Pressure Blood Pressure Mean Blood Pressure Position Pulse Oximetry Oxygen Delivery Method Oxygen Flow Rate Sepsis Recent Fever Within 48 Hours Sepsis New/Unexplained Change in Mental Status Sepsis Action Taken by Nursing 11/22/21 22:00 11/22/21 22:15 11/22/21 22:30 Temperature Temperature Source Pulse Rate Pulse Rate from SpO2 Sensor Respiratory Rate Respiratory Effort / Characteristics Non-Labored Spontaneous Non-Labored Non-Labored Respiratory Depth Normal Normal Respiratory Pattern Blood Pressure Blood Pressure Mean Blood Pressure Position Pulse Oximetry 93 Oxygen Delivery Method Nasal Cannula Nasal Cannula Oxygen Flow Rate 3 3 Sepsis Recent Fever Within 48 Hours Sepsis New/Unexplained Change in Mental Status Sepsis Action Taken by Nursing 11/22/21 22:30 11/22/21 22:45 Temperature Temperature Source Pulse Rate Pulse Rate from SpO2 Sensor Respiratory Rate Respiratory Effort / Characteristics Non-Labored Respiratory Depth Normal Respiratory Pattern Blood Pressure Blood Pressure Mean Blood Pressure Position Pulse Oximetry 93 94 Oxygen Delivery Method Nasal Cannula Nasal Cannula Oxygen Flow Rate 4 4 Sepsis Recent Fever Within 48 Hours Sepsis New/Unexplained Change in Mental Status Sepsis Action Taken by Nursing CONSTITUTIONAL/VITAL SIGNS: Reviewed / noted above. GENERAL: Non-toxic in appearance. INTEGUMENTARY: Warm, dry, and [place]. HEAD: Normocephalic. EYES: without scleral icterus or trauma. ENT/OROPHARYNX: clear and moist. LYMPHADENOPATHY/NECK: Is supple without lymphadenopathy or meningismus. RESPIRATORY: Clear to auscultation bilaterally. No increased work of breathing. CARDIOVASCULAR: Regular rate and rhythm. GI/ABDOMEN: Soft and nontender. No organomegaly or pulsatile mass. EXTREMITIES: Warm and well perfused. BACK: No CVA tenderness. NEUROLOGICAL: Intact without focal deficits. PSYCHIATRIC: normal affect. MUSCULOSKELETAL: Normally developed with good muscle tone. TRIAGE NURSING DOCUMENTATION REVIEWED. Course Administered Medications Discontinued Medications Albuterol (Albut/Ipratrop 3mg/0.5mg Neb 3 Ml Vial) 3 ml NEB NOW STA; Protocol Stop: 11/22/21 22:17 Last Admin: 11/22/21 22:26 Dose: 3 ml Documented By: ALAN Cefepime HCl (Maxipime) 2,000 mg in 20 mls @ 5 mls/min IV NOW STA; Protocol Stop: 11/22/21 18:39 Last Admin: 11/22/21 19:36 Dose: 5 mls/min Documented By: ALAN Ioversol (Optiray 300 500ml) 120 ml IV ONCE ONE Stop: 11/22/21 21:05 Last Admin: 11/22/21 21:07 Dose: 120 ml Documented By: JENNIFER Ondansetron HCl (Ondansetron Inj 2 Mg/Ml 2 Ml Vial) 4 mg IV NOW STA Stop: 11/22/21 22:32 Last Admin: 11/22/21 22:38 Dose: 4 mg Documented By: ALAN Valacyclovir HCl (Valacyclovir Hcl 500 Mg Tablet) 2,000 mg PO NOW ONE Stop: 11/22/21 20:30 Last Admin: 11/22/21 21:15 Dose: 2,000 mg Documented By: ALAN Medical Decision Making Differential Diagnosis Differential includes viral illness, influenza, streptococcal pharyngitis, meningitis, pneumonia, sinusitis, UTI, pyelonephritis, otitis media. Medical Records Attestation: I reviewed the patient's medical records. Home Medications Current Medication List: was personally reviewed by me Laboratory Data Attestation: I reviewed the patient's lab results. Result diagrams: 11/22/21 19:15 11/22/21 19:15 Lab Results 11/22/21 11/22/21 11/22/21 Range/Units 19:07 19:15 19:15 WBC 6.78 (4.8-10.8) K/ul RBC 5.43 H (3.93-5.22) M/uL Hgb 14.1 (12.0-16.0) g/dl Hct 43.1 (34.1-44.9) % MCV 79.4 L (80.0-100.0) fL MCH 26.0 (25.0-34.0) pg MCHC 32.7 (32.0-36.0) g/dL RDW Std Deviation 66.8 H (36.4-46.3) fL RDW Coeff of Jeremie 23.8 H (11.5-14.5) % Plt Count 124 L (130-400) K/uL Immature Gran % (Auto) 0.3 % Neut % (Auto) 51.2 % Lymph % (Auto) 35.4 % [place] % (Auto) 11.2 % Eos % (Auto) 1.2 % Baso % (Auto) 0.7 % Neut # (Auto) 3.47 (1.4-6.5) K/uL Lymph # (Auto) 2.40 (1.2-3.4) K/uL [place] # (Auto) 0.76 (0.24-0.82) K/uL Eos # (Auto) 0.08 (0-0.50) K/uL Baso # (Auto) 0.05 (0-0.2) K/uL Immature Gran # (Auto) 0.02 (0.00-0.02) K/uL Anisocytosis Present PT 13.8 H (9.0-12.0) Seconds INR 1.3 H (0.9-1.1) APTT 31.2 H (21.0-31.0) Seconds PTT Ratio 1.1 Sodium (136-145) mmol/L Potassium (3.5-5.1) mmol/L Chloride (98-107) mmol/L Carbon Dioxide (21-32) mmol/L Anion Gap (3-11) BUN (6-23) mg/dl Creatinine (0.6-1.2) mg/dl Est Cr Clr Drug Dosing Est GFR ( Amer) ml/min Est GFR (Non-Af Amer) ml/min BUN/Creatinine Ratio (10-20) Glucose (70-99(Fasting)) mg/dl Lactate 1.3 (0.4-2.0) mmol/L Calcium (8.5-10.1) mg/dl Magnesium (1.7-2.4) mg/dl Total Bilirubin (0.2-1.0) mg/dl AST (13-39) U/L ALT (7-52) U/L Alkaline Phosphatase (34-104) U/L Troponin I High Sens (0-14) pg/ml Total Protein (6.0-8.3) gm/dl Albumin (3.4-5.0) gm/dl Globulin (2.5-4.0) gm/dl Albumin/Globulin Ratio (0.9-2) Urine Color Urine Appearance (Clear) Urine pH (4.5-7.5) Ur Specific [place] (1.000-1.030) Urine Protein (Negative) Urine Glucose (UA) (Negative) Urine Ketones (Negative) Urine Blood (Negative) Urine Nitrite (Negative) Urine Bilirubin (Negative) Urine Urobilinogen (Negative) Ur Leukocyte Esterase (Negative) Urine WBC (Auto) (0-5) /hpf Urine RBC (Auto) (0-4) /hpf U Hyaline Cast (Auto) (0-5) /lpf U Epithel Cells (Auto) (0-5) /lpf Urine Bacteria (Auto) (Negative) Adenovirus (PCR) (NotDetected) B. pertussis DNA (PCR) (NotDetected) B.parapertussis DNA PCR (NotDetected) C. pneumoniae DNA (PCR) (NotDetected) Coronavirus OC43 (PCR) (NotDetected) Coronavirus HKU1 (PCR) (NotDetected) Coronavirus 229E (PCR) (NotDetected) SARS-CoV-2 (PCR) (NotDetected) Coronavirus NL63 (PCR) (NotDetected) Human Metapneumovir PCR (NotDetected) Influenza Type A (PCR) (NotDetected) Influenza Type B (PCR) (NotDetected) M. pneumoniae (PCR) (NotDetected) Parainfluenza 1 (PCR) (NotDetected) Parainfluenza 2 (PCR) (NotDetected) Parainfluenza 3 (PCR) (NotDetected) Parainfluenza 4 (PCR) (NotDetected) RSV (PCR) (NotDetected) Entero/Rhino (PCR) (NotDetected) 11/22/21 11/22/21 11/22/21 Range/Units 19:15 19:15 21:20 WBC (4.8-10.8) K/ul RBC (3.93-5.22) M/uL Hgb (12.0-16.0) g/dl Hct (34.1-44.9) % MCV (80.0-100.0) fL MCH (25.0-34.0) pg MCHC (32.0-36.0) g/dL RDW Std Deviation (36.4-46.3) fL RDW Coeff of Jeremie (11.5-14.5) % Plt Count (130-400) K/uL Immature Gran % (Auto) % Neut % (Auto) % Lymph % (Auto) % [place] % (Auto) % Eos % (Auto) % Baso % (Auto) % Neut # (Auto) (1.4-6.5) K/uL Lymph # (Auto) (1.2-3.4) K/uL [place] # (Auto) (0.24-0.82) K/uL Eos # (Auto) (0-0.50) K/uL Baso # (Auto) (0-0.2) K/uL Immature Gran # (Auto) (0.00-0.02) K/uL Anisocytosis PT (9.0-12.0) Seconds INR (0.9-1.1) APTT (21.0-31.0) Seconds PTT Ratio Sodium 133 L (136-145) mmol/L Potassium 3.3 L (3.5-5.1) mmol/L Chloride 102 (98-107) mmol/L Carbon Dioxide 24 (21-32) mmol/L Anion Gap 7 (3-11) BUN 9 (6-23) mg/dl Creatinine 0.78 (0.6-1.2) mg/dl Est Cr Clr Drug Dosing Not Reportable Est GFR ( Amer) 97.8 ml/min Est GFR (Non-Af Amer) 84.4 ml/min BUN/Creatinine Ratio 11.5 (10-20) Glucose 217 H (70-99(Fasting)) mg/dl Lactate (0.4-2.0) mmol/L Calcium 8.5 (8.5-10.1) mg/dl Magnesium 1.6 L (1.7-2.4) mg/dl Total Bilirubin 1.3 H (0.2-1.0) mg/dl AST 24 (13-39) U/L ALT 15 (7-52) U/L Alkaline Phosphatase 69 (34-104) U/L Troponin I High Sens 5.3 (0-14) pg/ml Total Protein 6.6 (6.0-8.3) gm/dl Albumin 3.4 (3.4-5.0) gm/dl Globulin 3.2 (2.5-4.0) gm/dl Albumin/Globulin Ratio 1.1 (0.9-2) Urine Color Yellow Urine Appearance Cloudy A (Clear) Urine pH 6.5 (4.5-7.5) Ur Specific [place] 1.023 (1.000-1.030) Urine Protein Trace H (Negative) Urine Glucose (UA) Negative (Negative) Urine Ketones Negative (Negative) Urine Blood 1+ H (Negative) Urine Nitrite Positive A (Negative) Urine Bilirubin Negative (Negative) Urine Urobilinogen Negative (Negative) Ur Leukocyte Esterase 3+ H (Negative) Urine WBC (Auto) >30 H (0-5) /hpf Urine RBC (Auto) 0-4 (0-4) /hpf U Hyaline Cast (Auto) 1-5 (0-5) /lpf U Epithel Cells (Auto) >30 H (0-5) /lpf Urine Bacteria (Auto) Negative (Negative) Adenovirus (PCR) Not Detected (NotDetected) B. pertussis DNA (PCR) Not Detected (NotDetected) B.parapertussis DNA PCR Not Detected (NotDetected) C. pneumoniae DNA (PCR) Not Detected (NotDetected) Coronavirus OC43 (PCR) Not Detected (NotDetected) Coronavirus HKU1 (PCR) Not Detected (NotDetected) Coronavirus 229E (PCR) Not Detected (NotDetected) SARS-CoV-2 (PCR) Not Detected (NotDetected) Coronavirus NL63 (PCR) Not Detected (NotDetected) Human Metapneumovir PCR Not Detected (NotDetected) Influenza Type A (PCR) Not Detected (NotDetected) Influenza Type B (PCR) Not Detected (NotDetected) M. pneumoniae (PCR) Not Detected (NotDetected) Parainfluenza 1 (PCR) Not Detected (NotDetected) Parainfluenza 2 (PCR) Not Detected (NotDetected) Parainfluenza 3 (PCR) Not Detected (NotDetected) Parainfluenza 4 (PCR) Not Detected (NotDetected) RSV (PCR) Not Detected (NotDetected) Entero/Rhino (PCR) Not Detected (NotDetected) Imaging Data Radiologist's Impression: Chest X-Ray 11/22/21 18:37 XR chest 1V portable CLINICAL HISTORY: SEPSIS COMPARISON STUDY: Chest radiograph July 19, 2021. Chest CT October 15, 2020. FINDINGS: Lung volumes are normal. Lungs are clear. There is no pneumothorax or pleural effusion. Cardiac size is normal. Mediastinal contours are normal. There is mild interstitial thickening, similar to prior exam. IMPRESSION: Interstitial thickening. Although similar to prior exam, this may reflect mild pulmonary edema. ACT 112: Negative or not required by law. Electronically signed by: Milton Mcintosh M.D. 11/22/2021 7:[address] scan of the chest: Per the radiologist there is no PE. Heart is not enlarged. No infiltrate. ECG Data Attestation: I personally reviewed and interpreted this ECG as follows: Additional Comments: Twelve-lead EKG: Per my interpretation shows a normal sinus rhythm at a rate of 77. No ST elevation. No PVCs. Normal QTC. MDM Narrative 56-year-old female presents with the above symptoms consisting mostly of a fever, body aches, some nausea and vomiting as well as cold sores, slight cough and runny nose. Vital signs in triage reveal hypoxia with a saturation of 81%. We are unable to reproduce this in the patient's room. She is able to maintain saturations in the low 90s if she is taking deep breaths but otherwise if she is resting she dropped about 85 or 86%. She denies any shortness of breath. Lungs are clear. Twelve-lead EKG shows a sinus rhythm. CBC was unremarkable chemistry panel was unremarkable. Troponin is negative. Lactic acid is nega tive. Chest x-ray shows no acute disease versus some chronic interstitial changes. Clinically this is not pulmonary edema. CT scan of the chest is negative for PE or other acute abnormality. Because of the patient's persistent hypoxia when she is off of oxygen, desaturating down to 83%, the patient will be seen by the hospitalist for further evaluation and care. She was given a dose of Valtrex here for her cold sore was also empirically given IV cefepime as well as a nebulizer treatment and IV Zofran for vomiting here. The patient's oxygen saturations improved to about 97% on 2 L of oxygen. Impression & Plan Hypoxemia, Nausea & vomiting, Cold sore, Acute viral syndrome, UTI (urinary tract infection) Discharge Plan Visit Data Chief Complaint: Fever Stated Complaint: FEVER, VOMITING ED Provider: Napoleon Coe Discharge Problem: Hypoxemia, Nausea & vomiting, Cold sore, Acute viral syndrome, UTI (urinary tract infection) Patient Disposition: Being Evaluated by Hospitalist Forms Stand Alone Forms: [facility] Prescriptions Prescriptions: No Action Xifaxan 550 mg tablet 550 mg PO BID Qty: 60 5RF spironolactone 25 mg tablet 50 mg PO QAM Qty: 60 5RF furosemide 20 mg tablet 20 mg PO QAM Qty: 30 5RF folic acid 1 mg tablet 1 mg PO QAM Qty: 30 5RF nadolol 20 mg tablet 20 mg PO QAM Qty: 90 1RF pantoprazole 40 mg tablet,delayed release (DR/EC) 40 mg PO QAM Qty: 30 5RF (DME) FreeStyle Cyndi 2 Sensor Kit See Rx Instructions .Route Qty: 7 3RF Rx Instructions: Change every 14 days thiamine HCl (vitamin B1) [Vitamin B-1] 100 mg tablet 100 mg PO QAM Qty: 30 5RF sertraline 100 mg tablet 150 mg PO DAILY Qty: 45 5RF magnesium oxide 400 mg (241.3 mg magnesium) tablet 400 mg PO QAM Qty: 90 4RF (DME) pen needle, diabetic [BD Ultra-Fine Beatriz Pen Needle] 32 gauge x 5/32" needle See Rx Instructions .Route Qty: 400 3RF Rx Instructions: Use a new pen needle 4x a day Basaglar KwikPen U-100 Insulin 100 unit/mL (3 mL) insulin pen 50 unit subcut QAM Qty: 3 3RF Ozempic 0.25 mg or 0.5 mg(2 mg/1.5 mL) pen injector 0.25 mg subcut Q7D Qty: 1.5 3RF insulin aspart U-100 [Novolog Flexpen U-100 Insulin] 100 unit/mL (3 mL) insulin pen 12 unit subcut TID Rx Instructions: 12 units before each meal, Extra 4 units for every 50mg/dL glucose above 150 mg/dL, if above 400 call PCP lactulose 20 gram packet 20 g PO QAM PRN Referrals Referrals: Kimberlee Ireland MD [Primary Care Provider] -
[2021-11-22 20:40] LABS: Adenovirus PCR Not Detected (NotDetected); Bordetella parapertussis PCR Not Detected (NotDetected); Bordetella pertussis PCR Not Detected (NotDetected); Chlamydia pneumoniae PCR Not Detected (NotDetected); Coronavirus 229E PCR Not Detected (NotDetected); Coronavirus CoV-2 (COVID19)PCR Not Detected (NotDetected); Coronavirus HKU1 PCR Not Detected (NotDetected); Coronavirus NL63 PCR Not Detected (NotDetected); Coronavirus OC43PCR Not Detected (NotDetected); Human Metapneumovirus PCR Not Detected (NotDetected); Influenza A PCR Not Detected (NotDetected); Influenza B PCR Not Detected (NotDetected); Mycoplasma pneumoniae PCR Not Detected (NotDetected); Parainfluenza Virus 1 PCR Not Detected (NotDetected); Parainfluenza Virus 2 PCR Not Detected (NotDetected); Parainfluenza Virus 3 PCR Not Detected (NotDetected); Parainfluenza Virus 4 PCR Not Detected (NotDetected); Respiratory Syncytial VirusPCR Not Detected (NotDetected); Rhinovirus/Enterovirus PCR Not Detected (NotDetected)
[2021-11-22] MEDS ORDERED: OPTIRAY 300 500mL IV ONE (21:04)
[2021-11-22] MEDS ORDERED: ALBUT/IPRATROP 3MG/0.5MG NEB 3 ML VIAL NEB STA (22:16)
[2021-11-22] MEDS ORDERED: ONDANSETRON INJ 2 MG/ML 2 ML VIAL IV STA (22:31)
[2021-11-22 22:38] LABS: Appearance Urine Cloudy (Clear); Bacteria Urine Automated Negative (Negative); Bilirubin Urine Negative (Negative); Blood Urine 1+ (Negative); Color Urine Yellow; Epithelial Cell Urine Auto >30 /lpf (0-5); Glucose Urine UA Negative (Negative); Ketones Urine Negative (Negative); Leukocyte Esterase Urine 3+ (Negative); Nitrite Urine Positive (Negative); Protein Urine Trace (Negative); RBC Urine Automated 0-4 /hpf (0-4); Specific Gravity Urine 1.023 (1.000-1.030); Urobilinogen Urine Negative (Negative); WBC Urine Automated >30 /hpf (0-5); pH Urine 6.5 (4.5-7.5)
--- NOTE | 2021-11-22 23:49 | History & Physical Report ---
Date of Service November 22, 2021 Assessment & Plan (1) Hypoxemia: Plan: 56yo female presenting with febrile illness. Hypoxic on room air ranging 79 - 85%, improved with supplemental O2, presently 95% on 5L. Patient denies feeling short of breath. Has had some chest tightness, cough and wheezing. No history of asthma or lung disease. No evidence of volume overload or pulmonary edema. No PE or consolidation noted on imaging per STAT-rad reading. -Check BNP -Check PO4 -Check Procalcitonin -Check ABG -Check LDH -Continue supplemental O2 -Albuterol PRN -Consider echo (2) Acute viral syndrome: Plan: Etiology uncertain. Respiratory viral panel is NEGATIVE. Patient denies recent tick bites but reports her has had multiple ticks on him over the summer. They also have three dogs in the home. -Check Lyme, Anaplasmosis and Babesiosis (3) UTI (urinary tract infection): Plan: UA suggestive of infection -Follow culture -Ceftriaxone 2gm IV daily (4) History of alcohol abuse: Plan: Patient no longer drinks. She has history of liver cirrhosis, esophageal varices and metabolic encephalopathy. Cirrhosis appears to be compensated at this time. -Continue Thiamine 100mg po qAM and Folic Acid 1mg po daily -Continue Lasix 20mg po qAM -Continue Spironolactone 50mg po qAM -Continue Rifaximin 550mg po BID -Continue nadolol 20mg po daily -Continue Lactulose 20mg po qAM PRN constipation (5) Depression: Plan: Chronic -Continue Sertraline 150mg po daily (6) Diabetes type 2, uncontrolled: Plan: Chronic. Last HgbA1C = 9 on 03/25/21 -Continue Lantus 20u BID -ISS -Goal blood sugar 110 - 140 (7) Alcoholic cirrhosis of liver: Plan: Appears to be compensated management as above History of Present Illness Chief Complaint: fever, hypoxia Primary Care Provider: Kimberlee Ireland MD Hilary Gutiérrez is a 56yo female with history of liver cirrhosis with esophageal varices, diabetes and anxiety presenting with fever and hypoxia. Patient reports fever ongoing for the last 4 days with associated body aches. Fever to 102, relieved temporarily with Tylenol. Also with nausea and vomiting x 1 day. She has had poor appetite with decreased oral intake. She has had some chest tightness as well as non-productive cough and wheezing. She woke this AM with cold sores on her upper and lower lips. She has had cold sores in the past but never as bad. Patient denies chest pain, palpitations. Denies abdominal pain, diarrhea, rash. Patient denies weight gain, edema, orthopnea. Denies runny nose, watery eyes, sneezing. Patient denies sick contacts, recent travel. Denies change in medication. Patient hypoxic in room air to 81%. She was placed on supplemental oxygen in the ER with improvement in saturation. Upon removal of her supplemental O2 she was again hypoxic ranging 79% - 85%. Presently she is 95% on 5L ER Course: Valtrex, Albuterol, Cefepime, Zofran Allergies Allergy/AdvReac Type Severity Reaction Status Date / Time No Known Allergies Allergy Verified 11/22/21 23:55 Home Medications Medication Instructions Recorded Confirmed Type rifaximin 550 mg tablet (Xifaxan) 550 mg PO BID #60 tabs 12/21/20 11/22/21 Rx insulin aspart U-100 100 unit/mL 10 unit subcut WM 03/08/21 11/22/21 History (3 mL) subcutaneous pen (Novolog Flexpen U-100 Insulin aspart) insulin glargine 100 unit/mL (3 50 unit (0.5 mL) subcut QAM #3 03/25/21 11/22/21 Rx mL) subcutaneous pen (Basaglar Boxes KwikPen U-100 Insulin) pen needle, diabetic 32 gauge x #400 ea 03/25/21 11/22/21 Rx 5/32" (BD Ultra-Fine Beatriz Pen Needle) folic acid 1 mg tablet 1 mg PO QAM #30 tabs 04/20/21 11/22/21 Rx furosemide 20 mg tablet 20 mg PO QAM #30 tabs 04/20/21 11/22/21 Rx nadolol 20 mg tablet 20 mg PO QAM #90 tabs 04/20/21 11/22/21 Rx spironolactone 25 mg tablet 50 mg PO QAM #60 tabs 04/20/21 11/22/21 Rx pantoprazole 40 mg tablet,delayed 40 mg PO QAM #30 tabs 07/16/21 11/22/21 Rx release semaglutide 0.25 mg or 0.5 mg (2 0.25 mg (0.2 mL) subcut Q7D #1.5 mL 08/20/21 11/22/21 Rx mg/1.5 mL) subcutaneous pen injector (Ozempic) flash glucose sensor (FreeStyle #7 ea 08/27/21 11/22/21 Rx Cyndi 2 Sensor kit) sertraline 100 mg tablet 150 mg PO DAILY #45 tabs 09/21/21 11/22/21 Rx thiamine HCl (vitamin B1) 100 mg 100 mg PO QAM #30 tabs 09/21/21 11/22/21 Rx tablet (Vitamin B-1) magnesium oxide 400 mg (241.3 mg 400 mg PO QAM #90 tabs 11/01/21 11/22/21 Rx magnesium) tablet Past Med/Surg History Medical History Anxiety Depression Diabetes type 2, uncontrolled Encephalopathy acute (~09/2020) inpatient [facility] H/O esophageal varices with banding Hepatic encephalopathy History of alcohol abuse History of COVID-07 July 2019 at [facility] in [place], [place]. severe fatigue, dry cough, fever. no hospitalization. History of osteomyelitis Hypokalemia Hypomagnesemia Iron deficiency anemia PICC (peripherally inserted central catheter) in place Sepsis (~09/2020) hospitalized in [facility] Splenic artery aneurysm (~09/2019) with "coil" embolization treated at [facility] ([place], [place]) Surgical History H/O oral surgery H/O vascular surgery coil embolization of splenic artery aneurysm. History of colonoscopy History of esophagogastroduodenoscopy (EGD) History of incision and drainage (~2019) above buttock area. S/P PICC central line placement S/P wisdom tooth extraction Family History Mother Diabetes Father Pulmonary embolism Other No family history of adverse response to anesthesia Denies family history of Ovarian cancer Prostate cancer Myocardial infarction Breast cancer Colorectal cancer Social History Smoking Status: Never smoker Second Hand Exposure: No; Hx Alcohol Use: No (quit 03/2020) Hx Substance Use: No Preferred Language: Czech Communication Ability: Effective Visual Impairment: No Limitations Hearing Ability: Normal Bicycle Repairman Required: No Beliefs That Will Affect Care: None marital status: Current Living Situation: Spouse Current Living Situation Comment: lives at home with current occupational status: retired How many Children do You have: 3 Feels Safe at Home: Yes Childhood Exposure to Second-Hand Smoke: Yes Dental Care, Regularly: No Physical Activity Frequency: Does not Exercise Seatbelt Use: always Sunscreen Use: Yes Assistive Devices: Glasses and Special Shoe Review of Systems Review of Systems: All systems reviewed & are unremarkable except as noted in HPI & below Physical Exam Physical Exam: General: patient resting comfortably, NAD, non-toxic in appearance, AA&O x 4 Skin: warm, dry, intact, no rashes or lesions HEENT: NC/AT, PERRL, EOMI, anicteric sclera, conjunctiva without injection, external ear normal to inspection and nontender, nares patent, moist mucus membranes, dentition intact, no oropharyngeal lesions, neck supple, trachea midline, no LAD, no thyromegaly, no JVD Heart: +S1/S2, regular, no m/r/g Lungs: equal air entry bilaterally, no rales/rhonchi/wheezes Abd: +BS, soft, NT/ND, no masses/organomegaly/ascites Ext: warm, 2+ pulses in UE/LE bilaterally, no clubbing/cyanosis or edema Neuro: nonfocal, patient AA&O x 4, speech intact, no facial droop, moving all extremities on command with equal strength 5/5 Results & Data Results & Data ([facility]) Vital Signs (Past 12 Hours) Vital Signs Temp Pulse Resp BP Pulse Ox O2 Del Method O2 Flow Rate 11/22/21 23:00 Nasal Cannula 11/22/21 23:00 Nasal Cannula 11/22/21 23:00 94 Room Air 11/22/21 22:45 94 Nasal Cannula 4 11/22/21 22:30 93 Nasal Cannula 4 11/22/21 22:30 93 Nasal Cannula 3 11/22/21 22:15 Nasal Cannula 3 11/22/21 20:50 85 20 95 11/22/21 20:40 85 15 96 11/22/21 20:30 99 H 22 92 11/22/21 20:30 136/82 11/22/21 20:20 85 16 95 09/05/22 20:10 84 19 98 11/22/21 20:00 80 18 98 11/22/21 20:00 140/71 11/22/21 19:50 85 20 97 11/22/21 19:40 85 16 96 11/22/21 19:32 111/67 11/22/21 19:32 76 16 97 11/22/21 19:30 77 23 96 11/22/21 19:20 77 13 96 11/22/21 19:10 75 13 95 11/22/21 19:00 82 12 91 11/22/21 19:00 104/60 11/22/21 18:50 71 15 98 11/22/21 18:40 75 18 97 11/22/21 18:30 77 12 97 11/22/21 18:30 104/66 11/22/21 18:20 80 19 94 11/22/21 18:16 76 14 97 11/22/21 20:30 Room Air, Nasal Cannula 11/22/21 19:07 95 Nasal Cannula 2 11/22/21 19:02 85 L Room Air 2 11/22/21 19:02 85 L Room Air 11/22/21 19:02 85 L Room Air 2 11/22/21 18:08 37.6 C H 101 H 18 113/77 81 L Room Air Laboratory Results Laboratory Results WBC 6.78 K/ul (4.8-10.8) 11/22/21 19:15 RBC 5.43 M/uL (3.93-5.22) H 11/22/21 19:15 Hgb 14.1 g/dl (12.0-16.0) 11/22/21 19:15 Hct 43.1 % (34.1-44.9) 11/22/21 19:15 MCV 79.4 fL (80.0-100.0) L 11/22/21 19:15 MCH 26.0 pg (25.0-34.0) 11/22/21 19:15 MCHC 32.7 g/dL (32.0-36.0) 11/22/21 19:15 RDW Std Deviation 66.8 fL (36.4-46.3) H 11/22/21 19:15 RDW Coeff of Jeremie 23.8 % (11.5-14.5) H 11/22/21 19:15 Plt Count 124 K/uL (130-400) L 11/22/21 19:15 Immature Gran % (Auto) 0.3 % 11/22/21 19:15 Neut % (Auto) 51.2 % 11/22/21 19:15 Lymph % (Auto) 35.4 % 11/22/21 19:15 [place] % (Auto) 11.2 % 11/22/21 19:15 Eos % (Auto) 1.2 % 11/22/21 19:15 Baso % (Auto) 0.7 % 11/22/21 19:15 Neut # (Auto) 3.47 K/uL (1.4-6.5) 11/22/21 19:15 Lymph # (Auto) 2.40 K/uL (1.2-3.4) 11/22/21 19:15 [place] # (Auto) 0.76 K/uL (0.24-0.82) 11/22/21 19:15 Eos # (Auto) 0.08 K/uL (0-0.50) 11/22/21 19:15 Baso # (Auto) 0.05 K/uL (0-0.2) 11/22/21 19:15 Immature Gran # (Auto) 0.02 K/uL (0.00-0.02) 11/22/21 19:15 Anisocytosis Present 11/22/21 19:15 PT 13.8 Seconds (9.0-12.0) H 11/22/21 19:15 INR 1.3 (0.9-1.1) H 11/22/21 19:15 APTT 31.2 Seconds (21.0-31.0) H 11/22/21 19:15 PTT Ratio 1.1 11/22/21 19:15 Sodium 133 mmol/L (136-145) L 11/22/21 19:15 Potassium 3.3 mmol/L (3.5-5.1) L 11/22/21 19:15 Chloride 102 mmol/L (98-107) 11/22/21 19:15 Carbon Dioxide 24 mmol/L (21-32) 11/22/21 19:15 Anion Gap 7 (3-11) 11/22/21 19:15 BUN 9 mg/dl (6-23) 11/22/21 19:15 Creatinine 0.78 mg/dl (0.6-1.2) 11/22/21 19:15 Est Cr Clr Drug Dosing Not Reportable 11/22/21 19:15 Est GFR ( Amer) 97.8 ml/min 11/22/21 19:15 Est GFR (Non-Af Amer) 84.4 ml/min 11/22/21 19:15 BUN/Creatinine Ratio 11.5 (10-20) 11/22/21 19:15 Glucose 217 mg/dl (70-99(Fasting)) H 11/22/21 19:15 Lactate 1.3 mmol/L (0.4-2.0) 11/22/21 19:07 Calcium 8.5 mg/dl (8.5-10.1) 11/22/21 19:15 Magnesium 1.6 mg/dl (1.7-2.4) L 11/22/21 19:15 Total Bilirubin 1.3 mg/dl (0.2-1.0) H 11/22/21 19:15 AST 24 U/L (13-39) 11/22/21 19:15 ALT 15 U/L (7-52) 11/22/21 19:15 Alkaline Phosphatase 69 U/L (34-104) 11/22/21 19:15 Troponin I High Sens 5.3 pg/ml (0-14) 11/22/21 19:15 Total Protein 6.6 gm/dl (6.0-8.3) 11/22/21 19:15 Albumin 3.4 gm/dl (3.4-5.0) 11/22/21 19:15 Globulin 3.2 gm/dl (2.5-4.0) 11/22/21 19:15 Albumin/Globulin Ratio 1.1 (0.9-2) 11/22/21 19:15 Urine Color Yellow 11/22/21 21:20 Urine Appearance Cloudy (Clear) A 11/22/21 21:20 Urine pH 6.5 (4.5-7.5) 11/22/21 21:20 Ur Specific [place] 1.023 (1.000-1.030) 11/22/21 21:20 Urine Protein Trace (Negative) H 11/22/21 21:20 Urine Glucose (UA) Negative (Negative) 11/22/21 21:20 Urine Ketones Negative (Negative) 11/22/21 21:20 Urine Blood 1+ (Negative) H 11/22/21 21:20 Urine Nitrite Positive (Negative) A 11/22/21 21:20 Urine Bilirubin Negative (Negative) 11/22/21 21:20 Urine Urobilinogen Negative (Negative) 11/22/21 21:20 Ur Leukocyte Esterase 3+ (Negative) H 11/22/21 21:20 Urine WBC (Auto) >30 /hpf (0-5) H 11/22/21 21:20 Urine RBC (Auto) 0-4 /hpf (0-4) 11/22/21 21:20 U Hyaline Cast (Auto) 1-5 /lpf (0-5) 11/22/21 21:20 U Epithel Cells (Auto) >30 /lpf (0-5) H 11/22/21 21:20 Urine Bacteria (Auto) Negative (Negative) 11/22/21 21:20 Adenovirus (PCR) Not Detected (NotDetected) 11/22/21 19:15 B. pertussis DNA (PCR) Not Detected (NotDetected) 11/22/21 19:15 B.parapertussis DNA PCR Not Detected (NotDetected) 11/22/21 19:15 C. pneumoniae DNA (PCR) Not Detected (NotDetected) 11/22/21 19:15 Coronavirus OC43 (PCR) Not Detected (NotDetected) 11/22/21 19:15 Coronavirus HKU1 (PCR) Not Detected (NotDetected) 11/22/21 19:15 Coronavirus 229E (PCR) Not Detected (NotDetected) 11/22/21 19:15 SARS-CoV-2 (PCR) Not Detected (NotDetected) 11/22/21 19:15 Coronavirus NL63 (PCR) Not Detected (NotDetected) 11/22/21 19:15 Human Metapneumovir PCR Not Detected (NotDetected) 11/22/21 19:15 Influenza Type A (PCR) Not Detected (NotDetected) 11/22/21 19:15 Influenza Type B (PCR) Not Detected (NotDetected) 11/22/21 19:15 M. pneumoniae (PCR) Not Detected (NotDetected) 11/22/21 19:15 Parainfluenza 1 (PCR) Not Detected (NotDetected) 11/22/21 19:15 Parainfluenza 2 (PCR) Not Detected (NotDetected) 11/22/21 19:15 Parainfluenza 3 (PCR) Not Detected (NotDetected) 11/22/21 19:15 Parainfluenza 4 (PCR) Not Detected (NotDetected) 11/22/21 19:15 RSV (PCR) Not Detected (NotDetected) 11/22/21 19:15 Entero/Rhino (PCR) Not Detected (NotDetected) 11/22/21 19:15 Impressions Chest X-Ray 11/22/21 18:37 XR chest 1V portable CLINICAL HISTORY: SEPSIS COMPARISON STUDY: Chest radiograph July 19, 2021. Chest CT October 15, 2020. FINDINGS: Lung volumes are normal. Lungs are clear. There is no pneumothorax or pleural effusion. Cardiac size is normal. Mediastinal contours are normal. There is mild interstitial thickening, similar to prior exam. IMPRESSION: Interstitial thickening. Although similar to prior exam, this may reflect mild pulmonary edema. ACT 112: Negative or not required by law. Electronically signed by: Milton Mcintosh M.D. 11/22/2021 7:54 PM PG Care Time/CCT Total # of Minutes Spent Total Time Spent with Patient: Total time spent is greater than 50% in coordination of care (as documented) at patient's floor/unit and/or counseling patient: Coding Level of Care Code 56215 Initial Inpt Care Lvl 3 Diagnoses Hypoxemia R09.02 Acute viral syndrome B34.9 UTI (urinary tract infection) N39.0 History of alcohol abuse F10.11 Depression F32.9 Diabetes type 2, uncontrolled E11.65 Alcoholic cirrhosis of liver K70.30
[2021-11-23] MEDS ORDERED: ACETAMINOPHEN 325 MG TAB PO PRN (01:15)
[2021-11-23] MEDS ORDERED: CARBOHYDRATES FOR HYPOGLYCEMIA PO PRN (01:15)
[2021-11-23] MEDS ORDERED: FUROSEMIDE INJ 20 MG/2 ML VIAL IV ONE (01:15)
[2021-11-23] MEDS ORDERED: LACTULOSE SYRUP 20 GM/30 ML UDC PO PRN (01:15)
[2021-11-23] MEDS ORDERED: GLUCOSE 10 TAB/TUBE PO PRN (01:15)
[2021-11-23] MEDS ORDERED: GLUCOSE 40% GEL 15 GM TUBE PO PRN (01:15)
[2021-11-23] MEDS ORDERED: DEXTROSE 50% 50 ML SYRINGE IV PRN (01:15)
[2021-11-23] MEDS ORDERED: GLUCAGON FOR INJ 1 MG VIAL SQ PRN (01:15)
[2021-11-23] MEDS ORDERED: POTASSIUM CHLORIDE CRTAB 20 MEQ TABCR PO STA (01:28)
[2021-11-23] MEDS ORDERED: ALBUTEROL HFA 8 GM INHALER INH PRN (01:48)
[2021-11-23 01:53] LABS: Procalcitonin 0.17 ng/ml (0-0.5)
[2021-11-23 01:59] LABS: Lyme Ab IgG w/WB Rflx Negative (Negative); Lyme Ab IgM w/WB Rflx Negative (Negative)
[2021-11-23] MEDS: MAGNESIUM SULFATE / D5W 1 GM/100 ML BAG IV SCH ×3 (02:08→05:42)
[2021-11-23 02:10] LABS: Base Excess ABG 0.3 mEq/L (-9-1.8); HCO3 ABG 23 mmol/L (19-24); Oxygen Saturation ABG 97.2 % (90-95); PCO2 ABG 32 mmHg (35-46); PO2 ABG 68 mmHg (80-95); pH ABG 7.47 (7.35-7.45)
[2021-11-23 02:11] LABS: Allen Test Pos (Pos)
[2021-11-23] MEDS: cefTRIAXone SODIUM 2,000 MG in DEXTROSE 5% 50 ML IV SCH (04:08)
[2021-11-23 06:40] LABS: Hematocrit (blood only) 40.3 % (34.1-44.9); Hemoglobin 13.3 g/dl (12.0-16.0); Mean Corpuscular Hemoglobin 25.6 pg (25.0-34.0); Mean Corpuscular Volume 77.6 fL (80.0-100.0); RDW Coefficient of Variation 23.7 % (11.5-14.5); RDW Standard Deviation 64.8 fL (36.4-46.3); Red Blood Count 5.19 M/uL (3.93-5.22); White Blood Count 7.21 K/ul (4.8-10.8)
[2021-11-23 06:56] LABS: INR 1.3 (0.9-1.1); Prothrombin Time 13.5 Seconds (9.0-12.0)
[2021-11-23 07:12] LABS: Platelet Count 120 K/uL (130-400)
[2021-11-23 07:13] LABS: Albumin Level 3.3 gm/dl (3.4-5.0); BUN Creatinine Ratio 11.3 (10-20); Bilirubin Direct 0.4 mg/dl (0-0.2); Bilirubin,Total 1.2 mg/dl (0.2-1.0); Calcium 8.2 mg/dl (8.5-10.1); Creatinine Clr Calc Pharmacy 108.3 ml/min; Est GFR (Non-African American) 100.1 ml/min; Magnesium 2.2 mg/dl (1.7-2.4); Potassium 3.7 mmol/L (3.5-5.1); Total Protein 6.4 gm/dl (6.0-8.3)
--- NOTE | 2021-11-23 08:11 | CT Scan Report ---
CHEST CTA for PULMONARY ARTERIES CT DOSE: 399.07 mGy.cm HISTORY: Fever. Chest tightness. hypoxia TECHNIQUE: Multiaxial CT images of the chest were performed following the intravenous administration of contrast to evaluate the pulmonary arteries. Maximal intensity projection images were also obtaine d. A dose lowering technique was utilized adhering to the principles of ALARA. COMPARISON STUDY: Chest CTA 10/15/2020. FINDINGS: Limited views the upper abdomen demonstrate a cirrhotic liver, splenomegaly, and upper abdo hitesh varicosities. This remains unchanged. Embolization coils are noted in the left upper quadrant, unchanged. The thyroid gland enhances normally. There is a single prominent left subpectoral/axillary lymph node on image 204 which measures 1.3 x 0.9 cm. This remains unchanged. Large paraesophageal va rices, unchanged. Normal caliber esophagus. No mediastinal or hilar lymphadenopathy. No pleural or pe ricardial effusions. The heart is normal in size. Moderate calcified plaque within the coronary arter ies. Normal caliber thoracic aorta with no evidence for dissection. No filling defects within the pul monary arteries to suggest a pulmonary embolus. No fractures within the visualized osseous structures . No pneumothorax. The central airways are patent. Mild dependent changes seen at the lungs posterior ly. Otherwise, no focal lung consolidations to suggest pneumonia. IMPRESSION: 1. No evidence for pulmonary embolus. 2. No focal lung consolidations to suggest pneumonia. 3. Cirrhotic liver with evidence for portal hypertension, unchanged. ACT 112: Negative or not required by law. Electronically signed by: Larry Tapia M.D. 11/23/2021 8:10 AM
[2021-11-23] MEDS: INSULIN ASPART PER UNIT SC SCH ×4 (08:13→21:02)
[2021-11-23] MEDS: FOLIC ACID 1 MG TAB PO SCH (08:15)
[2021-11-23] MEDS: FUROSEMIDE 20 MG TAB PO SCH (08:17)
[2021-11-23] MEDS: MAGNESIUM OXIDE 400 MG TAB PO SCH (08:18)
[2021-11-23] MEDS: nadoloL 40 MG TAB PO SCH (08:18)
[2021-11-23] MEDS: rifAXIMin 550 MG TABLET PO SCH ×2 (08:19→20:03)
[2021-11-23] MEDS: SERTRALINE HCL 50 MG TABLET PO SCH (08:19)
[2021-11-23] MEDS: SPIRONOLACTONE 25 MG TAB PO SCH (08:19)
[2021-11-23] MEDS: PANTOprazole 40 MG TAB PO SCH (08:19)
[2021-11-23] MEDS: THIAMINE HCL 100 MG TAB PO SCH (08:20)
[2021-11-23] MEDS: LANTUS PER UNIT CHARGE SQ SCH ×2 (08:26→21:01)
--- NOTE | 2021-11-23 10:14 | Hospitalist Progress Note ---
Date of Service November 23, 2021 Assessment & Plan (1) Hypoxemia: Plan: 56yo female presenting with febrile illness. Hypoxic on room air ranging 79 - 85%, improved with supplemental O2, presently 95% on 5L. -Patient denies feeling short of breath. Has had some chest tightness, cough and wheezing. -No history of asthma or lung disease. -No evidence of volume overload or pulmonary edema. -CTA: No PE, no focal consolidation to suggest pneumonia, cirrhotic liver with overall appearance unchanged from prior Blood smear pending ABG with mild respiratory alkalosis Sodium 131, potassium normal, creatinine normal at baseline and currently at 0.62 Bilirubin chronically mildly elevated, at baseline Lyme negative, Pittore PCR panel negative, preliminary Anaplasma/Babesia smear negative with send out PCR pending (2) Acute viral syndrome: Plan: Etiology uncertain. Respiratory viral panel is NEGATIVE. Patient denies recent tick bites but reports her has had multiple ticks on him over the summer. They also have three dogs in the home. -Initial Lyme screen negative, PCR confirmation send out pending. Peripheral smear pending. (3) UTI (urinary tract infection): Plan: UA suggestive of infection -Follow culture -Ceftriaxone 2gm IV daily (4) History of alcohol abuse: Plan: Patient no longer drinks. She has history of liver cirrhosis, esophageal varices and metabolic encephalopathy. Cirrhosis appears to be compensated at this time. -Continue Thiamine 100mg po qAM and Folic Acid 1mg po daily -Continue Lasix 20mg po qAM -Continue Spironolactone 50mg po qAM -Continue Rifaximin 550mg po BID -Continue nadolol 20mg po daily -Continue Lactulose 20mg po qAM PRN constipation (5) Depression: Plan: Chronic -Continue Sertraline 150mg po daily (6) Diabetes type 2, uncontrolled: Plan: Chronic. Last HgbA1C = 9 on 03/25/21 -Continue Lantus 20u BID -ISS -Goal blood sugar 110 - 140 (7) Alcoholic cirrhosis of liver: Plan: Appears to be compensated management as above Admission and Anticipated Discharge Date Admission Date: November 22, 2021 Subjective Feels extremely fatigued this morning, but much better than yesterday overall. Denies fever/chills/sweats this morning. Reports she had a low-grade fever all week up until admission to the ER. Endorses body aches, fever to 102 at home. Nausea and vomiting, clear, previously but this has not recurred overnight. She has a dry cough. Denies wheezing today. Review of Systems Review of Systems: All systems reviewed & are unremarkable except as noted in Subjective Physical Exam Physical Exam: General: A&Ox3. NAD. Cooperative. Skin is warm, slightly moist. On nasal cannula HEENT: Atraumatic, normocephalic. Pulm: CTAB A&P. -wheezes, -rales, -rhonchi. Symmetrical chest rise. No increase in work of breathing. No respiratory distress. Cardiac: RRR, -mrg. Radial pulses intact and symmetrical. Abdominal: Nontender, nondistended, soft. BS present. Results & Data Results & Data ([facility]) Vital Signs (Past 12 Hours) Vital Signs Temp Pulse Pulse Resp BP BP Pulse Ox 11/23/21 08:30 89/54 L 11/23/21 07:30 11/23/21 07:30 83 11/23/21 06:41 37.8 C H 78 20 92/54 L 96 11/23/21 01:00 95 H 11/23/21 03:00 37.7 C H 81 20 101/60 93 11/23/21 00:50 11/23/21 00:50 38.0 C H 24 97/64 L 96 11/23/21 01:01 74 21 107/67 95 11/23/21 00:00 94 11/22/21 23:30 97 11/22/21 23:00 11/22/21 23:00 11/22/21 23:00 94 11/22/21 22:45 94 11/22/21 22:30 93 11/22/21 22:30 93 11/22/21 22:15 O2 Del Method O2 Flow Rate 11/23/21 08:30 11/23/21 07:30 Nasal Cannula 5 11/23/21 07:30 11/23/21 06:41 5 11/23/21 01:00 11/23/21 03:00 5 11/23/21 00:50 Nasal Cannula 5 11/23/21 00:50 Nasal Cannula 5 11/23/21 01:01 Nasal Cannula 5 11/23/21 00:00 Nasal Cannula 4 11/22/21 23:30 Nasal Cannula 4 11/22/21 23:00 Nasal Cannula 11/22/21 23:00 Nasal Cannula 11/22/21 23:00 Room Air 11/22/21 22:45 Nasal Cannula 4 11/22/21 22:30 Nasal Cannula 4 11/22/21 22:30 Nasal Cannula 3 11/22/21 22:15 Nasal Cannula 3 PG Care Time/CCT Total # of Minutes Spent Total Time Spent with Patient: Total time spent is greater than 50% in coordination of care (as documented) at patient's floor/unit and/or counseling patient: Coding Level of Care Code 81349 Subseq Hosp Care Lvl 2 Diagnoses Hypoxemia R09.02 Acute viral syndrome B34.9 UTI (urinary tract infection) N39.0 History of alcohol abuse F10.11 Depression F32.9 Diabetes type 2, uncontrolled E11.65 Alcoholic cirrhosis of liver K70.30
[2021-11-23 10:44] LABS: ALC (manual) 3.82 K/uL (1.2-3.4); Eosinophils # (manual) 0.07 K/uL (0-0.50); Eosinophils % (manual) 1 %; Large Granular Lymph % (manual) 43 %; Lymphocytes # (manual) 0.72 K/uL (1.2-3.4); Lymphocytes % (manual) 10 %; Monocytes # (manual) 0.22 K/uL (0.24-0.82); Monocytes % (manual) 3 %; Neutrophils % (manual) 43 %
--- NOTE | 2021-11-23 11:34 | Electrocardiogram Report ---
Test Reason : Blood Pressure : / mmHG Vent. Rate : 077 BPM Atrial Rate : 077 BPM P-R Int : 136 ms QRS Dur : 094 ms QT Int : 432 ms P-R-T Axes : 061 053 062 degrees QTc Int : 488 ms Normal sinus rhythm Prolonged QT Abnormal ECG When compared with ECG of 19-JUL-2021 11:56, No significant change was found Confirmed by Mario Murphy ([id number] on 11/23/2021 11:33:45 AM Referred By: REFERRED SELF Confirmed By:Kostas Murphy
[2021-11-24] MEDS: cefTRIAXone SODIUM 2,000 MG in DEXTROSE 5% 50 ML IV SCH (03:51)
[2021-11-24 08:19] LABS: Hemoglobin 14.2 g/dl (12.0-16.0); Mean Corpuscular Hemoglobin 26.1 pg (25.0-34.0); Mean Corpuscular Volume 78.9 fL (80.0-100.0); RDW Coefficient of Variation 23.6 % (11.5-14.5); RDW Standard Deviation 66.1 fL (36.4-46.3); Red Blood Count 5.45 M/uL (3.93-5.22); White Blood Count 6.13 K/ul (4.8-10.8)
[2021-11-24 08:26] LABS: Platelet Count 128 K/uL (130-400)
[2021-11-24] MEDS: INSULIN ASPART PER UNIT SC SCH ×3 (08:29→17:33)
[2021-11-24] MEDS: LANTUS PER UNIT CHARGE SQ SCH (08:29)
[2021-11-24] MEDS: MAGNESIUM OXIDE 400 MG TAB PO SCH (08:30)
[2021-11-24] MEDS: FOLIC ACID 1 MG TAB PO SCH (08:30)
[2021-11-24] MEDS: FUROSEMIDE 20 MG TAB PO SCH (08:30)
[2021-11-24] MEDS: nadoloL 40 MG TAB PO SCH (08:31)
[2021-11-24] MEDS: rifAXIMin 550 MG TABLET PO SCH (08:32)
[2021-11-24] MEDS: SPIRONOLACTONE 25 MG TAB PO SCH (08:32)
[2021-11-24] MEDS: PANTOprazole 40 MG TAB PO SCH (08:32)
[2021-11-24] MEDS: THIAMINE HCL 100 MG TAB PO SCH (08:32)
[2021-11-24] MEDS: SERTRALINE HCL 50 MG TABLET PO SCH (08:33)
[2021-11-24 08:41] LABS: Anisocytosis Present; Basophils # (auto) 0.05 K/uL (0-0.2); Basophils % (auto) 0.8 %; Eosinophils % (auto) 3.3 %; Immature Granulocytes # (auto) 0.01 K/uL (0.00-0.02); Immature Granulocytes % (auto) 0.2 %; Lymphocytes # (auto) 2.96 K/uL (1.2-3.4); Lymphocytes % (auto) 48.3 %; Monocytes # (auto) 0.52 K/uL (0.24-0.82); Monocytes % (auto) 8.5 %; Neutrophils # (auto) 2.39 K/uL (1.4-6.5); Neutrophils % (auto) 38.9 %; Ovalocytes 1+; Spherocytes 2+
[2021-11-24 08:55] LABS: BUN Creatinine Ratio 14.5 (10-20); Calcium 8.7 mg/dl (8.5-10.1); Creatinine Clr Calc Pharmacy 117.3 ml/min; Est GFR (African American) 120.7 ml/min; Est GFR (Non-African American) 104.1 ml/min; Potassium 3.9 mmol/L (3.5-5.1)
[2021-11-24 08:56] LABS: Albumin Level 3.4 gm/dl (3.4-5.0); Bilirubin,Total 1.1 mg/dl (0.2-1.0); Globulin 3.5 gm/dl (2.5-4.0); Total Protein 6.9 gm/dl (6.0-8.3)
[2021-11-24 09:05] LABS: Ferritin 77.4 ng/ml (8-388)
--- NOTE | 2021-11-24 10:31 | XCELERA ---
[id number]
--- NOTE | 2021-11-24 19:53 | Discharge Summary ---
Date of Service November 24, 2021 Admission HPI Per Admitting Provider Hilary Gutiérrez is a 56yo female with history of liver cirrhosis with esophageal varices, diabetes and anxiety presenting with fever and hypoxia. Patient reports fever ongoing for the last 4 days with associated body aches. Fever to 102, relieved temporarily with Tylenol. Also with nausea and vomiting x 1 day. She has had poor appetite with decreased oral intake. She has had some chest tightness as well as non-productive cough and wheezing. She woke this AM with cold sores on her upper and lower lips. She has had cold sores in the past but never as bad. Patient denies chest pain, palpitations. Denies abdominal pain, diarrhea, rash. Patient denies weight gain, edema, orthopnea. Denies runny nose, watery eyes, sneezing. Patient denies sick contacts, recent travel. Denies change in medication. Patient hypoxic in room air to 81%. She was placed on supplemental oxygen in the ER with improvement in saturation. Upon removal of her supplemental O2 she was again hypoxic ranging 79% - 85%. Presently she is 95% on 5L ER Course: Valtrex, Albuterol, Cefepime, Zofran Principal Diagnosis Fever, hypoxia Discharge Exam Constitutional WD/WN, vitals as above Eyes PERRL, conjunctivae normal, anicteric sclerae ENMT external ear and nose normal, oropharynx normal Neck trachea midline, no thyromegaly Respiratory normal respiratory effort, lungs clear to auscultation Cardiovascular RRR, no murmur, no edema Gastrointestinal (Abdomen) normal bowel sounds, soft, nontender, no hepatosplenomegaly Musculoskeletal no cyanosis or clubbing, extremities motor strength 5/5 Skin no rashes, warm and dry Neurologic moves all extremities and awake; not confused Psychiatric A+Ox3, euthymic affect Discharge Data Allergies Allergy/AdvReac Type Severity Reaction Status Date / Time No Known Allergies Allergy Verified 11/22/21 23:55 Ordered Studies 11/22/21 19:34 CT angio chest PE protocol Urgent IMPRESSION: 1. No evidence for pulmonary embolus. 2. No focal lung consolidations to suggest pneumonia. 3. Cirrhotic liver with evidence for portal hypertension, unchanged. Hospital Course (1) Hypoxemia: Hilary Gutiérrez is a 56 year old female admitted to [facility] from November 22 - 2021 due to fever and hypoxia. CT chest, echocardiogram and multiple blood tests including methemoglobinemia and carboxyhemoglobinemia did not reveal a cause of your hypoxia. Suspect she had a viral illness which is affecting microscopic alveoli oxygen exchange. She reports a previous episode of needing oxygen temporarily after MSSA infection. Blood cultures on this occasion are negative @ 48 hours and no acute back pain or foot pain where her MSSA infection previously initiated. She was initially treated with ceftriaxone due to concern for UTI however given lack of symptoms of this and urine culture growing mixed aylin this was subsequently discontinued. Her hypoxia has improved during her admission and on discharge is not needing oxygen at rest but requiring 4LPM O2 on exertion. She was advised to follow up with her primary care provider in 1-2 weeks to see if she still required oxygen. If she is still requiring oxygen at follow up appointment recommend pulmonology referral. Please follow up anaplasma and Babesia PCR although suspect these are unlikely and peripheral smear negative therefore antibiotics discontinued. (2) Acute viral syndrome: (3) UTI (urinary tract infection): Ruled out - mixed aylin on urine culture and no symptoms (4) History of alcohol abuse: (5) Depression: (6) Diabetes type 2, uncontrolled: (7) Alcoholic cirrhosis of liver: Total Time Total Time Spent Total Time Spent (In Minutes): 55 Discharge Plan Discharge Items Patient Disposition: Home - Self-Care Reason For Visit: FEVER, HYPOXIA Discharge Diagnosis: Fever, hypoxia Activity: Resume your previous activity Non-emergency contact: Primary Care Provider Call non-emergency contact if: you have any medication questions and your sy mptoms worsen Follow-up/Referrals: Kimberlee rIeland MD [Primary Care Provider] - 12/02/21 4:00 pm Diet: Regular Addtl Attending Provider Instructions: You were admitted to [facility] from November 22 - 2021 due to fever and low oxygen levels. CT chest, echocardiogram and multiple blood tests did not reveal a cause of your hypoxia. Suspect you had a viral illness which is affecting oxygen exchange in your alveoli. This appears to be improving and appears to have occurred after prior admissions. Recommend using 4LPM O2 on exertion. Please follow up with your primary care provider in 1-2 weeks to see if you need this ongoing. If you are still requiring oxygen on exertion at your follow up appointment recommend referral to pulmonology. Pending Studies at Discharge: No Stand-Alone Forms: My [facility], Smoking Cessation Medications and DC Order Prescriptions: Continued spironolactone 25 mg tablet 50 mg PO QAM Qty: 60 5RF furosemide 20 mg tablet 20 mg PO QAM Qty: 30 5RF folic acid 1 mg tablet 1 mg PO QAM Qty: 30 5RF nadolol 20 mg tablet 20 mg PO QAM Qty: 90 1RF pantoprazole 40 mg tablet,delayed release (DR/EC) 40 mg PO QAM Qty: 30 5RF (DME) FreeStyle Cyndi 2 Sensor Kit See Rx Instructions .Route Qty: 7 3RF Rx Instructions: Change every 14 days thiamine HCl (vitamin B1) [Vitamin B-1] 100 mg tablet 100 mg PO QAM Qty: 30 5RF sertraline 100 mg tablet 150 mg PO DAILY Qty: 45 5RF magnesium oxide 400 mg (241.3 mg magnesium) tablet 400 mg PO QAM Qty: 90 4RF Xifaxan 550 mg tablet See Rx Instructions .ROUTE .COMPLEX Qty: 60 11RF Dose Instruction: TAKE 1 TABLET BY MOUTH TWICE A DAY Rx Instructions: TAKE 1 TABLET BY MOUTH TWICE A DAY (DME) pen needle, diabetic [BD Ultra-Fine Beatriz Pen Needle] 32 gauge x 5/32" needle See Rx Instructions .Route Qty: 400 3RF Rx Instructions: Use a new pen needle 4x a day Basaglar KwikPen U-100 Insulin 100 unit/mL (3 mL) insulin pen 50 unit subcut QAM Qty: 3 3RF Ozempic 0.25 mg or 0.5 mg(2 mg/1.5 mL) pen injector 0.25 mg subcut Q7D Qty: 1.5 3RF Rx Instructions: mondays insulin aspart U-100 [Novolog Flexpen U-100 Insulin] 100 unit/mL (3 mL) insulin pen 10 unit subcut WM Rx Instructions: 10 units before each meal, Extra 4 units for every 50mg/dL glucose above 150 mg/dL, if above 400 call PCP Discharge Orders: Discharge Order (Routine); Ordered 11/24/21 Ordered By: Alan Brewster Admission Data Admit Date/Time: 11/22/21 23:48 Attending Provider: Alan Brewster Admit Provider: Yarelis Fernández Primary Care Provider: Kimberlee Ireland Other Interventions: Discharge Summary Assessment (RN) Last Done: 11/24/21 19:15 Coding Level of Care Code D/C DAY MANAGEMENT >30 MINS Diagnoses Hypoxemia R09.02 Acute viral syndrome B34.9 UTI (urinary tract infection) N39.0 History of alcohol abuse F10.11 Depression F32.9 Diabetes type 2, uncontrolled E11.65 Alcoholic cirrhosis of liver K70.30
[2021-11-25 15:47] LABS: Babesia microti DNA Not Detected (Not Detected)
== END 2021-11-24 20:50 | disposition home or self-care (01) | DRG 866 ==
LOC: ED 18:02 → SUATTDRO 23:48 → 2W 23:48
DX: Z79.4 Long term (current) use of insulin; R82.90 Unspecified abnormal findings in urine; B00.1 Herpesviral vesicular dermatitis; Z86.16 Personal history of COVID-19; E87.3 Alkalosis; K70.30 Alcoholic cirrhosis of liver without ascites; Z83.3 Family history of diabetes mellitus; F32.A Depression, unspecified; R09.02 Hypoxemia; F10.11 Alcohol abuse, in remission; F41.9 Anxiety disorder, unspecified; E83.42 Hypomagnesemia; E11.9 Type 2 diabetes mellitus without complications; B34.9 Viral infection, unspecified; Z79.899 Other long term (current) drug therapy